=== PATIENT | male | born 1955 | race Caucasian/White ===

== ENCOUNTER 2020-06-19 14:55 | Emergency (ER) | payer OTHER, SELFPAY ==
--- NOTE | ~2020-06-19 | XR_ITS ---
EXAMINATION: XR abdomen/kub 1V INDICATION: Possible accidental ingestion of dentures TECHNIQUE: Supine views of the abdomen were obtained on 2 radiographs. COMPARISON: None FINDINGS: No radiopaque foreign body is identified. The bowel gas pattern is normal. There is calcifi ed atherosclerosis. There is mild osteoarthritis of the hips. No dilated loops of bowel are identifie d. IMPRESSION: 1. No definite radiopaque foreign body identified. Reviewed, dictated and finalized at location A. [employer] ATTORNEY
--- NOTE | 2020-06-19 15:04 | ED.GENADULT ---
HPI - General Adult General Chief complaint: Dental/Oral Stated complaint: pain Time Seen by Provider: 06/19/20 15:21 Source: patient and RN notes reviewed Mode of arrival: ambulatory Limitations: no limitations History of Present Illness HPI narrative: 65-year-old male presents with concern for possibly ingesting a foreign body. He reports he believes he swallowed his bottom row dentures while he was sleeping. He denies any indigestion, nausea, vomiting, abdominal pain, constipation MD complaint: Foreign body ingestion Related Data Home Medications Medication Instructions Recorded Confirmed alfuzosin 10 mg PO DAILY 06/19/20 06/19/20 amlodipine 10 mg DAILY 06/19/20 06/19/20 gabapentin 300 mg TID 06/19/20 06/19/20 lisinopril 20 mg DAILY 06/19/20 06/19/20 oxybutynin chloride 10 mg PO DAILY 06/19/20 06/19/20 tamsulosin 0.4 mg PO DAILY 06/19/20 06/19/20 Allergies Allergy/AdvReac Type Severity Reaction Status Date / Time No Known Allergies Allergy Mild Verified 04/20/08 13:00 Review of Systems Review of Systems: Narrative: CONSTITUTIONAL: Denies malaise, chills, sweats, or fever. CARDIOVASCULAR: Denies chest pain, palpitations, or edema. RESPIRATORY: Denies cough or dyspnea. GASTROINTESTINAL: Denies abdominal pain, nausea, vomiting, diarrhea, bloody, or mucous stools. All systems reviewed & are unremarkable except as noted in HPI and below PMFSH Comments At time of signature, agree with nursing past medical, surgical, social and family history. There is no relevant family history pertinent to the presenting complaint Exam Narrative: Exam Narrative: GENERAL: Well-appearing, well-nourished, and in no acute distress. HEAD: Normocephalic. EYES: PERRLA, conjunctivae clear. NECK: Supple. No lymphadenopathy CHEST: Clear to auscultation. No respiratory distress. HEART: Regular rate and rhythm. ABDOMEN: Soft, nontender upon palpation, nondistended, normal active bowel sounds, no palpable or pulsatile masses, no guarding. SKIN: Warm, dry NEURO: Alert and oriented x3. PSYCH: Normal mood and affect Course Course Emergency Course: Patient is aware of diagnosis, understands and agrees to treatment plan. Anticipatory guidance given. Patient agrees to follow-up as directed and is aware of reasons to seek care at the emergency department. Portions of this record may have been created with voice recognition software Vital Signs Vital signs: Vital Signs Temperature 98 F 06/19/20 15:05 Pulse Rate 92 06/19/20 15:05 Respiratory Rate 20 06/19/20 15:05 Blood Pressure 147/83 H 06/19/20 15:05 Pulse Oximetry 100 06/19/20 15:05 Temperature 98 F 06/19/20 15:05 Pulse Rate 92 06/19/20 15:05 Respiratory Rate 20 06/19/20 15:05 Blood Pressure 147/83 H 06/19/20 15:05 Pulse Oximetry 100 06/19/20 15:05 Reviewed. Medical Decision Making MDM Narrative Medical decision making narrative: Exam findings and imaging show no acute concerns or changes; patient is non-toxic appearing and is in no distress. Patient is appropriate for outpatient treatment and follow-up. Vital Signs Vital Signs: Vital Signs Temperature 98 F 06/19/20 15:05 Pulse Rate 92 06/19/20 15:05 Respiratory Rate 20 06/19/20 15:05 Blood Pressure 147/83 H 06/19/20 15:05 Pulse Oximetry 100 06/19/20 15:05 Temperature 98 F 06/19/20 15:05 Pulse Rate 92 06/19/20 15:05 Respiratory Rate 20 06/19/20 15:05 Blood Pressure 147/83 H 06/19/20 15:05 Pulse Oximetry 100 06/19/20 15:05 Imaging Data My impression: Images reviewed, interpreted by radiologist, agree, see report. Radiologist's impression: EXAMINATION: XR abdomen/kub 1V INDICATION: Possible accidental ingestion of dentures TECHNIQUE: Supine views of the abdomen were obtained on 2 radiographs. COMPARISON: None FINDINGS: No radiopaque foreign body is identified. The bowel gas pattern is normal. There is calcified atherosclerosis. There is mild oste
[2020-06-19 15:05] VITALS: BP 147/83; PULSE 92; RESP 20; TEMP 36.6; O2SAT 100
== END 2020-06-19 15:28 | disposition home or self-care (01) ==
PROVIDERS: Emergency Provider Nurse Practitioner; PCP Family Medicine
DX: Z71.1 Person with feared health complaint in whom no diagnosis is made (principal); I25.10 Atherosclerotic heart disease of native coronary artery without angina pectoris; I10 Essential (primary) hypertension; Z85.46 Personal history of malignant neoplasm of prostate
CPT/HCPCS: 74018; 99213; G0463

== ENCOUNTER 2020-06-21 12:56 | Emergency (ER) | payer OTHER, SELFPAY ==
--- NOTE | ~2020-06-21 | XR_ITS ---
EXAMINATION: XR wrist LT min 3V DATE: 06/21/2020 13:53 INDICATION: Left wrist pain and swelling TECHNIQUE: Four views of the left wrist were obtained. COMPARISON: 07/23/2019 FINDINGS: There is an old healed fracture of the distal ulna. Again seen is unchanged advanced osteoa rthritis of the radial scaphoid joint and moderate osteoarthritis of the distal radial ulnar joint. T here is mild osteoarthritis at the first carpometacarpal joint. Dorsal soft tissue swelling is seen o verlying the carpals on the lateral view. IMPRESSION: 1. Dorsal soft tissue swelling of the hand without definite acute osseous abnormality. 2. Polyarticular osteoarthritis. Reviewed, dictated and finalized at location A. E CHOREOGRAPHER IMPRESSION: 1. Dorsal soft tissue swelling of the hand without definite acute osseous abnor mality. 2. Polyarticular osteoarthritis.
[2020-06-21 12:54] VITALS: BP 178/118; PULSE 100; RESP 18; TEMP 36.4; O2SAT 100
[2020-06-21] MEDS: fentaNYL CITRATE INJ (*CRX) 100 MCG/2 ML VIAL 50 MCG IV PUSH (13:13)
[2020-06-21 13:15] LABS: Basophils Absolute Auto 0.1 K/mm3 (0.0-0.1); Basophils Percent Auto 0.7 % (0.2-1.2); Eosinophils Absolute Auto 0.1 K/mm3 (0-0.3); Eosinophils Percent Auto 1.2 % (0-4.4); Hematocrit 34.3 % (42.0-52.0); Hemoglobin 12.6 g/dL (14.0-18.0); Immature Granulocyte Absolute 0.06 K/mm3 (0.00-0.031); Immature Granulocyte Percent A 0.7 % (0-0.5); Lymphocytes Absolute Auto 1.04 K/mm3 (0.9-3.2); Lymphocytes Percent Auto 12.6 % (18.3-44.2); Mean Corpuscular HGB Conc 36.7 g/dl (32-36); Mean Corpuscular Hemoglobin 33.5 pg (26-34); Mean Corpuscular Volume 91.2 fl (80-100); Mean Platelet Volume 8.9 fl (7.4-10.4); Monocytes Absolute Auto 0.9 K/mm3 (0.1-0.6); Monocytes Percent Auto 11.3 % (2.6-8.5); Neutrophils Percent Auto 73.5 % (45.5-73.1); Platelet Count Result 160 k/mm3 (150-375); Red Blood Count 3.76 M/mm3 (4.6-6.20); Red Cell Distribution Width 12.7 % (11.5-14.5); White Blood Count 8.2 K/mm3 (4.5-10.0)
[2020-06-21 13:30] LABS: Alanine Aminotransferase 21 U/L (4-50); Albumin Level 4.3 g/dL (3.5-5.1); Alkaline Phosphatase 81 U/L (38-126); Anion Gap 10 mmol/L (8-16); Aspartate Amino Transferase 36 U/L (17-59); Bilirubin,Total 1.1 mg/dL (0.2-1.3); Blood Urea Nitrogen 15 mg/dL (9-20); CRP 1.1 mg/dL (<1.0); Calcium 9.1 mg/dL (8.4-10.2); Carbon Dioxide 24 mmol/L (22-30); Chloride 101 mmol/L (98-107); Estimated CRCL calculation 63 ml/min; Estimated Glomerular Filt Rate > 60; Glucose 105 mg/dL (75-110); Potassium 4.3 mmol/L (3.4-5.0); Sodium 135 mmol/L (137-145); Uric Acid 7.9 mg/dL (3.5-8.5)
--- NOTE | 2020-06-21 14:37 | ED.GENADULT ---
HPI - General Adult General Chief complaint: Extremity Injury, Upper Stated complaint: wrist pain/swelling Time Seen by Provider: 06/21/20 12:56 Source: patient Mode of arrival: EMS Limitations: no limitations History of Present Illness HPI narrative: 65-year-old with a history of lymphoma, hepatitis C, hypertension, CKD here with complaints of left wrist pain for past 2 days. Patient states that there is increasing pain and swelling since this morning. He denies any trauma. No history of fever or chills. No previous history of gout. Denies IV drug abuse. Onset (ago): day(s) (2) Location: upper extremity Radiation: non-radiation Severity: moderate Pain Consistency: constant Relieving factors: none Exacerbating factors: movement Associated symptoms: denies other symptoms Related Data Home Medications Medication Instructions Recorded Confirmed alfuzosin 10 mg PO DAILY 06/19/20 06/19/20 amlodipine 10 mg DAILY 06/19/20 06/19/20 gabapentin 300 mg TID 06/19/20 06/19/20 lisinopril 20 mg DAILY 06/19/20 06/19/20 oxybutynin chloride 10 mg PO DAILY 06/19/20 06/19/20 tamsulosin 0.4 mg PO DAILY 06/19/20 06/19/20 Allergies Allergy/AdvReac Type Severity Reaction Status Date / Time No Known Allergies Allergy Mild Verified 06/21/20 13:03 Review of Systems Review of Systems: All systems reviewed & are unremarkable except as noted in HPI and below Constitutional: Constitutional: Reports no additional constitutional complaints ENT: Reports as per HPI Cardiovascular: Cardiovascular: Reports no additional cardiovascular complaints Respiratory: Respiratory: Reports no additional respiratory complaints Gastrointestinal: Gastrointestinal: Reports no additional gastrointestinal complaints Neurologic: Reports as per HPI Endocrine: Endocrine: Reports no additional endocrine complaints Exam Narrative: Exam Narrative: GENERAL: Well-appearing, well-nourished, and in no acute distress. HEAD: Normocephalic, atraumatic. EYES: PERRLA and EOMI. ENT: Nares clear, no rhinorrhea or epistaxis. Mucous membranes moist. NECK: Supple. CHEST: Clear to auscultation. No respiratory distress. HEART: Regular rate and rhythm. No murmur heard. Normal peripheral pulses. ABDOMEN: Soft, nontender, nondistended, normal active bowel sounds. Extremities left wrist swollen erythematous ten is swollen, tender painful range of motion SKIN: Warm, dry, no rash. NEURO: No focal deficits. Alert and oriented x3. PSYCH: Normal mood and affect. Course Course Emergency Course: Inform patient about his lab work, x-ray findings. Advised him to take prednisone as prescribed and pain medication as well. Recommended him to follow-up with his primary doctor. Vital Signs Vital signs: Vital Signs Temperature 36.4 C 06/21/20 12:54 Pulse Rate 100 06/21/20 12:54 Respiratory Rate 18 06/21/20 12:54 Blood Pressure 178/118 H 06/21/20 12:54 Pulse Oximetry 100 06/21/20 12:54 Temperature 36.4 C 06/21/20 12:54 Pulse Rate 100 06/21/20 12:54 Respiratory Rate 18 06/21/20 12:54 Blood Pressure 178/118 H 06/21/20 12:54 Pulse Oximetry 100 06/21/20 12:54 Medical Decision Making Vital Signs Vital Signs: Vital Signs Temperature 36.4 C 06/21/20 12:54 Pulse Rate 100 06/21/20 12:54 Respiratory Rate 18 06/21/20 12:54 Blood Pressure 178/118 H 06/21/20 12:54 Pulse Oximetry 100 06/21/20 12:54 Temperature 36.4 C 06/21/20 12:54 Pulse Rate 100 06/21/20 12:54 Respiratory Rate 18 06/21/20 12:54 Blood Pressure 178/118 H 06/21/20 12:54 Pulse Oximetry 100 06/21/20 12:54 Lab Data Result diagrams: 06/21/20 13:08 06/21/20 13:08 Labs: Lab Results 06/21/20 06/21/20 Range/Units 13:08 13:08 WBC 8.2 (4.5-10.0) K/mm3 RBC 3.76 L (4.6-6.20) M/mm3 Hgb 12.6 L (14.0-18.0) g/dL Hct 34.3 L (42.0-52.0) % MCV 91.2 (80-100) fl MCH 33.5 (26-34) pg MCHC 36.7 H (32-36)
[2020-06-21 15:09] VITALS: BP 130/74; PULSE 74; RESP 17; TEMP 36.8; O2SAT 98
== END 2020-06-21 15:10 | disposition home or self-care (01) ==
PROVIDERS: Emergency Provider Family Medicine; PCP Family Medicine
DX: M25.532 Pain in left wrist (principal); Z86.19 Personal history of other infectious and parasitic diseases; Z85.72 Personal history of non-Hodgkin lymphomas; N18.9 Chronic kidney disease, unspecified; M19.032 Primary osteoarthritis, left wrist
CPT/HCPCS: 36415; 73110; 80053; 84550; 85025; 86140; 96374; 96375; 99284; A4565; J1100; J3010

== ENCOUNTER 2023-03-27 17:19 | Inpatient (IN) | payer MEDICARE, MEDICAID, SELFPAY ==
--- NOTE | ~2023-03-27 | CT_ITS ---
EXAMINATION: CT diagnostic chest wo con DATE: 03/27/2023 19:57 INDICATION: R Rib pain TECHNIQUE: Computed tomography (CT) of the chest was performed with 100 mL Omnipaque-350 intravenous contrast. Automated exposure control and iterative reconstruction technique were employed. The dose-l ength product was 169.62 mGy-cm. COMPARISON: None. FINDINGS: CHEST: Thoracic aorta: No significant dilation or calcification. Lung parenchyma and airways: Clear airways. Minimal bilateral dependent scar. Small focus of peripher al and groundglass opacities in the right lower lobe. Thoracic inlet, axillae and chest wall: No thyroid or soft tissue mass. No axillary lymphadenopathy. Symmetric bilateral gynecomastia. Mediastinum: No mass or lymphadenopathy. Heart and pericardium: Normal heart size. No pericardial effusion. Coronary artery calcifications: Heavy. Pleura: No effusion or mass. Upper abdomen: No significant finding. Thoracic bones: Nondisplaced right posterior 10th rib fracture. Uncomplicated appearing hardware fusi on of multiple left ribs. Multiple old left rib fractures. Old left midclavicular fracture. IMPRESSION: Nondisplaced right posterior 10th rib fracture. Small focus of peripheral right lower lobe opacity may represent adjacent atelectasis and/or small co ntusion. Reviewed, dictated and finalized at location K. IMPRESSION: Nondisplaced right posterior 10th rib fracture. Small focus of peripheral right lower lobe opacity may represent adjacent atele ctasis and/or small contusion.
--- NOTE | ~2023-03-27 | XR_ITS ---
EXAMINATION: XR chest 2V Exam Date/Time: 03/27/2023 17:40 CDT HISTORY: sob- fall x 2 days ago- pain to right side Comparison: 08/29/2017. RESULT: Lines, tubes, and devices: Multiple internally fixed left ribs. Lungs and pleura: Clear. Cardiomediastinal silhouette: Stable. Other: No acute osseous or upper abdominal finding. IMPRESSION: No acute cardiopulmonary process. Reviewed, dictated and finalized at location K.
[2023-03-27 17:25] VITALS: BP 144/97; PULSE 136; RESP 24; TEMP 36.7; O2SAT 100
--- NOTE | 2023-03-27 17:28 | ECG_ITS ---
Measurements Intervals [place] Rate: 123 P: 42 [place]: 174 QRS: 39 QRSD: 98 T: 62 QT: 302 QTc: 434 Interpretive Statements SINUS TACHYCARDIA LEFT VENTRICULAR HYPERTROPHY CANNOT RULE OUT SEPTAL INFARCTION NONSPECIFIC T-WAVE ABNORMALITY ABNORMAL ECG NO PREVIOUS ECG AVAILABLE FOR COMPARISON Electronically Signed On 03-28-2023 12:38:08 CDT by Kam Morales M.D.
[2023-03-27 17:47] LABS: Basophils Absolute Auto 0.1 K/mm3 (0.0-0.1); Basophils Percent Auto 0.7 % (0.2-1.2); Eosinophils Percent Auto 0.1 % (0-4.4); Hematocrit 39.3 % (42.0-52.0); Hemoglobin 13.8 g/dL (14.0-18.0); Immature Granulocyte Absolute 0.08 K/mm3 (0.00-0.031); Immature Granulocyte Percent A 0.8 % (0-0.5); Lymphocytes Absolute Auto 0.91 K/mm3 (0.9-3.2); Lymphocytes Percent Auto 9.1 % (18.3-44.2); Mean Corpuscular HGB Conc 35.1 g/dl (32-36); Mean Corpuscular Hemoglobin 31.5 pg (26-34); Mean Corpuscular Volume 89.7 fl (80-100); Mean Platelet Volume 9.4 fl (7.4-10.4); Monocytes Percent Auto 10.4 % (2.6-8.5); Neutrophils Absolute Auto 7.9 K/mm3 (1.3-6.7); Neutrophils Percent Auto 78.9 % (45.5-73.1); Platelet Count Result 138 k/mm3 (150-375); Red Blood Count 4.38 M/mm3 (4.6-6.20); Red Cell Distribution Width 14.2 % (11.5-14.5)
[2023-03-27 18:05] LABS: Alanine Aminotransferase 45 U/L (6-50); Albumin Level 4.5 g/dL (3.5-5.1); Alkaline Phosphatase 80 U/L (38-126); Anion Gap 15 mmol/L (8-16); Aspartate Amino Transferase 71 U/L (17-59); Bilirubin,Total 2.1 mg/dL (0.2-1.3); Blood Urea Nitrogen 22 mg/dL (9-20); Calcium 8.9 mg/dL (8.4-10.2); Carbon Dioxide 22 mmol/L (22-30); Chloride 91 mmol/L (98-107); Estimated CRCL calculation 52 ml/min; Estimated Glomerular Filt Rate > 60; Glucose 237 mg/dL (65-110); Sodium 128 mmol/L (137-145)
[2023-03-27 19:42] VITALS: BP 155/94; PULSE 113; RESP 21; O2SAT 98
[2023-03-27] MEDS: methocarbamoL 750 MG TABLET 1500 MG PO (20:14)
[2023-03-27] MEDS: HYDROcodone/acetaminophen (*CRX) 5-325 MG TABLET 2 TAB PO (20:14)
--- NOTE | 2023-03-27 20:26 | ED.GENADULT ---
HPI - General Adult General Chief complaint: Fall Stated complaint: Rib Pain Time Seen by Provider: 03/27/23 19:18 History of Present Illness HPI narrative: this is a 68-year-old male presenting ED with chief complaint of right rib pain. patient says that he fell 2 days ago and landed on his right side against the sink. Since then he has had increased pain. He states he cannot take pain medication due to history of heavy alcohol use and possible kidney injury. He states he has been hard for him to move around he has had decreased oral intake. Patient denies fever chills or productive cough. He does note pain with respiration. Related Data Home Medications Medication Instructions Recorded Confirmed alfuzosin 10 mg tablet,extended 10 mg PO DAILY 06/19/20 06/19/20 release 24 hr amlodipine 10 mg tablet 10 mg DAILY 06/19/20 06/19/20 gabapentin 300 mg capsule 300 mg TID 06/19/20 06/19/20 lisinopril 20 mg tablet 20 mg DAILY 06/19/20 06/19/20 oxybutynin chloride 10 mg 10 mg PO DAILY 06/19/20 06/19/20 tablet,extended release 24 hr tamsulosin 0.4 mg capsule 0.4 mg PO DAILY 06/19/20 06/19/20 Allergies Allergy/AdvReac Type Severity Reaction Status Date / Time No Known Allergies Allergy Mild Verified 06/21/20 13:03 [facility] Past Medical History Medical History Hypertension Social History Social History Gender identity (if verbalized by the patient): Male Exam Narrative: APPEARANCE: Patient appears older than his stated age Head: nasal deformity from previous surgery EYES: EOMI, NOSE: Atraumatic NECK: Trachea midline RESPIRATORY: No increased rate of breathing, clear to auscultation CARDIOVASCULAR: RRR, no peripheral edema ABDOMINAL: Non-distended MUSCULOSKELETAl: tenderness to palpation over the right ribcage NEURO: Alert. Moving 4/4 extremities SKIN:: Warm, dry. Normal color PSYCHIATRIC: Normal affect Course Vital Signs Vital signs: Vital Signs Temperature 98.1 F 03/27/23 17:25 Pulse Rate 136 H 03/27/23 17:25 Respiratory Rate 24 H 03/27/23 17:25 Blood Pressure 144/97 H 03/27/23 17:25 Pulse Oximetry 100 03/27/23 17:25 Oxygen Delivery Room Air 03/27/23 17:25 Temperature 98.1 F 03/27/23 17:25 Pulse Rate 113 H 03/27/23 19:42 Respiratory Rate 21 H 03/27/23 19:42 Blood Pressure 155/94 H 03/27/23 19:42 Pulse Oximetry 98 03/27/23 19:42 Oxygen Delivery Room Air 03/27/23 17:25 Medical Decision Making MDM Narrative Medical decision making narrative: -Presentation: 68-year-old male presenting 2 days after he fell and was sink with right ribcage pain. patient is tachycardic upon arrival. Given 2 L of fluid and pain medic control. CT chest been ordered to evaluate for rib fractures or possible pneumonia. 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 Metabolic panel significant for hyponatremia and hypochloremia. Patient has been fluid resuscitated. Kidney function normal. LFTs within acceptable limits. CT chest showed nondisplaced posterior rib fracture on the right side. Small contusion or atelectasis next to the site. Patient has no fever or white count. Early pneumonia is not excluded. -Discussion of Management/Consultants: none -Dx tests considered but not ordered: none -Procedures: none -Interventions: [place] 5 mg/325mg x 2, Robaxin, 2 L normal saline -Shared decision making / Disposition: Upon re-evaluation patient is improved. We tried to get the patient up to ambulate and he is weak with an unsteady gait. He
[2023-03-27] MEDS: SODIUM CHLORIDE 0.9% IV 2,000 ML 999 ML IV CONT (21:13)
--- NOTE | 2023-03-27 21:55 | PM.IMHP ---
H&P: HPI History of Present Illness Date/Time: 03/27/23 21:55 Chief Complaint: Fall Narrative: This is a 68-year-old male with past medical history significant for hypertension, benign prostatic hyperplasia. patient comes to the emergency room after he suffered a fall ground level with trauma to the ribcage patient found to have rib fracture or has been in a lot of pain at home unable to care for himself and decided to come to the emergency room. Patient denies any fevers, rigors, chills, loss of consciousness, nausea, vomiting, lightheadedness, dizziness. patient has been his usual state of health up until this point. EXAMINATION:? XR chest 2V Exam Date/Time:? 03/27/2023 17:40 CDT HISTORY: sob- fall x 2 days ago- pain to right side ? Comparison:? 08/29/2017. RESULT: Lines, tubes, and devices:? Multiple internally fixed left ribs. Lungs and pleura:? Clear. Cardiomediastinal silhouette:? Stable. Other:? No acute osseous or upper abdominal finding. ? IMPRESSION: No acute cardiopulmonary process. EXAMINATION: CT diagnostic chest wo con DATE: 03/27/2023 19:57 INDICATION: R Rib pain TECHNIQUE: Computed tomography (CT) of the chest was performed with 100 mL Omnipaque-350 intravenous contrast. Automated exposure control and iterative reconstruction technique were employed. The dose-length product was 169.62 mGy-cm. COMPARISON: None. FINDINGS: CHEST: Thoracic aorta: No significant dilation or calcification. Lung parenchyma and airways: Clear airways. Minimal bilateral dependent scar. Small focus of peripheral and groundglass opacities in the right lower lobe. Thoracic inlet, axillae and chest wall: No thyroid or soft tissue mass. No axillary lymphadenopathy. Symmetric bilateral gynecomastia. Mediastinum: No mass or lymphadenopathy. Heart and pericardium: Normal heart size. No pericardial effusion. Coronary artery calcifications: Heavy. Pleura: No effusion or mass. Upper abdomen: No significant finding. Thoracic bones: Nondisplaced right posterior 10th rib fracture. Uncomplicated appearing hardware fusion of multiple left ribs. Multiple old left rib fractures. Old left midclavicular fracture. IMPRESSION: Nondisplaced right posterior 10th rib fracture. Small focus of peripheral right lower lobe opacity may represent adjacent atelectasis and/or small contusion. EKG Rate 123 MI 174 QRSd 98 QT 302 QTc 434 --[place]-- P 42 QRS 39 T 62 SINUS TACHYCARDIA ABNORMAL RHYTHM ECG NO PREVIOUS ECG AVAILABLE FOR COMPARISON Review of Systems Review of Systems: fall, chest wall trauma, rib fx, pain with deep breaths, unable to care for self. Constitutional: Constitutional: Denies chills, Denies fatigue, Denies fever(s), Denies malaise, Denies night sweats, Reports weakness and Reports other ( poor oral intake) Eyes: Eyes: Denies change in vision ENT: Denies dysphagia, Denies vertigo, Denies dizziness, Denies nasal congestion, Denies nasal discharge and Denies odynophagia Cardiovascular: Cardiovascular: Denies chest pain, Denies radiating jaw, neck or arm pain and Denies palpitations Respiratory: Respiratory: Denies chest congestion, Denies cough, Denies excessive phlegm production and Reports pain on inspiration Gastrointestinal: Gastrointestinal: Denies abdominal pain, Denies dyspepsia, Denies heartburn, Denies diarrhea, Denies nausea and Denies vomiting Genitourinary: Genitourinary: Denies dysuria Musculoskeletal: Musculoskeletal: Reports other ( rib pain) Integumentary/Breasts: Skin/Breast: Denies rash Neurologic: Denies vertigo, Denies dizziness, Denies focal weakness and Denies Sensory deficit (Neuro) Psychiatric: Psychiatric: Reports no additional psychiatric complaints and Reports as per HPI Endocrine: Endocrine: Denies cold intolerance, Denies fatigue, Denies flushing, Denies heat intolerance, Denies polyphagia, Denies polydipsia and Denies palpitations Hematologic/Lymphatic: Hematologic/Lymphatic: Report
--- NOTE | 2023-03-27 22:06 | PC.NURSE ---
Pt ambulated with assistance. Pt tolerated well with use of walker. Pt had c/o increased shortness of breath with movement.
--- NOTE | 2023-03-27 22:07 | PC.NURSE ---
Pt reported to this RN he did not feel safe to go home due to weakness. Pt reports he has not been able to eat or drink for three days due to pain and inability to ambulate around home alone.
[2023-03-27 22:56] VITALS: BP 145/80; PULSE 94; RESP 17; O2SAT 95
--- NOTE | 2023-03-27 22:58 | PC.NURSE ---
Pt provided dinner.
[2023-03-27 23:20] VITALS: PULSE 97; RESP 21; O2SAT 99
--- NOTE | 2023-03-27 23:57 | ADMGEN ---
This patient, Jorge A Schmitz, was admitted to Medical Room 240-01. Patient/family oriented to hospital policies and general routines including ID bracelet, bed and alarms, visiting hours, pain management, procedures, bathroom and other care routines, personal items, smoking policy, room service/diet, and visiting hours. Information on how to activate the Rapid Response Team has been discussed. Patient/Family are encouraged to report perceived risks to care and to ask questions if they do not understand what they are told or what they should do.
[2023-03-28] VITALS (9 sets, daily range): BP systolic 121–156; BP diastolic 72–84; PULSE 78–97; RESP 16; TEMP 36.4–36.6; O2SAT 95–98; BMI 20.9
[2023-03-28] MEDS: LACTATED RINGERS 1,000 ML 125 ML IV CONT ×2 (00:34→08:34)
[2023-03-28] MEDS: HYDROmorphone HCL INJ (*CRX) 1 MG/ML SYR 0.5 MG IV PUSH ×5 (00:34→23:01)
[2023-03-28] MEDS: traMADol HCL (*CRX) 50 MG TABLET PO (03:47)
[2023-03-28] MEDS: FERROUS SULFATE 325 MG TABLET DR BY MOUTH (08:27)
[2023-03-28] MEDS: hydroCHLOROthiazide 12.5 MG CAPSULE PO (08:27)
[2023-03-28] MEDS: lisinopriL 20 MG TABLET BY MOUTH (08:27)
[2023-03-28] MEDS: oxyBUTYnin CHLORIDE XL 5 MG TAB.ER.24 10 MG PO (08:27)
[2023-03-28] MEDS: PANTOPRAZOLE 40 MG TABLET PO (08:27)
[2023-03-28] MEDS: GABAPENTIN 300 MG CAPSULE BY MOUTH ×3 (08:27→17:29)
--- NOTE | 2023-03-28 08:27 | PM.IMPN ---
Progress Note: A&P Assessment and Plan (1) Fracture of rib: Code(s): S22.39XA - Fracture of one rib, unspecified side, initial encounter for closed fracture Status: Acute Assessment and Plan: Right-sided rib fractures, incentive spirometer use and pain medication. Encourage deep breathing and cough. Monitor for pneumonia development. (2) Hyponatremia: Code(s): E87.1 - Hypo-osmolality and hyponatremia Status: Acute Assessment and Plan: History of alcohol abuse, states he no longer drinks. Patient is status post fluid rehydration in the emergency department. Sodium 127 on a.m. labs. Patient complains of generalized weakness but no other neurologic symptoms no significant headache. Prior history hyponatremia unlikely to been an acute drop. Discontinue HCTZ. Will monitor and consider Nephrology consult if any significant change. (3) Debility: Code(s): R53.81 - Other malaise Status: Acute Assessment and Plan: PT OT and case management for possible acute rehabilitation. (4) Acute dehydration: Code(s): E86.0 - Dehydration Status: Acute Assessment and Plan: Status post fluid rehydration in the emergency department and on IV fluids currently. Patient is tolerating a diet. Will consider stopping IV fluids. (5) Hyperglycemia: Code(s): R73.9 - Hyperglycemia, unspecified Status: Acute Assessment and Plan: No reported diabetic history but glucose level was 237 on initial labs. Hemoglobin A1c 5.1. Will monitor glucose on daily labs only. (6) Hypomagnesemia: Code(s): E83.42 - Hypomagnesemia Status: Acute Assessment and Plan: Magnesium 1.4. Ordered IV replacement and daily checks. (7) Hypertension: Code(s): I10 - Essential (primary) hypertension Status: Acute Assessment and Plan: Stable hypertension at this time. No acute intervention needed. Blood pressure reviewed on 03/28 Plan Pain control PT/OT consult case management consult, consider acute rehabilitation placement as patient lives alone and is experiencing debility hyponatremia history and active, consider Nephrology consult if any significant acute changes occur monitor CIWA may discontinue if no elevated scores today as patient reports he no longer drinks incentive spirometer, encourage cough and deep breathing monitor and replace electrolytes as needed Time Spent With Patient Time with patient: Greater than 35 minutes Subjective Date/time seen: 03/28/23 08:27 Interval history: This is a 68-year-old male patient admitted to the hospital to right rib fractures and dizziness ambulating at home. Patient has a history of prior alcohol abuse but states he quit drinking about a year ago. Upon your assessment patient found to be hyponatremic. He received IV fluids for dehydration and was admitted on LR at 125 mL/hr. Patient reports that he still has pain in the right lower chest area especially when taking a deep breath but he is using his incentive spirometer. Patient still feels weak and concerned about falling. He denies nausea or vomiting. He denies hallucinations. Patient reports a past history of low sodium low potassium and low magnesium. Review of Systems Review of Systems: All systems reviewed & are unremarkable except as noted in HPI and below Exam Narrative: GENERAL: Chronically ill appearing, alert and oriented, in no apparent distress. He is pleasant and conversant in full sentences. HEENT: Pupils are equally round and briskly reactive to light. Extraocular muscles are intact. Oral mucous membranes are moist without lesions. Numerous acne lesions on the face some dry and scaly, nose is is growing hair and dark appearing from prior skin graft due to skin cancer NECK: The patient has no noted JVD. No adenopathy is appreciated. CHEST/LUNGS: Lungs are clear bilaterally without rhonchi, rales, or wheezes. Right lower
[2023-03-28] MEDS: MIRABEGRON 50 MG ER TABLET PO (08:28)
[2023-03-28] MEDS: SUCRALFATE 1 GM TABLET PO ×3 (08:28→17:29)
[2023-03-28] MEDS: amLODIPine BESYLATE 5 MG TABLET 10 MG PO (08:28)
[2023-03-28] MEDS: ATORVASTATIN 20 MG TABLET PO (08:28)
[2023-03-28] MEDS: METOPROLOL SUCCINATE EXT REL 50 MG TABCR PO (08:28)
[2023-03-28] MEDS: LIPASE/AMYLASE/PROTEASE 12,000 UNITS CAP 6 CAP PO ×3 (08:28→17:29)
[2023-03-28] MEDS: TAMSULOSIN HCL 0.4 MG CAPSULE PO (08:28)
[2023-03-28] MEDS: THIAMINE HCL 200 MG/2 ML VIAL 100 MG IV PUSH (08:33)
[2023-03-28] MEDS: ENOXAPARIN 40 MG/0.4 ML SYRINGE SUB-Q (08:41)
[2023-03-28 08:42] LABS: Hematocrit 32.2 % (42.0-52.0); Hemoglobin 10.9 g/dL (14.0-18.0); Immature Platelet Fraction Pct 4.9 % (0.9-11.2); Mean Corpuscular HGB Conc 33.9 g/dl (32-36); Mean Corpuscular Hemoglobin 31.4 pg (26-34); Mean Corpuscular Volume 92.8 fl (80-100); Mean Platelet Volume 10.4 fl (7.4-10.4); Platelet Count Result 90 k/mm3 (150-375); Red Blood Count 3.47 M/mm3 (4.6-6.20); White Blood Count 4.6 K/mm3 (4.5-10.0)
[2023-03-28 08:56] LABS: Anion Gap 4 mmol/L (8-16); Blood Urea Nitrogen 16 mg/dL (9-20); Calcium 8.2 mg/dL (8.4-10.2); Carbon Dioxide 26 mmol/L (22-30); Chloride 97 mmol/L (98-107); Estimated CRCL calculation 66 ml/min; Estimated Glomerular Filt Rate > 60; Glucose 114 mg/dL (65-110); Magnesium 1.4 mg/dL (1.6-2.3); Potassium 3.9 mmol/L (3.4-5.0); Sodium 127 mmol/L (137-145)
[2023-03-28 09:18] LABS: Hemoglobin A1C 5.1 % (<5.7)
[2023-03-28 10:20] LABS: Appearance Urine Clear (Clear); Bilirubin Urine Negative (Negative); Blood Urine Negative (Negative); Color Urine Yellow (Yellow); Glucose Urine UA Negative (Negative); Ketones Urine Negative (Negative); Leukocyte Esterase Ur Negative LEU/UL (Negative); Nitrate Urine Negative (Negative); Protein Urine Negative (Negative); Specific Grav Ur 1.013 (1.001-1.035)
[2023-03-28 10:21] LABS: Add Urine Microscopic? NO
[2023-03-28 10:25] LABS: Potassium Urine Random 21.7 meq/L
[2023-03-28] MEDS: MAGNESIUM SULFATE 3GM/D5W100ML 3 GM/100 ML BAG IVPB (10:35)
--- NOTE | 2023-03-28 14:10 | PCPTNOTE ---
1400 pt refused PT eval at this time--just finished with OT, tired and pain; asked me to come back later.
[2023-03-28] MEDS: BACITRACIN OINTMENT 15 GM TUBE 1 APPLIC TOPICAL ×2 (15:35→20:33)
--- NOTE | 2023-03-28 18:14 | PC.NURSE ---
On 03/28/23, the Licence pending nurse, Valentina Stafford, provided care and completed [facility] documentation on this patient. I have reviewed the Licence pending nurse's documentation and agree with the findings.
[2023-03-29] VITALS (7 sets, daily range): BP systolic 108–142; BP diastolic 63–81; PULSE 70–74; RESP 16–19; TEMP 36.3–36.4; O2SAT 91–97
[2023-03-29 02:46] LABS: IFOB Positive Control Positive; Immunochemical Fecal Occult Bl Negative (N)
[2023-03-29] MEDS: HYDROmorphone HCL INJ (*CRX) 1 MG/ML SYR 0.5 MG IV PUSH ×3 (03:08→14:12)
[2023-03-29 05:36] LABS: Hemoglobin 10.5 g/dL (14.0-18.0); Immature Platelet Fraction Pct 7.1 % (0.9-11.2); Mean Corpuscular HGB Conc 33.9 g/dl (32-36); Mean Corpuscular Volume 94.5 fl (80-100); Mean Platelet Volume 10.9 fl (7.4-10.4); Platelet Count Result 90 k/mm3 (150-375); Red Blood Count 3.28 M/mm3 (4.6-6.20); Red Cell Distribution Width 13.6 % (11.5-14.5); White Blood Count 5.4 K/mm3 (4.5-10.0)
[2023-03-29 05:37] LABS: Alanine Aminotransferase 23 U/L (6-50); Albumin Level 3.4 g/dL (3.5-5.1); Alkaline Phosphatase 95 U/L (38-126); Anion Gap 4 mmol/L (8-16); Aspartate Amino Transferase 67 U/L (17-59); Bilirubin,Total 1.1 mg/dL (0.2-1.3); Blood Urea Nitrogen 12 mg/dL (9-20); Calcium 8.1 mg/dL (8.4-10.2); Carbon Dioxide 25 mmol/L (22-30); Chloride 94 mmol/L (98-107); Estimated CRCL calculation 66 ml/min; Estimated Glomerular Filt Rate > 60; Glucose 114 mg/dL (65-110); Magnesium 2.1 mg/dL (1.6-2.3); Potassium 3.7 mmol/L (3.4-5.0); Sodium 123 mmol/L (137-145)
[2023-03-29] MEDS: TAMSULOSIN HCL 0.4 MG CAPSULE PO (08:11)
[2023-03-29] MEDS: MIRABEGRON 50 MG ER TABLET PO (08:11)
[2023-03-29] MEDS: LIPASE/AMYLASE/PROTEASE 12,000 UNITS CAP 6 CAP PO ×3 (08:11→17:18)
[2023-03-29] MEDS: SUCRALFATE 1 GM TABLET PO ×3 (08:11→15:58)
[2023-03-29] MEDS: GABAPENTIN 300 MG CAPSULE BY MOUTH ×3 (08:11→17:18)
[2023-03-29] MEDS: PANTOPRAZOLE 40 MG TABLET PO (08:12)
[2023-03-29] MEDS: lisinopriL 20 MG TABLET BY MOUTH (08:12)
[2023-03-29] MEDS: FERROUS SULFATE 325 MG TABLET DR BY MOUTH (08:12)
[2023-03-29] MEDS: amLODIPine BESYLATE 5 MG TABLET 10 MG PO (08:12)
[2023-03-29] MEDS: ATORVASTATIN 20 MG TABLET PO (08:12)
[2023-03-29] MEDS: oxyBUTYnin CHLORIDE XL 5 MG TAB.ER.24 10 MG PO (08:12)
[2023-03-29] MEDS: THIAMINE HCL 200 MG/2 ML VIAL 100 MG IV PUSH (08:13)
[2023-03-29] MEDS: METOPROLOL SUCCINATE EXT REL 50 MG TABCR PO (08:15)
--- NOTE | 2023-03-29 09:07 | PM.IMPN ---
Progress Note: A&P Assessment and Plan (1) Fracture of rib: Code(s): S22.39XA - Fracture of one rib, unspecified side, initial encounter for closed fracture Status: Acute Assessment and Plan: Right-sided rib fractures, incentive spirometer use and pain medication. Encourage deep breathing and cough. Monitor for pneumonia development. IV pain medication discontinued in transition to oral [place]. (2) Hyponatremia: Code(s): E87.1 - Hypo-osmolality and hyponatremia Status: Acute Assessment and Plan: History of alcohol abuse, states he no longer drinks. Patient is status post fluid rehydration in the emergency department. Sodium 127 on a.m. labs. Patient complains of generalized weakness but no other neurologic symptoms no significant headache. Prior history hyponatremia unlikely to have been an acute drop. Discontinue HCTZ. 03/29: Sodium dropped to 123. Added salt tabs BID and will recheck this evening and again with morning labs. Consult nephrology tomorrow if not stabilized or if significant shift. Possibly related to pain and pain medication. (3) Debility: Code(s): R53.81 - Other malaise Status: Acute Assessment and Plan: PT OT and case management for possible acute rehabilitation. (4) Acute dehydration: Code(s): E86.0 - Dehydration Status: Acute Assessment and Plan: Status post fluid rehydration in the emergency department and on IV fluids currently. Patient is tolerating a diet. Will consider stopping IV fluids. 03/29: IV fluids discontinued, maintaining adequate PO intake (5) Hyperglycemia: Code(s): R73.9 - Hyperglycemia, unspecified Status: Acute Assessment and Plan: No reported diabetic history but glucose level was 237 on initial labs. Hemoglobin A1c 5.1. Will monitor glucose on daily labs only. (6) Hypomagnesemia: Code(s): E83.42 - Hypomagnesemia Status: Acute Assessment and Plan: Magnesium 1.4. Ordered IV replacement and daily checks. 03/29: Normal results after IV replacement (7) Hypertension: Code(s): I10 - Essential (primary) hypertension Status: Acute Assessment and Plan: Stable hypertension at this time. No acute intervention needed. Blood pressure reviewed on 03/29 Plan Pain control changed to PO PT/OT consult case management consult, consider acute rehabilitation placement as patient lives alone and is experiencing debility hyponatremia history and active, consider Nephrology consult if any significant acute changes occur incentive spirometer, encourage cough and deep breathing monitor and replace electrolytes as needed Time Spent With Patient Time with patient: 25 - 35 minutes Subjective Date/time seen: 03/29/23 09:07 Interval history: 03/28: This is a 68-year-old male patient admitted to the hospital to right rib fractures and dizziness ambulating at home. Patient has a history of prior alcohol abuse but states he quit drinking about a year ago. Upon your assessment patient found to be hyponatremic. He received IV fluids for dehydration and was admitted on LR at 125 mL/hr. Patient reports that he still has pain in the right lower chest area especially when taking a deep breath but he is using his incentive spirometer. Patient still feels weak and concerned about falling. He denies nausea or vomiting. He denies hallucinations. Patient reports a past history of low sodium low potassium and low magnesium. 03/29: Patient seen this morning after ambulating with therapy. He is having significant right-sided rib pain along with dyspnea after exertion. Labs reviewed and sodium level has dropped to 123. Patient does not seem to have any neurologic changes with this. Suspect that he has been on the low side for a while at this is worse due to pain and IV pain medication. Will initiate salt tabs and consider Nephrology consult tomorrow if not better. Patient w
[2023-03-29] MEDS: HYDROcodone/acetaminophen (*CRX) 10-325 MG TABLET 1 TAB PO ×3 (10:16→20:46)
[2023-03-29] MEDS: SODIUM CHLORIDE 1 GM TABLET PO ×2 (10:16→17:19)
[2023-03-29] MEDS: BACITRACIN OINTMENT 15 GM TUBE 1 APPLIC TOPICAL ×2 (10:18→20:47)
[2023-03-29 18:59] LABS: Anion Gap 8 mmol/L (8-16); Blood Urea Nitrogen 13 mg/dL (9-20); Calcium 8.6 mg/dL (8.4-10.2); Carbon Dioxide 25 mmol/L (22-30); Chloride 96 mmol/L (98-107); Estimated CRCL calculation 60 ml/min; Estimated Glomerular Filt Rate > 60; Glucose 177 mg/dL (65-110); Potassium 3.9 mmol/L (3.4-5.0); Sodium 129 mmol/L (137-145)
[2023-03-29] MEDS: ONDANSETRON INJ 4 MG/2 ML VIAL IV PUSH (19:00)
[2023-03-30] VITALS (7 sets, daily range): BP systolic 99–127; BP diastolic 57–63; PULSE 66–92; RESP 14–17; TEMP 36.2–37.7; O2SAT 95–98; BMI 20.9
[2023-03-30] MEDS: ONDANSETRON INJ 4 MG/2 ML VIAL IV PUSH ×2 (02:06→12:24)
[2023-03-30] MEDS: HYDROcodone/acetaminophen (*CRX) 10-325 MG TABLET 1 TAB PO ×4 (02:06→20:25)
[2023-03-30 05:23] LABS: Hematocrit 30.8 % (42.0-52.0); Hemoglobin 10.2 g/dL (14.0-18.0); Immature Platelet Fraction Pct 5.5 % (0.9-11.2); Mean Corpuscular HGB Conc 33.1 g/dl (32-36); Mean Corpuscular Hemoglobin 31.7 pg (26-34); Mean Corpuscular Volume 95.7 fl (80-100); Mean Platelet Volume 10.3 fl (7.4-10.4); Platelet Count Result 109 k/mm3 (150-375); Red Blood Count 3.22 M/mm3 (4.6-6.20); Red Cell Distribution Width 13.6 % (11.5-14.5); White Blood Count 5.3 K/mm3 (4.5-10.0)
[2023-03-30 05:39] LABS: Alanine Aminotransferase 26 U/L (6-50); Albumin Level 3.4 g/dL (3.5-5.1); Alkaline Phosphatase 115 U/L (38-126); Anion Gap 3 mmol/L (8-16); Aspartate Amino Transferase 53 U/L (17-59); Bilirubin,Total 0.9 mg/dL (0.2-1.3); Blood Urea Nitrogen 10 mg/dL (9-20); Calcium 8.5 mg/dL (8.4-10.2); Carbon Dioxide 27 mmol/L (22-30); Chloride 96 mmol/L (98-107); Estimated CRCL calculation 55 ml/min; Estimated Glomerular Filt Rate > 60; Glucose 129 mg/dL (65-110); Magnesium 1.6 mg/dL (1.6-2.3); Sodium 126 mmol/L (137-145)
[2023-03-30 05:44] LABS: Potassium 3.7 mmol/L (3.4-5.0)
[2023-03-30] MEDS: PANTOPRAZOLE 40 MG TABLET PO (08:36)
[2023-03-30] MEDS: LIPASE/AMYLASE/PROTEASE 12,000 UNITS CAP 6 CAP PO ×3 (08:36→16:46)
[2023-03-30] MEDS: THIAMINE HCL 100 MG TABLET PO (08:37)
[2023-03-30] MEDS: GABAPENTIN 300 MG CAPSULE BY MOUTH ×3 (08:37→16:46)
[2023-03-30] MEDS: SUCRALFATE 1 GM TABLET PO ×3 (08:37→16:46)
[2023-03-30] MEDS: TAMSULOSIN HCL 0.4 MG CAPSULE PO (08:37)
[2023-03-30] MEDS: ATORVASTATIN 20 MG TABLET PO (08:38)
[2023-03-30] MEDS: FERROUS SULFATE 325 MG TABLET DR BY MOUTH (08:38)
[2023-03-30] MEDS: lisinopriL 20 MG TABLET BY MOUTH (08:38)
[2023-03-30] MEDS: METOPROLOL SUCCINATE EXT REL 50 MG TABCR PO (08:38)
[2023-03-30] MEDS: MIRABEGRON 50 MG ER TABLET PO (08:39)
[2023-03-30] MEDS: oxyBUTYnin CHLORIDE XL 5 MG TAB.ER.24 10 MG PO (08:39)
[2023-03-30] MEDS: BACITRACIN OINTMENT 15 GM TUBE 1 APPLIC TOPICAL ×2 (08:42→20:33)
--- NOTE | 2023-03-30 10:30 | PCOTNOTE ---
Attempted to see Patient 2 times this A.M. Patient eating the 1st time. Patient declined performing activity until he had an IV placed.
[2023-03-30] MEDS: MAGNESIUM SULFATE 3GM/D5W100ML 3 GM/100 ML BAG IVPB (12:24)
--- NOTE | 2023-03-30 12:24 | PM.IMPN ---
Progress Note: A&P Assessment and Plan (1) Fracture of rib: Code(s): S22.39XA - Fracture of one rib, unspecified side, initial encounter for closed fracture Status: Acute Assessment and Plan: Right-sided rib fractures, incentive spirometer use and pain medication. Encourage deep breathing and cough. Monitor for pneumonia development. IV pain medication discontinued in transition to oral [place]. (2) Hyponatremia: Code(s): E87.1 - Hypo-osmolality and hyponatremia Status: Acute Assessment and Plan: History of alcohol abuse, states he no longer drinks. Patient is status post fluid rehydration in the emergency department. Patient complains of generalized weakness but no other neurologic symptoms no significant headache. Hold HCTZ. 03/29: Sodium dropped to 123. Added salt tabs BID and will recheck this evening and again with morning labs. 03/30: sodium 126. Continue to monitor. (3) Debility: Code(s): R53.81 - Other malaise Status: Acute Assessment and Plan: PT OT and case management for possible acute rehabilitation. (4) Acute dehydration: Code(s): E86.0 - Dehydration Status: Acute Assessment and Plan: Status post fluid rehydration in the emergency department. Patient is tolerating a diet. Will consider stopping IV fluids. 03/29: IV fluids discontinued, maintaining adequate PO intake (5) Hyperglycemia: Code(s): R73.9 - Hyperglycemia, unspecified Status: Acute Assessment and Plan: No reported diabetic history but glucose level was 237 on initial labs. Hemoglobin A1c 5.1. Will monitor glucose on daily labs only. (6) Hypomagnesemia: Code(s): E83.42 - Hypomagnesemia Status: Acute Assessment and Plan: Magnesium 1.4. Ordered IV replacement and daily checks. 03/29: Normal results after IV replacement (7) Hypertension: Code(s): I10 - Essential (primary) hypertension Status: Acute Assessment and Plan: Stable hypertension at this time. No acute intervention needed. Blood pressure reviewed on 03/29 Plan Pain control changed to PO PT/OT consult case management consult, consider acute rehabilitation placement Continue to monitor hyponatremia. incentive spirometer, encourage cough and deep breathing monitor and replace electrolytes as needed Subjective Date/time seen: 03/30/23 12:24 Interval history: Patient states that he is still having some pain with deep breaths and he is attempting to use his spirometry frequently. Discussed with him that movement and deep breathing could be uncomfortable for him for a while due to his fractured ribs. He denies any chest pain. Patient is still experiencing some hyponatremia and that does seem to be improving. Would like to keep an on it for 1 more day and possible discharge tomorrow. Plan to possibly discharge to [facility] Vs home. Discussed with care coordination. Review of Systems Review of Systems: All systems reviewed & are unremarkable except as noted in HPI and below Exam Narrative: GENERAL: Comfortable, no acute distress HENMT: moist mucous membranes EYES: EOM intact b/l NECK: no lymphadenopathy RESPIRATORY: clear to auscultation CARDIO: RRR GI: soft, nontender, bowel sounds present SKIN: no rashes EXTREMITIES: no edema, redness or tenderness Objective Data Vital Signs Vital Signs: Vital Signs - 24 hr 03/29/23 14:00 03/29/23 19:18 03/29/23 20:00 Temperature 97.6 F 97.4 F L Pulse Rate 74 70 74 Respiratory Rate 16 17 18 Blood Pressure 117/69 108/63 Pulse Oximetry 97 96 95 Oxygen Delivery Room Air 03/30/23 04:32 03/30/23 08:30 03/30/23 08:38 Temperature 97.5 F L Pulse Rate 66 92 92 Respiratory Rate 17 Blood Pressure 107/57 L 117/60 Pulse Oximetry 95 95 Oxygen Delivery 03/30/23 08:30 Temperature Pulse Rate Respiratory Rate Blood Pressure Pulse Oximetry Oxygen Delivery Room A
[2023-03-30 13:24] LABS: Sodium 127 mmol/L (137-145)
--- NOTE | 2023-03-30 15:11 | PCOTNOTE ---
Attempted again this P.M. Patient stated he is now not feeling well and now edgar a fever.
[2023-03-31] MEDS: HYDROcodone/acetaminophen (*CRX) 10-325 MG TABLET 1 TAB PO ×3 (03:00→15:09)
[2023-03-31 05:21] LABS: Hemoglobin 10.1 g/dL (14.0-18.0); Mean Corpuscular HGB Conc 33.7 g/dl (32-36); Mean Corpuscular Hemoglobin 32.1 pg (26-34); Mean Corpuscular Volume 95.2 fl (80-100); Mean Platelet Volume 10.4 fl (7.4-10.4); Platelet Count Result 120 k/mm3 (150-375); Red Blood Count 3.15 M/mm3 (4.6-6.20); Red Cell Distribution Width 13.7 % (11.5-14.5); White Blood Count 6.1 K/mm3 (4.5-10.0)
[2023-03-31 05:30] LABS: Alanine Aminotransferase 38 U/L (6-50); Albumin Level 3.5 g/dL (3.5-5.1); Alkaline Phosphatase 166 U/L (38-126); Anion Gap 7 mmol/L (8-16); Aspartate Amino Transferase 79 U/L (17-59); Bilirubin,Total 0.9 mg/dL (0.2-1.3); Blood Urea Nitrogen 15 mg/dL (9-20); Calcium 8.5 mg/dL (8.4-10.2); Carbon Dioxide 28 mmol/L (22-30); Chloride 93 mmol/L (98-107); Estimated CRCL calculation 47 ml/min; Estimated Glomerular Filt Rate 55; Glucose 125 mg/dL (65-110); Magnesium 2.1 mg/dL (1.6-2.3); Potassium 3.8 mmol/L (3.4-5.0); Sodium 128 mmol/L (137-145)
[2023-03-31 06:00] VITALS: BP 116/60; PULSE 65; RESP 16; TEMP 36.4; O2SAT 94
[2023-03-31] MEDS: LIPASE/AMYLASE/PROTEASE 12,000 UNITS CAP 6 CAP PO ×2 (09:42→12:07)
[2023-03-31 09:43] VITALS: PULSE 67
[2023-03-31] MEDS: BACITRACIN OINTMENT 15 GM TUBE 1 APPLIC TOPICAL (09:43)
[2023-03-31] MEDS: METOPROLOL SUCCINATE EXT REL 50 MG TABCR PO (09:43)
[2023-03-31] MEDS: lisinopriL 20 MG TABLET BY MOUTH (09:44)
[2023-03-31] MEDS: THIAMINE HCL 100 MG TABLET PO (09:44)
[2023-03-31] MEDS: PANTOPRAZOLE 40 MG TABLET PO (09:44)
[2023-03-31] MEDS: oxyBUTYnin CHLORIDE XL 5 MG TAB.ER.24 10 MG PO (09:44)
[2023-03-31] MEDS: GABAPENTIN 300 MG CAPSULE BY MOUTH ×2 (09:44→15:09)
[2023-03-31 09:46] VITALS: BP 112/56; PULSE 66; O2SAT 96
[2023-03-31] MEDS: ENOXAPARIN 40 MG/0.4 ML SYRINGE SUB-Q (10:35)
--- NOTE | 2023-03-31 11:25 | P.CDI_ITS ---
CDI Query Clarification Request BMI 20.9 Nutritional Diagnostic Statement Moderate protein calorie malnutrition related to loss of appetite, chronic illness as evidenced by poor intake <75% needs > 1 month; NFPE findings of moderate muscle and fat loss Please refer to the comprehensive nutrition assessment for further information. Please clarify severity of protein calorie malnutrition if known: * Mild * Moderate * Severe * Other/Unspecified
--- NOTE | 2023-03-31 11:39 | PM.DS ---
DS: Admitting Diagnosis Discharge Date 03/31/23 Admitting Diagnosis frequent falls, rib fracture. DS: Discharge Diagnosis Discharge Diagnosis (1) Fracture of rib: Code(s): S22.39XA - Fracture of one rib, unspecified side, initial encounter for closed fracture Status: Acute (2) Hyponatremia: Code(s): E87.1 - Hypo-osmolality and hyponatremia Status: Acute (3) Debility: Code(s): R53.81 - Other malaise Status: Acute (4) Acute dehydration: Code(s): E86.0 - Dehydration Status: Acute (5) Hyperglycemia: Code(s): R73.9 - Hyperglycemia, unspecified Status: Acute (6) Hypomagnesemia: Code(s): E83.42 - Hypomagnesemia Status: Acute (7) Hypertension: Code(s): I10 - Essential (primary) hypertension Status: Acute (8) Malnutrition: Qualifiers: Malnutrition type: protein-calorie malnutrition Protein-calorie malnutrition severity: moderate Qualified Code(s): E44.0 - Moderate protein-calorie malnutrition Code(s): E46 - Unspecified protein-calorie malnutrition Status: Acute DS: Summary Hospital Course Hospital Course: This a 68-year-old with past medical history of hypertension, BPH and history of alcohol abuse the presents to the ED on 03/27/2023 due to ground level fall and trauma to his ribcage. He was found to have rib fractures and is unable to care for himself at home. Patient was advised to use incentive spirometer and pain medication p.r.n care coordination consulted for placement. PT and OT consulted. Patient did have some hyponatremia post fluid resuscitation. His hydrochlorothiazide was discontinued and he was given some salt tabs. His sodium came back up and is still low but stable. Patient likely chronically hyponatremic but due to fluid resuscitation and did not appear that he was at the time. Patient was accepted into [facility] for rehab. His labs and vital signs are stable and he is medically clear for discharge at this time. Time Spent with Patient Time attestation: Total time spent providing and/or coordinating discharge services: Exam Narrative: GENERAL: Comfortable, no acute distress HENMT: moist mucous membranes EYES: EOM intact b/l NECK: no lymphadenopathy RESPIRATORY: clear to auscultation CARDIO: RRR GI: soft, nontender, bowel sounds present SKIN: no rashes EXTREMITIES: no edema, redness or tenderness DS: Data Data Completed and Pending Labs on day of discharge: Labs from last 24 hours 03/31/23 03/30/23 04:45 13:02 WBC 6.1 RBC 3.15 L Hgb 10.1 L Hct 30.0 L MCV 95.2 MCH 32.1 MCHC 33.7 RDW 13.7 Plt Count 120 L MPV 10.4 Sodium 128 L 127 L Potassium 3.8 Chloride 93 L Carbon Dioxide 28 Anion Gap 7 L BUN 15 D Creatinine 1.30 Estim Creat Clear Calc 47 Estimated GFR 55 L Glucose 125 H Calcium 8.5 Magnesium 2.1 Total Bilirubin 0.9 AST 79 H ALT 38 Alkaline Phosphatase 166 H Total Protein 6.0 L Albumin 3.5 Discharge Plan Discharge Attending physician on discharge: Branden Mackey Consulting providers: Justin Ellington Discharging Clinician: Mi Correa Patient Disposition: Home, Self-Care Activity: as tolerated Diet: heart healthy Discharge Instructions: Rib fracture: Take deep breaths and cough 10 times each hour Use incentive spirometer Apply ice Stay active but do not overdo yourself. Tylenol as needed. Discharge disposition: Take medications as prescribed Monitor blood pressures Avoid social areas, you wear a mask when in social settings Encouraged to continue with yearly vaccinations Return to the emergency department if he developed sudden shortness of breath, chest pain, nausea, vomiting, upset stomach or intractable diarrhea Return to the emergency department if you develop fever greater than 100.4 Follow-up with the primary care physician within 1-2 weeks Thank you
[2023-03-31] MEDS: SUCRALFATE 1 GM TABLET PO (12:07)
== END 2023-03-31 16:25 | DRG 206 ==
LOC: ANHED 21:52 → ANH2MED 23:06
PROVIDERS: Nurse Practitioner; Student in an Organized Health Care Education/Training Program; Admitting Provider Internal Medicine; Emergency Provider Emergency Medicine; Visit Provider Internal Medicine Critical Care Medicine
DX: S22.31XA Fracture of one rib, right side, initial encounter for closed fracture (principal); E87.1 Hypo-osmolality and hyponatremia; E44.0 Moderate protein-calorie malnutrition; R53.81 Other malaise; E86.0 Dehydration; R73.9 Hyperglycemia, unspecified; E83.42 Hypomagnesemia; I10 Essential (primary) hypertension; N40.0 Benign prostatic hyperplasia without lower urinary tract symptoms; F10.10 Alcohol abuse, uncomplicated; W19.XXXA Unspecified fall, initial encounter; E87.6 Hypokalemia; Z68.20 Body mass index [BMI] 20.0-20.9, adult
CPT/HCPCS: 36415; 71046; 71250; 80048; 80053; 81003; 82274; 83036; 83735; 84133; 84295; 85025; 85027; 85055; 93005; 96361; 96374; 96375; 96376; 97161; 97165; 97530; 97535; 99285; A9270; G0378; J1170; J1650; J2405; J3411; J3475; J7030; J7120

== ENCOUNTER 2023-11-17 13:45 | Inpatient (IN) | payer MEDICARE, MEDICAID, SELFPAY ==
[2023-11-17] VITALS (7 sets, daily range): BP systolic 141–158; BP diastolic 70–84; PULSE 89–99; RESP 17–26; TEMP 36.8–37.4; O2SAT 95–100; BMI 24.6
--- NOTE | ~2023-11-17 | CT_ITS ---
EXAMINATION: CT abdomen pelvis wo con DATE: 11/17/2023 15:36 INDICATION: Left flank pain starting yesterday. Vomiting started 2 days ago. TECHNIQUE: Computed tomography (CT) of the abdomen and pelvis was performed without intravenous contr ast. Automated exposure control and iterative reconstruction technique were employed. Exam dose: 371 .84 mGy-cm total exam DLP. COMPARISON: None. FINDINGS: Status post ORIF posterior lateral left eighth rib fracture. Healed posterior right 10th rib fracture. Mild discoid atelectasis or more likely scarring in the posterior basilar right lower lobe. The lung bases are clear of infiltrate or consolidation. Normal heart size. Coronary artery calcification. No pericardial or pleural effusion. Small sliding hiatal hernia. The liver, gallbladder, bile ducts, spleen, pancreas and pancreatic duct as well as adrenal glands an d kidneys appear unremarkable on this limited noncontrast examination. No urinary tract calculus or h ydroureteronephrosis is detected. Brachytherapy seeds are suggested at the prostate gland. There is extensive calcification of the abdominal aorta and prominent calcification of the celiac and superior mesenteric and renal arteries in addition to iliac and femoral arteries. No abdominal aorti c aneurysm. No intraperitoneal or retroperitoneal or pelvic mass lesion or adenopathy or ascites. Diverticulosis of the left colon cysts and to a lesser extent right colon; no CT evidence of divertic ulitis. No evidence of appendicitis. No bowel obstruction, bowel wall thickening, pneumatosis or intr aperitoneal free air is detected. Small fat-containing right inguinal hernia. Very small fat-containing umbilical hernia. Severe degenerative disease and minimal retrolisthesis at L5-S1. Degenerative changes at the apophyse al joints with slight grade 1 anterolisthesis at L4-5. No suspicious osteolytic or osteoblastic lesions are noted. IMPRESSION: No urinary tract calculus or hydroureteronephrosis Diverticulosis of the colon; no evidence of diverticulitis Small sliding hiatal hernia Extensive atherosclerosis Reviewed, dictated and finalized at [facility]. Reviewed, dictated and finalized at [facility].
--- NOTE | ~2023-11-17 | XR_ITS ---
XR wrist RT 2V DATE: 11/19/2023 14:31 INDICATION: Fall. Pain. History of surgery 2 years ago. TECHNIQUE: AP and lateral views COMPARISON: 07/23/2019 right wrist unfortunately is not available from PACS FINDINGS: Osteopenia. There is resection of the distal ulna and complete resection of the navicular bone. There is increased density, collapse and fragmentation of the triquetrum bone suggesting neuropathic change or less likely osteomyelitis. 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 The triquetrum bone appears to be largely resected. Old fracture deformity of the first metacarpal bone. Shortened fourth metacarpal bone. No recent fracture or dislocation is detected. Prominent radial artery calcification. IMPRESSION: Postoperative changes with resection of the scaphoid and triquetrum bones and distal ulna Collapse, increased density, fragmentation of the lunate bone, suggesting neuropathic change, less li opal osteomyelitis Osteopenia Old fracture deformity of the first metacarpal bone Reviewed, dictated and finalized at location B. IMPRESSION: Postoperative changes with resection of the scaphoid and triquetrum bones and distal ulna Collapse, increased density, fragmentation of the lunate bone, suggesting neuro pathic change, less likely osteomyelitis Osteopenia Old fracture deformity of the first metacarpal bone
--- NOTE | ~2023-11-17 | US_ITS ---
Renal-Bladder ultrasound Clinical History: Acute kidney injury Technique: Real-time sonographic imaging of the kidneys and urinary bladder was performed. Findings: The right kidney measures 11.2 cm in length and the left kidney measures 12.1 cm. There is no hydronephrosis or renal calculus identified. Renal cortical echogenicity is within normal limits. No renal mass lesion is identified. The urinary bladder is moderately distended at the time of this exam. No intraluminal echoes are iden tified. No abnormal wall thickening is seen. Impression: Unremarkable ultrasound of the kidneys and urinary bladder. Reviewed, dictated and finalized at location M. Impression: Unremarkable ultrasound of the kidneys and urinary bladder.
--- NOTE | ~2023-11-17 | XR_ITS ---
EXAMINATION: XR chest 1V portable DATE: 11/17/2023 15:29 INDICATION: Nausea and vomiting. Chills. TECHNIQUE: A single frontal view of the chest was obtained. COMPARISON: None. FINDINGS: There is no pneumonia, pleural effusion, or pneumothorax. The heart size is normal. There a re old healed left rib fractures. There is internal fixation of multiple left ribs. There is an old h ealed fracture of left clavicle. IMPRESSION: 1. No acute cardiopulmonary disease. Reviewed, dictated and finalized at location A.
--- NOTE | 2023-11-17 14:26 | ED.ABDPAIN ---
HPI - Abdominal Pain General Chief Complaint: Abdominal Pain Stated Complaint: l flank pain Time Seen by Provider: 11/17/23 13:51 Source: patient and EMS Mode of arrival: EMS Limitations: no limitations History of Present Illness HPI narrative: 68 years old white male came to the ED by ambulance from home complaining of left abdominal pain associated with nausea and frequent vomiting at least 20 times a day for the last 3 days denies any fever or chills, diarrhea or constipation. Patient reported having similar symptoms years ago secondary to pancreatitis last alcohol intake years ago. History of appendectomy. Related Data Home Medications Medication Instructions Recorded Confirmed gabapentin 300 mg capsule 300 mg TID 06/19/20 03/31/23 lisinopril 20 mg tablet 20 mg PO DAILY 06/19/20 03/31/23 oxybutynin chloride 10 mg 10 mg PO DAILY 06/19/20 03/31/23 tablet,extended release 24 hr tamsulosin 0.4 mg capsule 0.4 mg PO HS 06/19/20 03/31/23 atorvastatin 20 mg tablet 20 mg PO HS 03/28/23 03/31/23 ferrous sulfate 325 mg (65 mg 325 mg PO HS 03/28/23 03/31/23 iron) tablet (FeroSul) [id number] 3 cap PO TID 03/28/23 03/31/23 24,000-76,000-120,000 unit capsule,delayed rel (Creon) metoprolol succinate 50 mg 50 mg PO DAILY 03/28/23 03/31/23 tablet,extended release 24 hr mirabegron 50 mg tablet,extended 50 mg PO HS 03/28/23 03/31/23 release 24 hr (Myrbetriq) pantoprazole 40 mg tablet,delayed 40 mg PO DAILY 03/28/23 03/31/23 release ramelteon 8 mg tablet 8 mg PO HS 03/28/23 03/31/23 sucralfate 1 gram tablet 1 g PO TID 03/28/23 03/31/23 folic acid 1 mg tablet 1 mg PO HS 03/30/23 03/31/23 Allergies Allergy/AdvReac Type Severity Reaction Status Date / Time No Known Allergies Allergy Mild Verified 11/17/23 13:52 Review of Systems Review of Systems: All systems reviewed & are unremarkable except as noted in HPI and below PMFSH Past Medical History Medical History Hypertension Hypokalemia Hypomagnesemia Hyponatremia Family History Family History Father Lung cancer Social History Social History Smoking status: Never smoker Alcohol intake: former Alcohol use details: states stopped drinking 1 year ago Substance use: never Lack of Transportation: No Lack of Food: Never True Current Housing: I Have Housing Concerned About Future Housing: No Difficulty Paying Gas/Electric Bills: No Difficulty Paying for Meds: No Currently Unemployed: No Education: Trade/Vocational Certificate Difficulty w/ Childcare or Family Care: No Gender identity (if verbalized by the patient): Male Sexual Orientation (if Verbalized by the Patient): Straight or Heterosexual Spiritual care concerns: No Exam Narrative: General appearance: Well-developed, well-nourished, he looks in pain, hyperventilating, holding left upper abdomen Skin: Normal color, Head: Normocephalic, nontraumatic Eyes: Clear conjunctiva ENT: Oropharynx normal, ears normal, nose normal Neck: Supple, nontender Chest and respiratory: Airway patent, no respiratory distress, no accessory muscle use Heart: Regular rate/rhythm Abdomen: Soft, moderate tenderness left upper quadrant, no bruises, no rash no guarding or rebound Vascular: Normal peripheral pulses, normal capillary refill. Musculoskeletal: Normal range of motion, nontender back Neurologic: Alert and oriented ?3, [employer] TECHNICIAN is normal as tested, no gross motor deficit Course Consultations Consultation #1: DR VINSON Date: 11/17/23
[2023-11-17 14:34] LABS: Basophils Absolute Auto 0.1 K/mm3 (0.0-0.1); Basophils Percent Auto 0.7 % (0.2-1.2); Eosinophils Percent Auto 0.3 % (0-4.4); Hematocrit 51.1 % (42.0-52.0); Hemoglobin 16.7 g/dL (14.0-18.0); Immature Granulocyte Absolute 0.16 K/mm3 (0.00-0.031); Immature Granulocyte Percent A 1.3 % (0-0.5); Lymphocytes Absolute Auto 0.74 K/mm3 (0.9-3.2); Mean Corpuscular HGB Conc 32.7 g/dl (32-36); Mean Corpuscular Hemoglobin 30.3 pg (26-34); Mean Corpuscular Volume 92.7 fl (80-100); Mean Platelet Volume 9.5 fl (7.4-10.4); Monocytes Absolute Auto 0.9 K/mm3 (0.1-0.6); Monocytes Percent Auto 7.4 % (2.6-8.5); Neutrophils Absolute Auto 10.4 K/mm3 (1.3-6.7); Neutrophils Percent Auto 84.3 % (45.5-73.1); Platelet Count Result 306 k/mm3 (150-375); Red Blood Count 5.51 M/mm3 (4.6-6.20); Red Cell Distribution Width 16.2 % (11.5-14.5); White Blood Count 12.4 K/mm3 (4.5-10.0)
[2023-11-17] MEDS: SODIUM CHLORIDE 0.9% IV 1,000 ML 999 ML IV CONT ×3 (14:36→17:26)
[2023-11-17 14:48] LABS: Alanine Aminotransferase 25 U/L (6-50); Albumin Level 5.1 g/dL (3.5-5.1); Alkaline Phosphatase 48 U/L (38-126); Anion Gap 25 mmol/L (4-12); Aspartate Amino Transferase 43 U/L (17-59); Bilirubin,Total 1.3 mg/dL (0.2-1.3); Blood Urea Nitrogen 50 mg/dL (9-20); Calcium 9.6 mg/dL (8.4-10.2); Carbon Dioxide 13 mmol/L (22-30); Chloride 94 mmol/L (98-107); Glucose 109 mg/dL (65-110); Potassium 5.7 mmol/L (3.4-5.0); Sodium 132 mmol/L (137-145)
[2023-11-17 15:00] LABS: Estimated CRCL calculation 18 ml/min; Estimated Glomerular Filt Rate 16; Lipase 45 U/L (23-300)
[2023-11-17] MEDS: HYDROmorphone HCL INJ (*CRX) 1 MG/ML SYR 0.5 MG IV PUSH ×2 (15:15→19:55)
[2023-11-17] MEDS: ONDANSETRON INJ 4 MG/2 ML VIAL IV PUSH (15:15)
[2023-11-17 16:57] LABS: Appearance Urine Clear (Clear); Bilirubin Urine Negative (Negative); Blood Urine Negative (Negative); Color Urine Dark Yellow (Yellow); Glucose Urine UA Negative (Negative); Ketones Urine 1+ mg/dL (Negative); Leukocyte Esterase Ur Negative LEU/UL (Negative); Nitrate Urine Negative (Negative); Protein Urine Negative (Negative); Specific Grav Ur 1.017 (1.001-1.035); Urobilinogen Urine 0.2 mg/dL (<2.0); pH Urine 5.5 (5.0-9.0)
[2023-11-17 17:02] LABS: Ethanol < 10 mg/dL (<10)
[2023-11-17 17:23] LABS: Add Urine Microscopic? NO
--- NOTE | 2023-11-17 18:23 | PM.IMHP ---
H&P: HPI History of Present Illness Date/Time: 11/17/23 19:45 Chief Complaint: Vomiting and left flank pain. Narrative: This is a very pleasant 68-year-old male with hypertension, dyslipidemia, hypothyroidism, gastroesophageal reflux disease, prostate cancer status post radiation, pancreatitis with pancreatic insufficiency, and other comorbidities who presented to the emergency department via EMS from home for evaluation of vomiting and left flank pain. The patient provides the following history. He has not been feeling well for several days and estimates he has vomited at least 20 times a day the last 3 days. He is now having left-sided flank pain which he thinks may be related to vomiting so much. The symptoms are somewhat similar to when he had pancreatitis many years ago. He denies fever, chills, sweats, chest pain, shortness of breath, hematemesis, melena, and hematochezia. In the ED: He was afebrile on arrival with stable blood pressures. Labs were significant for a WBC count of 12.4, hemoglobin 16.7, hematocrit 51.1%, platelets 306, sodium 132, potassium 5.7, chloride 94, carbon dioxide 13, anion gap 25, BUN 50, creatinine 3.90, total protein 9.0. Urine demonstrated 1+ ketones. CT of the abdomen and pelvis was without acute findings. Chest x-ray was normal. He was given 3 L normal saline bolus and Lokelma and is being admitted in this setting for further treatment and evaluation. With further questioning he endorses occasional issues starting his stream, nocturia, urinary frequency, and occasional sensations of incomplete bladder evacuation. He has noticed that his urine is a bit darker the last couple of days. He has not necessarily noticed a decrease in urine output however. He has not been started on any new medications recently and denies NSAID use. Review of Systems Review of Systems: 12 systems were reviewed and are negative except for as per HPI. [facility] Past Medical History Medical History Arthritis Atherosclerosis Extensive atherosclerosis noted on abdominal CT taken 11/17/2023. Diverticulosis Gastroesophageal reflux disease Hyperlipidemia Hypertension Hypothyroidism Pancreatic insufficiency Pancreatitis Prostate cancer Skin cancer Surgical History Surgical History (Updated 11/17/23 @ 22:43 by Barb Casiano PA-C) History of appendectomy History of colonoscopy with polypectomy History of open reduction and internal fixation (ORIF) procedure Left 8 rib fracture. History of plastic surgery Multiple surgeries of the face and scalp including resection of both basal and squamous cell carcinomas with reconstruction. History of tonsillectomy Family History Family History Father Lung cancer Social History Social History Social History: Surrogate medical decision maker: Ollie Schmitz, son. Code status: Full code. Smoking status: Never smoker Alcohol intake: current Alcohol use details: Former heavy drinker though he has been sober for over a year. Substance use: never Substance use type: does not use Do You Feel Safe in your Home?: No Lack of Transportation: No Lack of Food: Never True Current Housing: I Have Housing Concerned About Future Housing: No Difficulty Paying Gas/Electric Bills: No Difficulty Paying for Meds: No Currently Unemployed: No Education: High School Diploma/GED Difficulty w/ Childcare or Family Care: No Spiritual care concerns: No Meds Home Medications and Allergies Home Medications Medication Instructions Recorded Confirmed Type gabapentin 300 mg capsule 300 mg PO TID 06/19/20 11/17/23 History lisinopril 20 mg tablet 20 mg PO DAILY 06/19/20 11/17/23 History oxybutynin chloride 10 mg 10 mg PO DAILY 06/19/20 11/17/23 History tablet,extended release 24 hr tamsulosin 0
--- NOTE | 2023-11-17 18:35 | ECG_ITS ---
Measurements Intervals [place] Rate: 88 P: 69 PA: 225 QRS: 3 QRSD: 102 T: 74 QT: 348 QTc: 422 Interpretive Statements SINUS RHYTHM WITH FIRST DEGREE AV BLOCK SEPTAL INFARCT, AGE INDETERMINATE ABNORMAL ECG COMPARED TO ECG 03/27/2023 17:34:30 SINUS RHYTHM NOW PRESENT FIRST DEGREE AV BLOCK NOW PRESENT Electronically Signed On 11-18-2023 14:28:15 CDT by Alessandro Hugo M.D.
--- NOTE | 2023-11-17 18:48 | PC.NURSE ---
pt refusing lokelma, feels like he is going to vomit if he drinks water.
[2023-11-17 19:48] LABS: Fractional Inspired Oxygen 21 %; HCO3 VBG 16.7 mEq/l (24.0-30.0); PO2 VBG 71.1 mmHg (35.0-45.0)
[2023-11-17 19:50] LABS: pH VBG 7.423 (7.300-7.400)
[2023-11-17 19:51] LABS: Device ROOM AIR; PCO2 VBG 26.2 mmHg (42.0-48.0)
[2023-11-17] MEDS: SODIUM CHLORIDE 0.9% IV 1,000 ML 150 ML IV CONT (19:51)
[2023-11-17] MEDS: SODIUM ZIRCONIUM CYCLOSILICATE 10 GM POWD.PACK PO (19:52)
--- NOTE | 2023-11-17 19:56 | ADMGEN ---
This patient, Jorge A Schmitz, was admitted to Medical Room 248-01. Patient/family oriented to hospital policies and general routines including ID bracelet, bed and alarms, visiting hours, pain management, procedures, bathroom and other care routines, personal items, smoking policy, room service/diet, and visiting hours. Information on how to activate the Rapid Response Team has been discussed. Patient/Family are encouraged to report perceived risks to care and to ask questions if they do not understand what they are told or what they should do.
[2023-11-17] MEDS: HEPARIN SODIUM 5,000 UNITS/ML VIAL 5000 UNITS SUB-Q (19:58)
[2023-11-17 20:14] LABS: Anion Gap 15 mmol/L (4-12); Blood Urea Nitrogen 51 mg/dL (9-20); CRP 0.9 mg/dL (<1.0); Calcium 8.1 mg/dL (8.4-10.2); Carbon Dioxide 17 mmol/L (22-30); Chloride 103 mmol/L (98-107); Creatine Kinase 105 U/L (55-170); Estimated CRCL calculation 22 ml/min; Estimated Glomerular Filt Rate 20; Glucose 101 mg/dL (65-110); Magnesium 1.7 mg/dL (1.6-2.3); Phosphorus 4.6 mg/dL (2.5-4.5); Potassium 5.2 mmol/L (3.4-5.0); Sodium 135 mmol/L (137-145)
[2023-11-17 20:18] LABS: Complement C3 83 mg/dL (88-165)
[2023-11-17 20:42] LABS: Erythrocyte Sedimentation Rate 21 mm/hr (0-20)
[2023-11-17 21:16] LABS: Total Protein Urine Random 8 mg/dL; Ur Ttl Prot Creatinine Ratio 0.07 mg/mg (0-0.20)
[2023-11-17 21:29] LABS: Eosinophil Urine None Seen % (None Seen); Urine Eos QC 2nd Tech Confirmed
[2023-11-17 21:32] LABS: Potassium Urine Random 42.9 meq/L; Sodium Urine Random 58 meq/L
[2023-11-17] MEDS: amLODIPine BESYLATE 5 MG TABLET 10 MG PO (22:28)
[2023-11-17] MEDS: FOLIC ACID 1 MG TABLET PO (22:28)
[2023-11-17] MEDS: FERROUS SULFATE 325 MG TABLET DR BY MOUTH (22:28)
[2023-11-17] MEDS: TAMSULOSIN HCL 0.4 MG CAPSULE PO (22:28)
[2023-11-17] MEDS: ATORVASTATIN 20 MG TABLET PO (22:28)
[2023-11-18] VITALS (15 sets, daily range): BP systolic 123–150; BP diastolic 67–91; PULSE 63–97; RESP 12–20; TEMP 36.7–37.4; O2SAT 90–98
[2023-11-18] MEDS: HYDROmorphone HCL INJ (*CRX) 1 MG/ML SYR 0.5 MG IV PUSH ×3 (02:14→20:15)
[2023-11-18 05:38] LABS: Alanine Aminotransferase 19 U/L (6-50); Albumin Level 3.6 g/dL (3.5-5.1); Alkaline Phosphatase 36 U/L (38-126); Anion Gap 11 mmol/L (4-12); Aspartate Amino Transferase 40 U/L (17-59); Bilirubin,Total 1.4 mg/dL (0.2-1.3); Blood Urea Nitrogen 44 mg/dL (9-20); Carbon Dioxide 20 mmol/L (22-30); Chloride 103 mmol/L (98-107); Estimated CRCL calculation 27 ml/min; Estimated Glomerular Filt Rate 26; Glucose 92 mg/dL (65-110); Potassium 4.1 mmol/L (3.4-5.0); Sodium 134 mmol/L (137-145)
[2023-11-18] MEDS: SODIUM CHLORIDE 0.9% IV 1,000 ML 80 ML IV CONT ×2 (06:37→20:14)
[2023-11-18 07:08] LABS: Basophils Absolute Auto 0.1 K/mm3 (0.0-0.1); Basophils Percent Auto 0.7 % (0.2-1.2); Eosinophils Absolute Auto 0.2 K/mm3 (0-0.3); Eosinophils Percent Auto 2.8 % (0-4.4); Hematocrit 40.1 % (42.0-52.0); Hemoglobin 13.2 g/dL (14.0-18.0); Immature Granulocyte Absolute 0.09 K/mm3 (0.00-0.031); Immature Granulocyte Percent A 1.2 % (0-0.5); Lymphocytes Absolute Auto 1.06 K/mm3 (0.9-3.2); Lymphocytes Percent Auto 14.6 % (18.3-44.2); Mean Corpuscular HGB Conc 32.9 g/dl (32-36); Mean Corpuscular Hemoglobin 30.7 pg (26-34); Mean Corpuscular Volume 93.3 fl (80-100); Mean Platelet Volume 9.6 fl (7.4-10.4); Monocytes Absolute Auto 1.2 K/mm3 (0.1-0.6); Monocytes Percent Auto 16.9 % (2.6-8.5); Neutrophils Absolute Auto 4.6 K/mm3 (1.3-6.7); Neutrophils Percent Auto 63.8 % (45.5-73.1); Platelet Count Result 198 k/mm3 (150-375); Red Cell Distribution Width 15.6 % (11.5-14.5); White Blood Count 7.2 K/mm3 (4.5-10.0)
--- NOTE | 2023-11-18 07:51 | PM.IMPN ---
Progress Note: A&P Assessment and Plan (1) Dehydration: Code(s): E86.0 - Dehydration Status: Acute (2) Electrolyte abnormality: Code(s): E87.8 - Other disorders of electrolyte and fluid balance, not elsewhere classified Status: Acute (3) Metabolic acidosis: Code(s): E87.20 - Acidosis, unspecified Status: Acute (4) Acute kidney injury: Code(s): N17.9 - Acute kidney failure, unspecified Status: Acute (5) Hypothyroidism: Code(s): E03.9 - Hypothyroidism, unspecified Status: Acute (6) Vomiting: Code(s): R11.10 - Vomiting, unspecified Status: Acute (7) Acute hyperkalemia: Code(s): E87.5 - Hyperkalemia Status: Acute (8) Intractable nausea and vomiting: Code(s): R11.2 - Nausea with vomiting, unspecified Status: Acute Plan Intractable vomiting CT with no acute findings showing diverticulosis GI consulted COVID/Influenza pending PPI IV fluids clear liquid diet Normal WBC Lipase WNL Acute Kidney injury secondary to dehydration and vomiting CR 3.9 POA improving with fluids IV fluids avoid nephrotoxins Nephrology consulted osmo's pending HX BPH monitor I&O's Hold his lisinopril and statin Renal US pending BPH Monitor output resume flomax HTN stable resumed home medication amlodapine held lisinopril with HAI BP per unit protocol Code status: Full code per patient DVT prophylaxis: Heparin Stress ulcer prophylaxis: Protonix 40 daily PT/OT notes: Ambulatory Disposition: Patient continues admission to the medical unit for further treatment and evaluation of idiopathic vomiting and HAI with consult to GI and nephrology. Time Spent With Patient Time with patient: 15 - 25 minutes Subjective Date/time seen: 11/18/23 07:51 Interval history: Admission: This is a very pleasant 68-year-old male with hypertension, dyslipidemia, hypothyroidism, gastroesophageal reflux disease, prostate cancer status post radiation, pancreatitis with pancreatic insufficiency, and other comorbidities who presented to the emergency department via EMS from home for evaluation of vomiting and left flank pain. The patient provides the following history. He has not been feeling well for several days and estimates he has vomited at least 20 times a day the last 3 days. He is now having left-sided flank pain which he thinks may be related to vomiting so much. The symptoms are somewhat similar to when he had pancreatitis many years ago. He denies fever, chills, sweats, chest pain, shortness of breath, hematemesis, melena, and hematochezia. In the ED: He was afebrile on arrival with stable blood pressures. Labs were significant for a WBC count of 12.4, hemoglobin 16.7, hematocrit 51.1%, platelets 306, sodium 132, potassium 5.7, chloride 94, carbon dioxide 13, anion gap 25, BUN 50, creatinine 3.90, total protein 9.0. Urine demonstrated 1+ ketones. CT of the abdomen and pelvis was without acute findings. Chest x-ray was normal. He was given 3 L normal saline bolus and Lokelma and is being admitted in this setting for further treatment and evaluation. With further questioning he endorses occasional issues starting his stream, nocturia, urinary frequency, and occasional sensations of incomplete bladder evacuation. He has noticed that his urine is a bit darker the last couple of days. He has not necessarily noticed a decrease in urine output however. He has not been started on any new medications recently and denies NSAID use. 4/3: Patient reported improvement to vomiting, no vomiting overnight but still nauseous, GI consulted my do EGD tomorrow. Renal function improving with fluids likely secondary to dehydration renal US pending. Review of Systems Review of Systems: All systems reviewed & are unremarkable except as noted in HPI and below Exam Narrative: Physical Exam: GENERAL: Alert and
[2023-11-18] MEDS: SUCRALFATE 1 GM TABLET PO ×3 (08:59→17:35)
[2023-11-18] MEDS: LIPASE/AMYLASE/PROTEASE 12,000 UNITS CAP 6 CAP PO ×3 (09:00→17:34)
[2023-11-18] MEDS: METOPROLOL SUCCINATE EXT REL 50 MG TABCR PO (09:00)
[2023-11-18] MEDS: THIAMINE HCL 100 MG TABLET PO (09:00)
[2023-11-18] MEDS: GABAPENTIN 300 MG CAPSULE PO ×3 (09:00→17:35)
[2023-11-18] MEDS: PANTOPRAZOLE SODIUM IV 40 MG VIAL IV PUSH (09:01)
[2023-11-18] MEDS: HEPARIN SODIUM 5,000 UNITS/ML VIAL 5000 UNITS SUB-Q ×2 (09:01→20:12)
--- NOTE | 2023-11-18 10:44 | WPDGICN ---
Assessment and Plan Assessment and plan (1) Intractable nausea and vomiting: Code(s): R11.2 - Nausea with vomiting, unspecified Status: Acute Assessment and Plan: doing better today. can consider EGD pending clinical course. will continue Pantoprazole 40 mg IV push carafate 1 gm TID (2) Gastroesophageal reflux disease: Code(s): K21.9 - Gastro-esophageal reflux disease without esophagitis Status: Acute Assessment and Plan: pt has known hx of gastritis, can consider EGD tomorrow (3) Abdominal pain: Code(s): R10.9 - Unspecified abdominal pain Status: Acute Assessment and Plan: (4) Acute kidney injury: Code(s): N17.9 - Acute kidney failure, unspecified Status: Acute (5) Metabolic acidosis: Code(s): E87.20 - Acidosis, unspecified Status: Acute (6) Electrolyte abnormality: Code(s): E87.8 - Other disorders of electrolyte and fluid balance, not elsewhere classified Status: Acute (7) Dehydration: Code(s): E86.0 - Dehydration Status: Acute (8) Hypertension: Code(s): I10 - Essential (primary) hypertension Status: Acute (9) Hyperlipidemia: Code(s): E78.5 - Hyperlipidemia, unspecified Status: Acute (10) Hypothyroidism: Code(s): E03.9 - Hypothyroidism, unspecified Status: Acute GI Consult Note Consult date/time: 11/18/23 10:44 Reason for consult: Vomiting HPI: Jorge A Schmitz is a 68 year old male with hx of CKD stage 3, hypertension, dyslipidemia, hypothyroidism, prostate cancer status post radiation, pancreatitis with pancreatic insufficiency, history of colon polyps, and GERD who was admitted to [facility] for intractable vomiting. pt reports on he had noticed some intermittent left quadrant abdominal pain that only lasted for few minutes, pain radiates to his back. States he was also having cramping in his hands so he believes it just to be muscle cramping. Aside from that he was eating well and feeling fine until Thursday. On Thursday,overall did not feel well and had little appetite. Symptoms progressively got worse on by Thursday evening when he started vomiting. He describes the vomit as dark bile and this prompted him to follow up in ER. Labs on Admission, K+ 5.7, Na 132, 132, Anion Gap 25, Creatinine 3.9, bun 50. WBC 12.4, lipase WNLs at 45. CT of A/P wo contrast: No urinary tract calculus or hydroureteronephrosis, Diverticulosis of the colon; no evidence of diverticulitis, Small sliding hiatal hernia, Extensive atherosclerosis. -patient does report known history of gastritis maintain with pantoprazole 40 mg daily. Six months ago he was started on Carafate 1 pill before meals but does admit to not taking this. He diagnosed with pancreatic insufficiency and takes creon for this. he denies any significant diarrhea, black or bloody stools. He had colonoscopy 2 years ago after his diagnosis of prostate cancer, multiple polyps were found on exam and has been getting colonoscopies every 6 months for this. His last EGD/colonoscopy was a year ago in [place]. States he was established with a GI physician at [facility] in [place] but there office is closing and is in the process of transferring to [facility] department. Review of Systems Review of Systems: All systems reviewed & are unremarkable except as noted in HPI and below Constitutional: Constitutional: Reports as per HPI Eyes: Eyes: Reports as per HPI ENT: Denies dysphagia Cardiovascular: Cardiovascular: Reports no additional cardiovascular complaints Respiratory: Respiratory: Reports no additional respiratory complaints Gastrointestinal: Gastrointestinal: Reports as per HPI Genitourinary: Genitourinary: Reports no additional male genitourinary complaints Musculoskeletal: Musculoskeletal: Reports as per HPI Integumentary/Breasts: Skin/Breas
--- NOTE | 2023-11-18 14:23 | PM.CNNEP ---
Assessment and Plan Assessment and plan (1) Acute kidney injury: Code(s): N17.9 - Acute kidney failure, unspecified Status: Acute Assessment and Plan: improvement already noted since admission normal creatinine at baseline [but patient reports he was hold he had CKD(?)] evaluation to date noted: renal ultrasound pending admission CT of abd/pelvis without any acute pathology urine electrolytes are prerenal urine eosinophils negative CPK normal suspect insult multifactorial: prerenal (poor oral intake + nausea/vomiting) ongoing ABHILASH-I use prior to admission BPH/urinary retention (although not evidence of this on admission imaging) agree with continuing IVFs follow trend of repeat labs and UOP (2) Intractable nausea and vomiting: Code(s): R11.2 - Nausea with vomiting, unspecified Status: Acute Assessment and Plan: clinically better today on PPI and PRN IV antiemetics as well as carafate GIrecommendations noted (3) Metabolic acidosis: Code(s): E87.20 - Acidosis, unspecified Status: Acute Assessment and Plan: correcting/resolving likely due to #1 (4) Hypertension: Code(s): I10 - Essential (primary) hypertension Status: Chronic Assessment and Plan: ABHILASH-I on hold due to #1 reasonable control at this time follow trend of hemodybnanics I will continue follow the patient with you while he remains hospitalized and make further recommendations as deemed necessary. Thank you for allowing me to participate in the care of this patient. History of Present Illness Reason for Consult Consult date: 11/18/23 Reason for consult: acute renal failure Chief Complaint Chief complaint: Vomiting,Abdominal Pain,HAI,Hyperkalemia History of Present Illness Narrative: The patient is a 68-year-old male with a past medical history as outlined below who presented to [facility] Emergency Room via EMS for further evaluation of vomiting and left flank pain. The patient reports that he has not been feeling well for the last several days if not longer and reports that he has vomited at least 20 times day for the last 3 or 4 days. Associated with the vomiting is left-sided flank pain but he seems to think that the recurrent bouts of vomiting are more the cause of this symptom than anything else. The symptoms are somewhat similar to when he previously had pancreatitis and was concerned that this may be the case again. He denies any fevers, chills, diaphoresis, chest pain, shortness of breath, him at emesis, melena, or hematochezia. Given the persistence of the symptoms the last few days, he presented to the emergency room for further assessment. Workup and evaluation emergency room demonstrated the patient be hemodynamically stable and afebrile. Routine blood test demonstrated a mildly the elevated white blood cell count of 12.4 in association with an elevated hemoglobin of 16.7 and normal platelet count. His chemistry showed a mildly elevated potassium level and evidence of acute kidney injury/acute renal failure with a BUN of 50 and a creatinine of 3.9 mg/dL. CT scan of the abdomen pelvis demonstrated no acute intra-abdominal findings. His chest x-ray was normal as well and given the history as mentioned above, he received aggressive IV fluid hydration and a 1 time dose of Lokelma for his mildly elevated potassium level. He was subsequent continue on IV fluids and admitted to the hospital for further evaluation and therapy. Renal consultation was requested due to his acute kidney injury/acute renal failure. From review his records, it would seem that his renal function is normally well within normal limits at least by previous testing done here in the [facility] system. He does report to me though that he saw a chili powder mixer a few years ago who told him that he had chronic kidney disease but was not that severe but to recomme
[2023-11-18 18:25] LABS: Influenza A QL RT-PCR Negative (Negative); Influenza B QL RT-PCR Negative (Negative); RSV RNA, RT-PCR Negative (Negative); SARS-CoV-2 RNA PCR Negative (Negative)
[2023-11-18] MEDS: amLODIPine BESYLATE 5 MG TABLET 10 MG PO (20:08)
[2023-11-18] MEDS: FERROUS SULFATE 325 MG TABLET DR BY MOUTH (20:08)
[2023-11-18] MEDS: TAMSULOSIN HCL 0.4 MG CAPSULE PO (20:08)
[2023-11-18] MEDS: FOLIC ACID 1 MG TABLET PO (20:08)
[2023-11-19] VITALS (13 sets, daily range): BP systolic 111–147; BP diastolic 66–76; PULSE 65–101; RESP 18–20; TEMP 36.5–37.7; O2SAT 92–98
[2023-11-19] MEDS: HYDROmorphone HCL INJ (*CRX) 1 MG/ML SYR 0.5 MG IV PUSH ×3 (01:53→17:10)
[2023-11-19 05:23] LABS: Basophils Absolute Auto 0.1 K/mm3 (0.0-0.1); Basophils Percent Auto 0.8 % (0.2-1.2); Eosinophils Absolute Auto 0.2 K/mm3 (0-0.3); Eosinophils Percent Auto 3.9 % (0-4.4); Hematocrit 41.2 % (42.0-52.0); Immature Granulocyte Absolute 0.06 K/mm3 (0.00-0.031); Lymphocytes Absolute Auto 0.74 K/mm3 (0.9-3.2); Lymphocytes Percent Auto 12.1 % (18.3-44.2); Mean Corpuscular HGB Conc 31.6 g/dl (32-36); Mean Corpuscular Hemoglobin 30.4 pg (26-34); Mean Corpuscular Volume 96.5 fl (80-100); Mean Platelet Volume 9.7 fl (7.4-10.4); Monocytes Percent Auto 15.9 % (2.6-8.5); Neutrophils Percent Auto 66.3 % (45.5-73.1); Platelet Count Result 174 k/mm3 (150-375); Red Blood Count 4.27 M/mm3 (4.6-6.20); Red Cell Distribution Width 15.2 % (11.5-14.5); White Blood Count 6.1 K/mm3 (4.5-10.0)
[2023-11-19 05:40] LABS: Alanine Aminotransferase 22 U/L (6-50); Albumin Level 3.9 g/dL (3.5-5.1); Alkaline Phosphatase 38 U/L (38-126); Anion Gap 7 mmol/L (4-12); Aspartate Amino Transferase 38 U/L (17-59); Bilirubin,Total 1.4 mg/dL (0.2-1.3); Blood Urea Nitrogen 27 mg/dL (9-20); Calcium 8.9 mg/dL (8.4-10.2); Carbon Dioxide 24 mmol/L (22-30); Chloride 103 mmol/L (98-107); Estimated CRCL calculation 42 ml/min; Estimated Glomerular Filt Rate 43; Glucose 177 mg/dL (65-110); Potassium 4.2 mmol/L (3.4-5.0); Sodium 134 mmol/L (137-145)
[2023-11-19] MEDS: SODIUM CHLORIDE 0.9% IV 1,000 ML 80 ML IV CONT ×2 (09:00→20:24)
[2023-11-19] MEDS: SUCRALFATE 1 GM TABLET PO ×3 (09:44→17:10)
[2023-11-19] MEDS: METOPROLOL SUCCINATE EXT REL 50 MG TABCR PO (09:44)
[2023-11-19] MEDS: THIAMINE HCL 100 MG TABLET PO (09:44)
[2023-11-19] MEDS: GABAPENTIN 300 MG CAPSULE PO ×3 (09:44→17:10)
[2023-11-19] MEDS: LIPASE/AMYLASE/PROTEASE 12,000 UNITS CAP 6 CAP PO ×3 (09:44→17:10)
[2023-11-19] MEDS: HEPARIN SODIUM 5,000 UNITS/ML VIAL 5000 UNITS SUB-Q ×2 (09:45→20:24)
[2023-11-19] MEDS: PANTOPRAZOLE SODIUM IV 40 MG VIAL IV PUSH (09:54)
[2023-11-19] MEDS: ACETAMINOPHEN 325 MG TABLET 650 MG PO (12:31)
--- NOTE | 2023-11-19 13:07 | PM.IMPN ---
Progress Note: A&P Assessment and Plan (1) Dehydration: Code(s): E86.0 - Dehydration Status: Acute (2) Electrolyte abnormality: Code(s): E87.8 - Other disorders of electrolyte and fluid balance, not elsewhere classified Status: Acute (3) Metabolic acidosis: Code(s): E87.20 - Acidosis, unspecified Status: Acute (4) Acute kidney injury: Code(s): N17.9 - Acute kidney failure, unspecified Status: Acute (5) Hypothyroidism: Code(s): E03.9 - Hypothyroidism, unspecified Status: Acute (6) Vomiting: Code(s): R11.10 - Vomiting, unspecified Status: Acute (7) Acute hyperkalemia: Code(s): E87.5 - Hyperkalemia Status: Acute (8) Intractable nausea and vomiting: Code(s): R11.2 - Nausea with vomiting, unspecified Status: Acute Plan Intractable vomiting CT with no acute findings showing diverticulosis GI consulted COVID/Influenza negative IV fluids clear liquid diet advanced to general 4/4 Normal WBC Lipase WNL Acute Kidney injury secondary to dehydration and vomiting CR 3.9 POA improving with fluids 1.6 4/4 IV fluids avoid nephrotoxins Nephrology consulted osmo's pending HX BPH monitor I&O's Hold his lisinopril and statin Renal US showed normal kidney function BPH Monitor output resume flomax HTN stable resumed home medication amlodapine held lisinopril with HAI BP per unit protocol RT wrist pain post fall 2V RT wrist pending Ice pack Code status: Full code per patient DVT prophylaxis: Heparin Stress ulcer prophylaxis: Protonix 40 daily PT/OT notes: Ambulatory Disposition: Patient continues admission to the medical unit for further treatment and evaluation of idiopathic vomiting and HAI with consult to GI and nephrology. Time Spent With Patient Time with patient: 15 - 25 minutes Subjective Date/time seen: 11/19/23 13:07 Interval history: Admission: This is a very pleasant 68-year-old male with hypertension, dyslipidemia, hypothyroidism, gastroesophageal reflux disease, prostate cancer status post radiation, pancreatitis with pancreatic insufficiency, and other comorbidities who presented to the emergency department via EMS from home for evaluation of vomiting and left flank pain. The patient provides the following history. He has not been feeling well for several days and estimates he has vomited at least 20 times a day the last 3 days. He is now having left-sided flank pain which he thinks may be related to vomiting so much. The symptoms are somewhat similar to when he had pancreatitis many years ago. He denies fever, chills, sweats, chest pain, shortness of breath, hematemesis, melena, and hematochezia. In the ED: He was afebrile on arrival with stable blood pressures. Labs were significant for a WBC count of 12.4, hemoglobin 16.7, hematocrit 51.1%, platelets 306, sodium 132, potassium 5.7, chloride 94, carbon dioxide 13, anion gap 25, BUN 50, creatinine 3.90, total protein 9.0. Urine demonstrated 1+ ketones. CT of the abdomen and pelvis was without acute findings. Chest x-ray was normal. He was given 3 L normal saline bolus and Lokelma and is being admitted in this setting for further treatment and evaluation. With further questioning he endorses occasional issues starting his stream, nocturia, urinary frequency, and occasional sensations of incomplete bladder evacuation. He has noticed that his urine is a bit darker the last couple of days. He has not necessarily noticed a decrease in urine output however. He has not been started on any new medications recently and denies NSAID use. 4/3: Patient reported improvement to vomiting, no vomiting overnight but still nauseous, GI consulted my do EGD tomorrow. Renal function improving with fluids likely secondary to dehydration renal US pending. 11/18: Patient reported RT wrist pain and swelling states he fell prior to
--- NOTE | 2023-11-19 13:19 | P.PNNP_ITS ---
Progress Note: A&P Assessment and Plan (1) Acute kidney injury: Code(s): N17.9 - Acute kidney failure, unspecified Status: Acute Assessment and Plan: * ongoing improvement noted * normal creatinine at baseline [but patient reports he was hold he had CKD(?)] * evaluation to date noted: * renal ultrasound pending * admission CT of abd/pelvis without any acute pathology * urine electrolytes are prerenal * urine eosinophils negative * CPK normal * suspect insult multifactorial: * prerenal (poor oral intake + nausea/vomiting) * ongoing ABHILASH-I use prior to admission * BPH/urinary retention (although not evidence of this on admission imaging) * remains on IVFs * follow trend of repeat labs and UOP (2) Intractable nausea and vomiting: Code(s): R11.2 - Nausea with vomiting, unspecified Status: Acute Assessment and Plan: * clinically better today * on PPI and PRN IV antiemetics as well as carafate * GIrecommendations noted (3) Metabolic acidosis: Code(s): E87.20 - Acidosis, unspecified Status: Acute Assessment and Plan: * correcting/resolving * likely due to #1 (4) Hypertension: Code(s): I10 - Essential (primary) hypertension Status: Chronic Assessment and Plan: * ABHILASH-I on hold due to #1 * reasonable control at this time * follow trend of hemodybnanics Will continue to follow. Subjective Date/time seen: 11/19/23 13:19 Interval history: Follow-up for acute kidney injury/acute renal failure. No further nausea or vomiting at this time and appears to be tolerating diet with slow advancement noted; only major complaint is that of weakness and right wrist pain (apparently fell on this area prior to admission); renal function continue to improve with current therapy/interventions. Exam Narrative: General: WD/WN male in NAD Heart: normal S1 and S2; no rub Lungs: clear to auscultation Abdomen: soft, nontender, nondistended, positive bowel sounds Extremities: no cyanosis or clubbing; no edema Skin: warm and dry Objective Data Vital Signs Vital Signs: Vital Signs Temp Pulse Resp BP Pulse Ox O2 Del Method 11/19/23 12:00 98.0 F 70 18 130/66 92 11/19/23 08:00 Room Air 11/19/23 08:00 76 11/19/23 10:58 101 H 111/67 11/19/23 10:54 91 128/76 11/19/23 10:50 82 131/69 11/19/23 09:44 84 11/19/23 08:00 98.2 F 72 18 132/68 92 11/19/23 04:00 99.8 F H 76 18 146/73 H 92 11/19/23 04:00 65 11/19/23 00:00 77 11/18/23 23:21 98.7 F 84 18 133/80 98 11/18/23 23:18 98.9 F 74 18 146/84 H 98 11/18/23 23:29 98.9 F 66 20 149/73 H 95 11/18/23 23:15 98.9 F 66 18 149/73 H 95 11/18/23 20:00 Room Air 11/18/23 20:00 69 11/18/23 20:00 99.0 F 64 16 139/67 93 11/18/23 16:00 65 11/18/23 16:00 98.3 F 63 12 123/91 H 93 Intake/Output Intake/Output: Intake & Output 11/16/23 11/17/23 11/18/23 11/19/23 23:59 23:59 23:59 23:59 Intake Total 3292.5 3685.3 810 Output Total 700 2250 700 Balance 2592.5 1435.3 110 Meds/Results
--- NOTE | 2023-11-19 13:19 | PM.PNNEP ---
Progress Note: A&P Assessment and Plan (1) Acute kidney injury: Code(s): N17.9 - Acute kidney failure, unspecified Status: Acute Assessment and Plan: ongoing improvement noted normal creatinine at baseline [but patient reports he was hold he had CKD(?)] evaluation to date noted: renal ultrasound pending admission CT of abd/pelvis without any acute pathology urine electrolytes are prerenal urine eosinophils negative CPK normal suspect insult multifactorial: prerenal (poor oral intake + nausea/vomiting) ongoing ABHILASH-I use prior to admission BPH/urinary retention (although not evidence of this on admission imaging) remains on IVFs follow trend of repeat labs and UOP (2) Intractable nausea and vomiting: Code(s): R11.2 - Nausea with vomiting, unspecified Status: Acute Assessment and Plan: clinically better today on PPI and PRN IV antiemetics as well as carafate GIrecommendations noted (3) Metabolic acidosis: Code(s): E87.20 - Acidosis, unspecified Status: Acute Assessment and Plan: correcting/resolving likely due to #1 (4) Hypertension: Code(s): I10 - Essential (primary) hypertension Status: Chronic Assessment and Plan: ABHILASH-I on hold due to #1 reasonable control at this time follow trend of hemodybnanics Will continue to follow. Subjective Date/time seen: 11/19/23 13:19 Interval history: Follow-up for acute kidney injury/acute renal failure. No further nausea or vomiting at this time and appears to be tolerating diet with slow advancement noted; only major complaint is that of weakness and right wrist pain (apparently fell on this area prior to admission); renal function continue to improve with current therapy/interventions. Exam Narrative: General: WD/WN male in NAD Heart: normal S1 and S2; no rub Lungs: clear to auscultation Abdomen: soft, nontender, nondistended, positive bowel sounds Extremities: no cyanosis or clubbing; no edema Skin: warm and dry Objective Data Vital Signs Vital Signs: Vital Signs Temp Pulse Resp BP Pulse Ox O2 Del Method 11/19/23 12:00 98.0 F 70 18 130/66 92 11/19/23 08:00 Room Air 11/19/23 08:00 76 11/19/23 10:58 101 H 111/67 11/19/23 10:54 91 128/76 11/19/23 10:50 82 131/69 11/19/23 09:44 84 11/19/23 08:00 98.2 F 72 18 132/68 92 11/19/23 04:00 99.8 F H 76 18 146/73 H 92 11/19/23 04:00 65 11/19/23 00:00 77 11/18/23 23:21 98.7 F 84 18 133/80 98 11/18/23 23:18 98.9 F 74 18 146/84 H 98 11/18/23 23:29 98.9 F 66 20 149/73 H 95 11/18/23 23:15 98.9 F 66 18 149/73 H 95 11/18/23 20:00 Room Air 11/18/23 20:00 69 11/18/23 20:00 99.0 F 64 16 139/67 93 11/18/23 16:00 65 11/18/23 16:00 98.3 F 63 12 123/91 H 93 Intake/Output Intake/Output: Intake & Output 11/16/23 11/17/23 11/18/23 11/19/23 23:59 23:59 23:59 23:59 Intake Total 3292.5 3685.3 810 Output Total 700 2250 700 Balance 2592.5 1435.3 110 Meds/Results Medications: Active Medications Generic Name Dose Route Start Last Admin Trade Name Jimq PRN Reason Stop Dose Admin Acetaminophen 650 mg 11/17/23 18:38 11/19/23 12:31 Acetaminophen 325 Mg Tablet PO 650 mg Q6H PRN Administration Mild Pain (1-3) or Fever Amlodipine Besylate 10 mg 11/17/23 22:05 11/18/23 20:08 Amlodipine Besylate 5 Mg Tablet PO 10 mg HS RIZWAN Administration Lipase/Protease/Amylase 6 cap 11/18/23 08:00 11/19/23 12:32 Lipase/Amylase/Protease 12,000 Units Cap PO 6 cap TIDWM RIZWAN Administration Ferrous Sulfate 325 mg 11/17/23 22:05 11/18/23 20:08 Ferrous Sulfate [address] BY MOUTH 325 mg HS RIZWAN Administration Folic Acid 1 mg 11/17/23 22:05 11/18/23 20:08 Folic Acid 1 Mg Tablet PO 1 mg HS RIZWAN Administration Gabap
--- NOTE | 2023-11-19 14:11 | PC.NURSE ---
On 11/19/23, the student, [Krystal Wray], provided care and completed [facility] documentation on this patient. I have reviewed the student's documentation and agree with the findings.
--- NOTE | 2023-11-19 17:51 | WPDGIPROGNO ---
Progress Note: A&P Assessment and Plan (1) Intractable nausea and vomiting: Code(s): R11.2 - Nausea with vomiting, unspecified Status: Acute Assessment and Plan: this is improved, some nausea but no more vomiting and he is eating renal function improved with fluids and medical support ? gastroenteritis but much better h/o GERD- will set up EGD as outpatient since he is feeling better (2) Dehydration: Code(s): E86.0 - Dehydration Status: Acute Assessment and Plan: resolved (3) Acute kidney injury: Code(s): N17.9 - Acute kidney failure, unspecified Status: Acute Assessment and Plan: improving (4) Abdominal pain: Code(s): R10.9 - Unspecified abdominal pain Status: Acute Assessment and Plan: better (5) Gastroesophageal reflux disease: Code(s): K21.9 - Gastro-esophageal reflux disease without esophagitis Status: Acute (6) Adenomatous colon polyp: Code(s): D12.6 - Benign neoplasm of colon, unspecified Status: Acute Assessment and Plan: he says that also due to have another colonoscopy, will set up with egd (outpatient) (7) Pancreatic insufficiency: Code(s): K86.89 - Other specified diseases of pancreas Status: Acute Subjective Date/time seen: 11/19/23 17:51 Interval history: overall much better, still nausea but now he is eating more Review of Systems Review of Systems: All systems reviewed & are unremarkable except as noted in HPI and below Exam Const: General: comfortable and no acute distress HENMT: Face/Nose/Sinus: Normal nares present Eyes: General: appearance normal, both eyes and all related structures Neck: Neck: no JVD Resp: Auscultation: clear to auscultation bilaterally Cardio: Rate: regular rate Rhythm: regular rhythm GI: Inspection: non-distended GI Palp: Yes Soft to palpation and No Tenderness to palpation present (GI) Auscultation: normal bowel sounds Skin: General skin exam: normal color Neuro: Speech: normal speech Motor exam (neuro): 5/5 motor strength present throughout Extrem: General: normal to inspection Psych: Mental Status: mental status grossly normal Objective Data Vital Signs Vital Signs: Vital Signs - 24 hr 11/18/23 20:00 11/18/23 20:00 11/18/23 20:00 Temperature 99.0 F Pulse Rate 64 69 Respiratory Rate 16 Blood Pressure 139/67 Pulse Oximetry 93 Oxygen Delivery Room Air 11/18/23 23:15 11/18/23 23:29 11/18/23 23:18 Temperature 98.9 F 98.9 F 98.9 F Pulse Rate 66 66 74 Respiratory Rate 18 20 18 Blood Pressure 149/73 H 149/73 H 146/84 H Pulse Oximetry 95 95 98 Oxygen Delivery 11/18/23 23:21 11/19/23 00:00 11/19/23 04:00 Temperature 98.7 F Pulse Rate 84 77 65 Respiratory Rate 18 Blood Pressure 133/80 Pulse Oximetry 98 Oxygen Delivery 11/19/23 04:00 11/19/23 08:00 11/19/23 09:44 Temperature 99.8 F H 98.2 F Pulse Rate 76 72 84 Respiratory Rate 18 18 Blood Pressure 146/73 H 132/68 Pulse Oximetry 92 92 Oxygen Delivery 11/19/23 10:50 11/19/23 10:54 11/19/23 10:58 Temperature Pulse Rate 82 91 101 H Respiratory Rate Blood Pressure 131/69 128/76 111/67 Pulse Oximetry Oxygen Delivery 11/19/23 08:00 11/19/23 08:00 11/19/23 12:00 Temperature 98.0 F Pulse Rate 76 70 Respiratory Rate 18 Blood Pressure 130/66 Pulse Oximetry 92 Oxygen Delivery Room Air 11/19/23 12:00 11/19/23 16:00 11/19/23 16:00 Temperature 97.7 F Pulse Rate 77 72 74 Respiratory Rate 18 Blood Pressure 132/72 Pulse Oximetry 93 Oxygen Delivery Intake/Output Intake/Output: Intake & Output 11/16/23 11/17/23 11/18/23 11/19/23 23:59 23:59 23:59 23:59 Intake Total 3292.5 3685.3 810 Output Total 700 2250 700 Balance 2592.5 1435.3 110 Meds/Results Medications: Active Medications Generic Name Dose Route Start Last Admin Trade Name Freq PRN Reason
[2023-11-19] MEDS: TAMSULOSIN HCL 0.4 MG CAPSULE PO (20:18)
[2023-11-19] MEDS: FOLIC ACID 1 MG TABLET PO (20:18)
[2023-11-19] MEDS: FERROUS SULFATE 325 MG TABLET DR BY MOUTH (20:18)
[2023-11-19] MEDS: amLODIPine BESYLATE 5 MG TABLET 10 MG PO (20:18)
[2023-11-20] VITALS (15 sets, daily range): BP systolic 143–174; BP diastolic 70–82; PULSE 76–95; RESP 16–18; TEMP 36.3–37.7; O2SAT 95–100
[2023-11-20 00:19] LABS: Hemoglobin A1C 4.8 % (<5.7)
[2023-11-20] MEDS: HYDROmorphone HCL INJ (*CRX) 1 MG/ML SYR 0.5 MG IV PUSH ×3 (02:00→20:51)
[2023-11-20 06:23] LABS: Hematocrit 38.5 % (42.0-52.0); Hemoglobin 12.4 g/dL (14.0-18.0); Mean Corpuscular HGB Conc 32.2 g/dl (32-36); Mean Corpuscular Hemoglobin 30.6 pg (26-34); Mean Corpuscular Volume 95.1 fl (80-100); Mean Platelet Volume 9.8 fl (7.4-10.4); Platelet Count Result 150 k/mm3 (150-375); Red Blood Count 4.05 M/mm3 (4.6-6.20); Red Cell Distribution Width 14.5 % (11.5-14.5); White Blood Count 5.5 K/mm3 (4.5-10.0)
[2023-11-20 06:45] LABS: Alanine Aminotransferase 25 U/L (6-50); Albumin Level 3.8 g/dL (3.5-5.1); Alkaline Phosphatase 40 U/L (38-126); Anion Gap 8 mmol/L (4-12); Aspartate Amino Transferase 41 U/L (17-59); Blood Urea Nitrogen 18 mg/dL (9-20); Calcium 8.8 mg/dL (8.4-10.2); Carbon Dioxide 22 mmol/L (22-30); Chloride 102 mmol/L (98-107); Estimated CRCL calculation 48 ml/min; Estimated Glomerular Filt Rate 51; Glucose 128 mg/dL (65-110); Potassium 4.2 mmol/L (3.4-5.0); Sodium 132 mmol/L (137-145)
[2023-11-20] MEDS: METOPROLOL SUCCINATE EXT REL 50 MG TABCR PO (08:57)
[2023-11-20] MEDS: GABAPENTIN 300 MG CAPSULE PO ×3 (08:57→17:27)
[2023-11-20] MEDS: LIPASE/AMYLASE/PROTEASE 12,000 UNITS CAP 6 CAP PO ×3 (08:58→16:50)
[2023-11-20] MEDS: THIAMINE HCL 100 MG TABLET PO (09:01)
[2023-11-20] MEDS: HEPARIN SODIUM 5,000 UNITS/ML VIAL 5000 UNITS SUB-Q ×2 (09:01→20:51)
[2023-11-20] MEDS: PANTOPRAZOLE SODIUM IV 40 MG VIAL IV PUSH (09:01)
--- NOTE | 2023-11-20 10:02 | P.PNNP_ITS ---
Progress Note: A&P Assessment and Plan (1) Acute kidney injury: Code(s): N17.9 - Acute kidney failure, unspecified Status: Acute Assessment and Plan: * ongoing improvement noted * normal creatinine at baseline [but patient reports he was hold he had CKD(?)] * evaluation to date noted: * renal ultrasound pending * admission CT of abd/pelvis without any acute pathology * urine electrolytes are prerenal * urine eosinophils negative * CPK normal * suspect insult multifactorial: * prerenal (poor oral intake + nausea/vomiting) * ongoing ABHILASH-I use prior to admission * BPH/urinary retention (although not evidence of this on admission imaging) * remains on IVFs * follow trend of repeat labs and UOP (2) Intractable nausea and vomiting: Code(s): R11.2 - Nausea with vomiting, unspecified Status: Acute Assessment and Plan: * clinically better today * on PPI and PRN IV antiemetics as well as carafate * GIrecommendations noted (3) Metabolic acidosis: Code(s): E87.20 - Acidosis, unspecified Status: Acute Assessment and Plan: * correcting/resolving * likely due to #1 (4) Hypertension: Code(s): I10 - Essential (primary) hypertension Status: Chronic Assessment and Plan: * ABHILASH-I on hold due to #1 * reasonable control at this time * follow trend of hemodybnanics Will continue to follow. Subjective Date/time seen: 11/20/23 10:02 Interval history: Follow-up for acute kidney injury/acute renal failure. He seems to be doing reasonably well at the time of my visit; no reported issues with nausea/vomiting; renal function continues to improve with current interventions/therapy albeit very slowly; eating and drinking okay; no apparent distress noted currently. Exam Narrative: General: WD/WN male in NAD Heart: normal S1 and S2; no rub Lungs: clear to auscultation Abdomen: soft, nontender, nondistended, positive bowel sounds Extremities: no cyanosis or clubbing; no edema Skin: warm and intact Objective Data Vital Signs Vital Signs: Vital Signs Temp Pulse Resp BP Pulse Ox O2 Del Method 11/20/23 09:22 Room Air 11/20/23 08:57 81 11/20/23 04:00 98.0 F 80 16 143/75 H 95 11/20/23 04:00 80 11/20/23 00:00 76 11/19/23 21:20 85 138/70 11/19/23 21:48 96 133/73 11/19/23 21:31 82 140/69 11/19/23 20:00 Room Air 11/19/23 20:00 82 11/19/23 20:00 98.1 F 82 20 147/74 H 98 11/19/23 16:00 74 11/19/23 16:00 97.7 F 72 18 132/72 93 11/19/23 12:00 77 11/19/23 12:00 98.0 F 70 18 130/66 92 Intake/Output Intake/Output: Intake & Output 11/17/23 11/18/23 11/19/23 11/20/23 23:59 23:59 23:59 23:59 Intake Total 3292.5 3685.3 3202 780 Output Total 700 2250 1825 1500 Balance 2592.5 1435.3 1377 -720 Meds/Results Medications: Active Medications Generic Name Dose Route Start Last Admin Trade Name Sonia PRN Reason Stop Dose Admin Acetaminophen 650 mg 11/17/23 18:38 11/19/23 12:31 Acetaminophen 325 Mg Tablet PO 650 mg
--- NOTE | 2023-11-20 10:02 | PM.PNNEP ---
Progress Note: A&P Assessment and Plan (1) Acute kidney injury: Code(s): N17.9 - Acute kidney failure, unspecified Status: Acute Assessment and Plan: ongoing improvement noted normal creatinine at baseline [but patient reports he was hold he had CKD(?)] evaluation to date noted: renal ultrasound pending admission CT of abd/pelvis without any acute pathology urine electrolytes are prerenal urine eosinophils negative CPK normal suspect insult multifactorial: prerenal (poor oral intake + nausea/vomiting) ongoing ABHILASH-I use prior to admission BPH/urinary retention (although not evidence of this on admission imaging) remains on IVFs follow trend of repeat labs and UOP (2) Intractable nausea and vomiting: Code(s): R11.2 - Nausea with vomiting, unspecified Status: Acute Assessment and Plan: clinically better today on PPI and PRN IV antiemetics as well as carafate GIrecommendations noted (3) Metabolic acidosis: Code(s): E87.20 - Acidosis, unspecified Status: Acute Assessment and Plan: correcting/resolving likely due to #1 (4) Hypertension: Code(s): I10 - Essential (primary) hypertension Status: Chronic Assessment and Plan: ABHILASH-I on hold due to #1 reasonable control at this time follow trend of hemodybnanics Will continue to follow. Subjective Date/time seen: 11/20/23 10:02 Interval history: Follow-up for acute kidney injury/acute renal failure. He seems to be doing reasonably well at the time of my visit; no reported issues with nausea/vomiting; renal function continues to improve with current interventions/therapy albeit very slowly; eating and drinking okay; no apparent distress noted currently. Exam Narrative: General: WD/WN male in NAD Heart: normal S1 and S2; no rub Lungs: clear to auscultation Abdomen: soft, nontender, nondistended, positive bowel sounds Extremities: no cyanosis or clubbing; no edema Skin: warm and intact Objective Data Vital Signs Vital Signs: Vital Signs Temp Pulse Resp BP Pulse Ox O2 Del Method 11/20/23 09:22 Room Air 11/20/23 08:57 81 11/20/23 04:00 98.0 F 80 16 143/75 H 95 11/20/23 04:00 80 11/20/23 00:00 76 11/19/23 21:20 85 138/70 11/19/23 21:48 96 133/73 11/19/23 21:31 82 140/69 11/19/23 20:00 Room Air 11/19/23 20:00 82 11/19/23 20:00 98.1 F 82 20 147/74 H 98 11/19/23 16:00 74 11/19/23 16:00 97.7 F 72 18 132/72 93 11/19/23 12:00 77 11/19/23 12:00 98.0 F 70 18 130/66 92 Intake/Output Intake/Output: Intake & Output 11/17/23 11/18/23 11/19/23 11/20/23 23:59 23:59 23:59 23:59 Intake Total 3292.5 3685.3 3202 780 Output Total 700 2250 1825 1500 Balance 2592.5 1435.3 1377 -720 Meds/Results Medications: Active Medications Generic Name Dose Route Start Last Admin Trade Name Freq PRN Reason Stop Dose Admin Acetaminophen 650 mg 11/17/23 18:38 11/19/23 12:31 Acetaminophen 325 Mg Tablet PO 650 mg Q6H PRN Administration Mild Pain (1-3) or Fever Amlodipine Besylate 10 mg 11/17/23 22:05 11/19/23 20:18 Amlodipine Besylate 5 Mg Tablet PO 10 mg HS RIZWAN Administration Lipase/Protease/Amylase 6 cap 11/18/23 08:00 11/20/23 08:58 Lipase/Amylase/Protease 12,000 Units Cap PO 6 cap TIDWM RIZWAN Administration Ferrous Sulfate 325 mg 11/17/23 22:05 11/19/23 20:18 Ferrous Sulfate [address] BY MOUTH 325 mg HS RIZWAN Administration Folic Acid 1 mg 11/17/23 22:05 11/19/23 20:18 Folic Acid 1 Mg Tablet PO 1 mg HS RIZWAN Administration Gabapentin 300 mg 11/18/23 09:00 11/20/23 08:57 Gabapentin 300 Mg Capsule PO 300 mg TID RIZWAN Administration Heparin Sodium (Porcine) 5,000 units 11/17/23 21:00 11/20/23 09:01 Heparin Sodium 5,000 Units/Ml Vial SUB-Q 5,000 units Q12HR S
[2023-11-20] MEDS: SUCRALFATE 1 GM TABLET PO ×2 (11:56→16:50)
[2023-11-20] MEDS: oxyCODONE HCL (*CRX) 5 MG TAB IR PO ×3 (13:11→21:50)
[2023-11-20] MEDS: SODIUM CHLORIDE 0.9% IV 1,000 ML 80 ML IV CONT (13:12)
--- NOTE | 2023-11-20 14:18 | PM.IMPN ---
Progress Note: A&P Assessment and Plan (1) Dehydration: Code(s): E86.0 - Dehydration Status: Acute (2) Electrolyte abnormality: Code(s): E87.8 - Other disorders of electrolyte and fluid balance, not elsewhere classified Status: Acute (3) Metabolic acidosis: Code(s): E87.20 - Acidosis, unspecified Status: Acute (4) Acute kidney injury: Code(s): N17.9 - Acute kidney failure, unspecified Status: Acute (5) Hypothyroidism: Code(s): E03.9 - Hypothyroidism, unspecified Status: Acute (6) Vomiting: Code(s): R11.10 - Vomiting, unspecified Status: Acute (7) Acute hyperkalemia: Code(s): E87.5 - Hyperkalemia Status: Acute (8) Intractable nausea and vomiting: Code(s): R11.2 - Nausea with vomiting, unspecified Status: Acute Plan Intractable vomiting CT with no acute findings showing diverticulosis GI consulted COVID/Influenza negative IV fluids clear liquid diet advanced to general 4/4 Normal WBC Lipase WNL Acute Kidney injury secondary to dehydration and vomiting-resolving CR 3.9 POA improving with fluids 1.6 4/4 IV fluids avoid nephrotoxins Nephrology consulted osmo's pending HX BPH monitor I&O's Hold his lisinopril and statin Renal US showed normal kidney function BPH Monitor output resume flomax HTN stable resumed home medication amlodapine held lisinopril with HAI BP per unit protocol RT wrist pain post fall 2V RT wrist no fractures Wrist splint Pain control Ice pack Code status: Full code per patient DVT prophylaxis: Heparin Stress ulcer prophylaxis: Protonix 40 daily PT/OT notes: Ambulatory Disposition: Patient continues admission to the medical unit for further treatment and evaluation of idiopathic vomiting and HAI with consult to GI and nephrology. Patient with severe weakness and difficulty ambulating possible rehab. Time Spent With Patient Time with patient: 15 - 25 minutes Subjective Date/time seen: 11/20/23 14:18 Interval history: Admission: This is a very pleasant 68-year-old male with hypertension, dyslipidemia, hypothyroidism, gastroesophageal reflux disease, prostate cancer status post radiation, pancreatitis with pancreatic insufficiency, and other comorbidities who presented to the emergency department via EMS from home for evaluation of vomiting and left flank pain. The patient provides the following history. He has not been feeling well for several days and estimates he has vomited at least 20 times a day the last 3 days. He is now having left-sided flank pain which he thinks may be related to vomiting so much. The symptoms are somewhat similar to when he had pancreatitis many years ago. He denies fever, chills, sweats, chest pain, shortness of breath, hematemesis, melena, and hematochezia. In the ED: He was afebrile on arrival with stable blood pressures. Labs were significant for a WBC count of 12.4, hemoglobin 16.7, hematocrit 51.1%, platelets 306, sodium 132, potassium 5.7, chloride 94, carbon dioxide 13, anion gap 25, BUN 50, creatinine 3.90, total protein 9.0. Urine demonstrated 1+ ketones. CT of the abdomen and pelvis was without acute findings. Chest x-ray was normal. He was given 3 L normal saline bolus and Lokelma and is being admitted in this setting for further treatment and evaluation. With further questioning he endorses occasional issues starting his stream, nocturia, urinary frequency, and occasional sensations of incomplete bladder evacuation. He has noticed that his urine is a bit darker the last couple of days. He has not necessarily noticed a decrease in urine output however. He has not been started on any new medications recently and denies NSAID use. /3: Patient reported improvement to vomiting, no vomiting overnight but still nauseous, GI consulted my do EGD tomorrow. Renal function improving with fluids likely secon
--- NOTE | 2023-11-20 16:43 | WPDGIPROGNO ---
Progress Note: A&P Assessment and Plan (1) Intractable nausea and vomiting: Code(s): R11.2 - Nausea with vomiting, unspecified Status: Acute Assessment and Plan: this is improved, some nausea but no more vomiting and he is eating renal function is improving ? gastroenteritis but much better h/o GERD- will set up EGD as outpatient since he is feeling better (2) Dehydration: Code(s): E86.0 - Dehydration Status: Acute Assessment and Plan: resolved (3) Acute kidney injury: Code(s): N17.9 - Acute kidney failure, unspecified Status: Acute Assessment and Plan: improving (4) Abdominal pain: Code(s): R10.9 - Unspecified abdominal pain Status: Acute Assessment and Plan: better (5) Gastroesophageal reflux disease: Code(s): K21.9 - Gastro-esophageal reflux disease without esophagitis Status: Acute (6) Adenomatous colon polyp: Code(s): D12.6 - Benign neoplasm of colon, unspecified Status: Acute Assessment and Plan: he says that also due to have another colonoscopy, will set up with egd (outpatient) (7) Pancreatic insufficiency: Code(s): K86.89 - Other specified diseases of pancreas Status: Acute Assessment and Plan: on creon at home Subjective Date/time seen: 11/20/23 16:43 Interval history: still some nausea but better he has generalized weakness. He says that months ago had similar problem after he underwent XRT for his prostate cancer Review of Systems Review of Systems: All systems reviewed & are unremarkable except as noted in HPI and below Exam Const: General: comfortable and no acute distress HENMT: Face/Nose/Sinus: Normal nares present Eyes: General: appearance normal, both eyes and all related structures Neck: Neck: no JVD Resp: Auscultation: clear to auscultation bilaterally Cardio: Rate: regular rate Rhythm: regular rhythm GI: Inspection: non-distended GI Palp: Yes Soft to palpation and No Tenderness to palpation present (GI) Auscultation: normal bowel sounds Skin: General skin exam: normal color Neuro: Speech: normal speech Motor exam (neuro): 5/5 motor strength present throughout Extrem: General: normal to inspection Psych: Mental Status: mental status grossly normal Objective Data Vital Signs Vital Signs: Vital Signs - 24 hr 11/19/23 20:00 11/19/23 20:00 11/19/23 20:00 Temperature 98.1 F Pulse Rate 82 82 Respiratory Rate 20 Blood Pressure 147/74 H Pulse Oximetry 98 Oxygen Delivery Room Air 11/19/23 21:31 11/19/23 21:48 11/19/23 21:20 Temperature Pulse Rate 82 96 85 Respiratory Rate Blood Pressure 140/69 133/73 138/70 Pulse Oximetry Oxygen Delivery 11/20/23 00:00 11/20/23 04:00 11/20/23 04:00 Temperature 98.0 F Pulse Rate 76 80 80 Respiratory Rate 16 Blood Pressure 143/75 H Pulse Oximetry 95 Oxygen Delivery 11/20/23 08:57 11/20/23 09:22 11/20/23 08:00 Temperature Pulse Rate 81 85 Respiratory Rate Blood Pressure Pulse Oximetry Oxygen Delivery Room Air 11/20/23 12:00 11/20/23 12:47 11/20/23 08:54 Temperature 98.5 F Pulse Rate 87 84 Respiratory Rate 18 Blood Pressure 149/74 H Pulse Oximetry 99 Oxygen Delivery Room Air 11/20/23 16:00 Temperature Pulse Rate 82 Respiratory Rate Blood Pressure Pulse Oximetry Oxygen Delivery Intake/Output Intake/Output: Intake & Output 11/17/23 11/18/23 11/19/23 11/20/23 23:59 23:59 23:59 23:59 Intake Total 3292.5 3685.3 3202 2200 Output Total 700 2250 1825 2150 Balance 2592.5 1435.3 1377 50 Meds/Results Medications: Active Medications Generic Name Dose Route Start Last Admin Trade Name Freq PRN Reason Stop Dose Admin Amlodipine Besylate 10 mg 11/17/23 22:05 11/19/23 20:18 Amlodipine Besylate 5 Mg Tablet PO 10 mg HS RIZWAN Administration Lipase/Protease/Amylase 6 cap 11/18/23
[2023-11-20] MEDS: FOLIC ACID 1 MG TABLET PO (20:52)
[2023-11-20] MEDS: FERROUS SULFATE 325 MG TABLET DR BY MOUTH (20:52)
[2023-11-20] MEDS: TAMSULOSIN HCL 0.4 MG CAPSULE PO (20:52)
[2023-11-20] MEDS: amLODIPine BESYLATE 5 MG TABLET 10 MG PO (20:52)
[2023-11-20 21:48] LABS: Osmolality, Urine 501 mOsm/kg (50-1200)
[2023-11-21] VITALS (14 sets, daily range): BP systolic 126–170; BP diastolic 65–84; PULSE 74–96; RESP 18; TEMP 36.6–38.2; O2SAT 94–98
[2023-11-21] MEDS: HYDROmorphone HCL INJ (*CRX) 1 MG/ML SYR 0.5 MG IV PUSH (02:48)
[2023-11-21] MEDS: SODIUM CHLORIDE 0.9% IV 1,000 ML 80 ML IV CONT (02:49)
[2023-11-21] MEDS: oxyCODONE HCL (*CRX) 5 MG TAB IR PO ×4 (03:53→21:22)
[2023-11-21 04:45] LABS: Hematocrit 36.9 % (42.0-52.0); Hemoglobin 12.2 g/dL (14.0-18.0); Mean Corpuscular HGB Conc 33.1 g/dl (32-36); Mean Corpuscular Volume 93.9 fl (80-100); Mean Platelet Volume 9.6 fl (7.4-10.4); Platelet Count Result 159 k/mm3 (150-375); Red Blood Count 3.93 M/mm3 (4.6-6.20); White Blood Count 6.7 K/mm3 (4.5-10.0)
[2023-11-21 05:04] LABS: Alanine Aminotransferase 24 U/L (6-50); Albumin Level 3.8 g/dL (3.5-5.1); Alkaline Phosphatase 41 U/L (38-126); Anion Gap 5 mmol/L (4-12); Aspartate Amino Transferase 27 U/L (17-59); Blood Urea Nitrogen 16 mg/dL (9-20); Calcium 8.6 mg/dL (8.4-10.2); Carbon Dioxide 24 mmol/L (22-30); Chloride 101 mmol/L (98-107); Estimated CRCL calculation 52 ml/min; Estimated Glomerular Filt Rate 55; Glucose 132 mg/dL (65-110); Potassium 4.2 mmol/L (3.4-5.0); Sodium 130 mmol/L (137-145)
[2023-11-21] MEDS: LIPASE/AMYLASE/PROTEASE 12,000 UNITS CAP 6 CAP PO ×3 (08:39→17:00)
[2023-11-21] MEDS: THIAMINE HCL 100 MG TABLET PO (08:40)
[2023-11-21] MEDS: SUCRALFATE 1 GM TABLET PO ×3 (08:40→17:01)
[2023-11-21] MEDS: GABAPENTIN 300 MG CAPSULE PO ×3 (08:40→16:56)
[2023-11-21] MEDS: METOPROLOL SUCCINATE EXT REL 50 MG TABCR PO (08:41)
[2023-11-21] MEDS: HEPARIN SODIUM 5,000 UNITS/ML VIAL 5000 UNITS SUB-Q ×2 (08:42→21:22)
--- NOTE | 2023-11-21 08:47 | P.PNNP_ITS ---
Progress Note: A&P Assessment and Plan (1) Acute kidney injury: Code(s): N17.9 - Acute kidney failure, unspecified Status: Acute Assessment and Plan: * ongoing improvement noted * normal creatinine in March 2023. * he saw a diamond expert 8 months ago who said to watch the protein and drink a lot of fluid. not sure what his creatinine was to send him to nephrology then. * evaluation to date noted: * renal ultrasound unremarkable * admission CT of abd/pelvis without any acute pathology * urine electrolytes are prerenal * urine eosinophils negative * CPK normal * suspect insult multifactorial: * prerenal (poor oral intake + nausea/vomiting) * ongoing ABHILASH-I use prior to admission * BPH/urinary retention (although not evidence of this on admission imaging) * remains on NS at 80. * eating a bit but not very enthusiastically. * creatinine down to 1.3. (2) Intractable nausea and vomiting: Code(s): R11.2 - Nausea with vomiting, unspecified Status: Acute Assessment and Plan: * clinically better today * on PPI and PRN IV antiemetics as well as carafate * GI on the case. (3) Metabolic acidosis: Code(s): E87.20 - Acidosis, unspecified Status: Acute Assessment and Plan: * resolved. (4) Hypertension: Code(s): I10 - Essential (primary) hypertension Status: Chronic Assessment and Plan: * ABHILASH-I on hold due to #1 * BP 120 to 170. * on metoprolol 50 daily * will restart low dose lisinopril with his bps in the 170s at times. Will continue to follow. Subjective Date/time seen: 11/21/23 08:47 Interval history: alert. eating some breakfast. less nauseated he says. Exam Narrative: General: WD/WN male in NAD Heart: normal S1 and S2; no rub or gallop Lungs: clear to auscultation Abdomen: soft, nontender, nondistended, positive bowel sounds Extremities: no cyanosis or clubbing; no edema Skin: warm and intact without rash Objective Data Vital Signs Vital Signs: Vital Signs - 24 hr 11/20/23 08:57 11/20/23 09:22 11/20/23 12:00 Temperature Pulse Rate 81 87 Respiratory Rate Blood Pressure Pulse Oximetry Oxygen Delivery Room Air 11/20/23 12:47 11/20/23 08:54 11/20/23 16:00 Temperature 98.5 F Pulse Rate 84 82 Respiratory Rate 18 Blood Pressure 149/74 H Pulse Oximetry 99 Oxygen Delivery Room Air 11/20/23 16:32 11/20/23 16:32 11/20/23 16:37 Temperature 97.4 F L 97.4 F L Pulse Rate 84 84 91 Respiratory Rate 18 18 Blood Pressure 155/74 H 155/74 H 156/80 H Pulse Oximetry 98 98 98 Oxygen Delivery 11/20/23 16:40 11/20/23 19:35 11/20/23 19:36 Temperature 99.8 F H 98.7 F Pulse Rate 95 89 87 Respiratory Rate 18 18 Blood Pressure 148/82 H 174/71 H 164/70 H Pulse Oximetry 99 97 97 Oxygen Delivery 11/20/23 19:40 11/20/23 20:00 11/20/23 20:00 Temperature 99.2 F 99.8 F H Pulse Rate 88 87 Respiratory Rate 18 18 Blood Pressure 172/75 H 174/71 H Pulse Oximetry 100 97 Oxygen Delivery [place]
--- NOTE | 2023-11-21 08:47 | PM.PNNEP ---
Progress Note: A&P Assessment and Plan (1) Acute kidney injury: Code(s): N17.9 - Acute kidney failure, unspecified Status: Acute Assessment and Plan: ongoing improvement noted normal creatinine in March 2023. he saw a religion department chair 8 months ago who said to watch the protein and drink a lot of fluid. not sure what his creatinine was to send him to nephrology then. evaluation to date noted: renal ultrasound unremarkable admission CT of abd/pelvis without any acute pathology urine electrolytes are prerenal urine eosinophils negative CPK normal suspect insult multifactorial: prerenal (poor oral intake + nausea/vomiting) ongoing ABHILASH-I use prior to admission BPH/urinary retention (although not evidence of this on admission imaging) remains on NS at 80. eating a bit but not very enthusiastically. creatinine down to 1.3. (2) Intractable nausea and vomiting: Code(s): R11.2 - Nausea with vomiting, unspecified Status: Acute Assessment and Plan: clinically better today on PPI and PRN IV antiemetics as well as carafate GI on the case. (3) Metabolic acidosis: Code(s): E87.20 - Acidosis, unspecified Status: Acute Assessment and Plan: resolved. (4) Hypertension: Code(s): I10 - Essential (primary) hypertension Status: Chronic Assessment and Plan: ABHILASH-I on hold due to #1 BP 120 to 170. on metoprolol 50 daily will restart low dose lisinopril with his bps in the 170s at times. Will continue to follow. Subjective Date/time seen: 11/21/23 08:47 Interval history: alert. eating some breakfast. less nauseated he says. Exam Narrative: General: WD/WN male in NAD Heart: normal S1 and S2; no rub or gallop Lungs: clear to auscultation Abdomen: soft, nontender, nondistended, positive bowel sounds Extremities: no cyanosis or clubbing; no edema Skin: warm and intact without rash Objective Data Vital Signs Vital Signs: Vital Signs - 24 hr 11/20/23 08:57 11/20/23 09:22 11/20/23 12:00 Temperature Pulse Rate 81 87 Respiratory Rate Blood Pressure Pulse Oximetry Oxygen Delivery Room Air 11/20/23 12:47 11/20/23 08:54 11/20/23 16:00 Temperature 98.5 F Pulse Rate 84 82 Respiratory Rate 18 Blood Pressure 149/74 H Pulse Oximetry 99 Oxygen Delivery Room Air 11/20/23 16:32 11/20/23 16:32 11/20/23 16:37 Temperature 97.4 F L 97.4 F L Pulse Rate 84 84 91 Respiratory Rate 18 18 Blood Pressure 155/74 H 155/74 H 156/80 H Pulse Oximetry 98 98 98 Oxygen Delivery 11/20/23 16:40 11/20/23 19:35 11/20/23 19:36 Temperature 99.8 F H 98.7 F Pulse Rate 95 89 87 Respiratory Rate 18 18 Blood Pressure 148/82 H 174/71 H 164/70 H Pulse Oximetry 99 97 97 Oxygen Delivery 11/20/23 19:40 11/20/23 20:00 11/20/23 20:00 Temperature 99.2 F 99.8 F H Pulse Rate 88 87 Respiratory Rate 18 18 Blood Pressure 172/75 H 174/71 H Pulse Oximetry 100 97 Oxygen Delivery Room Air 11/20/23 23:43 11/21/23 03:51 11/20/23 20:00 Temperature 98.7 F 97.9 F Pulse Rate 82 86 86 Respiratory Rate 18 18 Blood Pressure 168/75 H 139/65 Pulse Oximetry 97 96 Oxygen Delivery 11/21/23 00:00 11/21/23 04:00 11/21/23 08:41 Temperature Pulse Rate 79 96 88 Respiratory Rate Blood Pressure Pulse Oximetry Oxygen Delivery Intake/Output Intake/Output: Intake & Output 11/18/23 11/19/23 11/20/23 11/21/23 23:59 23:59 23:59 23:59 Intake Total 3685.3 3202 2660 1480 Output Total 2250 1825 2725 1705 Balance 1435.3 1377 -65 -225 Meds/Results Medications: Active Medications Generic Name Dose Route Start Last Admin Trade Name Freq PRN Reason Stop Dose Admin Amlodipine Besylate 10 mg 11/17/23 22:05 11/20/23 20:52 Amlodipine Besylate 5 Mg Tablet PO 10 mg HS RIZWAN Administration Lipase/Protease/Amylase 6 cap 11/18/23 08:00
--- NOTE | 2023-11-21 12:25 | WPDGIPROGNO ---
Progress Note: A&P Assessment and Plan (1) Intractable nausea and vomiting: Code(s): R11.2 - Nausea with vomiting, unspecified Status: Acute Assessment and Plan: improved, still poor appetite renal function is back to baseline h/o GERD- will set up EGD as outpatient since he is feeling better (2) Dehydration: Code(s): E86.0 - Dehydration Status: Acute Assessment and Plan: resolved (3) Acute kidney injury: Code(s): N17.9 - Acute kidney failure, unspecified Status: Acute Assessment and Plan: resolved (4) Abdominal pain: Code(s): R10.9 - Unspecified abdominal pain Status: Acute Assessment and Plan: better (5) Gastroesophageal reflux disease: Code(s): K21.9 - Gastro-esophageal reflux disease without esophagitis Status: Acute Assessment and Plan: on ppi (6) Adenomatous colon polyp: Code(s): D12.6 - Benign neoplasm of colon, unspecified Status: Acute Assessment and Plan: he says that also due to have another colonoscopy will set up with egd (outpatient) (7) Pancreatic insufficiency: Code(s): K86.89 - Other specified diseases of pancreas Status: Acute Assessment and Plan: on creon at home (8) Generalized weakness: Code(s): R53.1 - Weakness Status: Acute Assessment and Plan: ? PT at rehab Subjective Date/time seen: 11/21/23 12:25 Interval history: still poor appetite but eating generalized weakness, he is hoping to be discharged to short term rehab for ongoing PT Review of Systems Review of Systems: All systems reviewed & are unremarkable except as noted in HPI and below Exam Const: General: comfortable and no acute distress HENMT: Face/Nose/Sinus: Normal nares present Eyes: General: appearance normal, both eyes and all related structures Neck: Neck: no JVD Resp: Auscultation: clear to auscultation bilaterally Cardio: Rate: regular rate Rhythm: regular rhythm GI: Inspection: non-distended GI Palp: Yes Soft to palpation and No Tenderness to palpation present (GI) Auscultation: normal bowel sounds Skin: General skin exam: normal color Neuro: Speech: normal speech Other: generalized weakness Extrem: General: normal to inspection Psych: Mental Status: mental status grossly normal Objective Data Vital Signs Vital Signs: Vital Signs - 24 hr 11/20/23 12:47 11/20/23 16:00 11/20/23 16:32 Temperature 98.5 F 97.4 F L Pulse Rate 84 82 84 Respiratory Rate 18 18 Blood Pressure 149/74 H 155/74 H Pulse Oximetry 99 98 Oxygen Delivery 11/20/23 16:32 11/20/23 16:37 11/20/23 16:40 Temperature 97.4 F L Pulse Rate 84 91 95 Respiratory Rate 18 Blood Pressure 155/74 H 156/80 H 148/82 H Pulse Oximetry 98 98 99 Oxygen Delivery 11/20/23 19:35 11/20/23 19:36 11/20/23 19:40 Temperature 99.8 F H 98.7 F 99.2 F Pulse Rate 89 87 88 Respiratory Rate 18 18 18 Blood Pressure 174/71 H 164/70 H 172/75 H Pulse Oximetry 97 97 100 Oxygen Delivery 11/20/23 20:00 11/20/23 20:00 11/20/23 23:43 Temperature 99.8 F H 98.7 F Pulse Rate 87 82 Respiratory Rate 18 18 Blood Pressure 174/71 H 168/75 H Pulse Oximetry 97 97 Oxygen Delivery Room Air 11/21/23 03:51 11/20/23 20:00 11/21/23 00:00 Temperature 97.9 F Pulse Rate 86 86 79 Respiratory Rate 18 Blood Pressure 139/65 Pulse Oximetry 96 Oxygen Delivery 11/21/23 04:00 11/21/23 08:41 11/21/23 08:00 Temperature Pulse Rate 96 88 90 Respiratory Rate Blood Pressure Pulse Oximetry Oxygen Delivery 11/21/23 10:30 11/21/23 10:30 11/21/23 10:34 Temperature Pulse Rate 86 86 74 Respiratory Rate Blood Pressure 154/82 H 154/82 H 126/82 Pulse Oximetry Oxygen Delivery 11/21/23 08:36 Temperature Pulse Rate Respiratory Rate Blood Pressure Pulse Oximetry Oxygen Delivery Room Air Intake/Output Intake/Out
--- NOTE | 2023-11-21 13:31 | PM.IMPN ---
Progress Note: A&P Assessment and Plan (1) Dehydration: Code(s): E86.0 - Dehydration Status: Acute (2) Electrolyte abnormality: Code(s): E87.8 - Other disorders of electrolyte and fluid balance, not elsewhere classified Status: Acute (3) Metabolic acidosis: Code(s): E87.20 - Acidosis, unspecified Status: Acute (4) Acute kidney injury: Code(s): N17.9 - Acute kidney failure, unspecified Status: Acute (5) Hypothyroidism: Code(s): E03.9 - Hypothyroidism, unspecified Status: Acute (6) Vomiting: Code(s): R11.10 - Vomiting, unspecified Status: Acute (7) Acute hyperkalemia: Code(s): E87.5 - Hyperkalemia Status: Acute (8) Intractable nausea and vomiting: Code(s): R11.2 - Nausea with vomiting, unspecified Status: Acute Plan Intractable vomiting CT with no acute findings showing diverticulosis GI consulted COVID/Influenza negative IV fluids clear liquid diet advanced to general 4/4 Normal WBC Lipase WNL Acute Kidney injury secondary to dehydration and vomiting-resolving CR 3.9 POA improving with fluids 1.6 4/4 IV fluids avoid nephrotoxins Nephrology consulted osmo's pending HX BPH monitor I&O's Hold his lisinopril and statin Renal US showed normal kidney function BPH Monitor output resume flomax HTN stable resumed home medication amlodapine held lisinopril with HAI BP per unit protocol RT wrist pain post fall 2V RT wrist no fractures Wrist splint Pain control Ice pack Code status: Full code per patient DVT prophylaxis: Heparin Stress ulcer prophylaxis: Protonix 40 daily PT/OT notes: Ambulatory Disposition: Patient continues admission to the medical unit for further treatment and evaluation of idiopathic vomiting and HAI with consult to GI and nephrology. Patient with severe weakness and difficulty ambulating plan for rehab will re-consult CC to assist with discharge planning. Time Spent With Patient Time with patient: 15 - 25 minutes Subjective Date/time seen: 11/21/23 13:32 Interval history: Admission: This is a very pleasant 68-year-old male with hypertension, dyslipidemia, hypothyroidism, gastroesophageal reflux disease, prostate cancer status post radiation, pancreatitis with pancreatic insufficiency, and other comorbidities who presented to the emergency department via EMS from home for evaluation of vomiting and left flank pain. The patient provides the following history. He has not been feeling well for several days and estimates he has vomited at least 20 times a day the last 3 days. He is now having left-sided flank pain which he thinks may be related to vomiting so much. The symptoms are somewhat similar to when he had pancreatitis many years ago. He denies fever, chills, sweats, chest pain, shortness of breath, hematemesis, melena, and hematochezia. In the ED: He was afebrile on arrival with stable blood pressures. Labs were significant for a WBC count of 12.4, hemoglobin 16.7, hematocrit 51.1%, platelets 306, sodium 132, potassium 5.7, chloride 94, carbon dioxide 13, anion gap 25, BUN 50, creatinine 3.90, total protein 9.0. Urine demonstrated 1+ ketones. CT of the abdomen and pelvis was without acute findings. Chest x-ray was normal. He was given 3 L normal saline bolus and Lokelma and is being admitted in this setting for further treatment and evaluation. With further questioning he endorses occasional issues starting his stream, nocturia, urinary frequency, and occasional sensations of incomplete bladder evacuation. He has noticed that his urine is a bit darker the last couple of days. He has not necessarily noticed a decrease in urine output however. He has not been started on any new medications recently and denies NSAID use. 11/17: Patient reported improvement to vomiting, no vomiting overnight but still nauseous, GI consulted my do EGD tomor
[2023-11-21] MEDS: lisinopriL 10 MG TABLET PO (15:05)
[2023-11-21 15:31] LABS: Chloride Rand Ur 52 mmol/L (32-290); Chloride/Creatinine Rand Ur 46 (23-275); Creatinine Random Urine 114 mg/dL (20-320)
[2023-11-21] MEDS: FERROUS SULFATE 325 MG TABLET DR BY MOUTH (21:23)
[2023-11-21] MEDS: amLODIPine BESYLATE 5 MG TABLET 10 MG PO (21:23)
[2023-11-21] MEDS: FOLIC ACID 1 MG TABLET PO (21:23)
[2023-11-21] MEDS: TAMSULOSIN HCL 0.4 MG CAPSULE PO (21:23)
[2023-11-22] VITALS (14 sets, daily range): BP systolic 130–163; BP diastolic 60–79; PULSE 66–95; RESP 18–20; TEMP 36.7–37.2; O2SAT 77–98
[2023-11-22] MEDS: oxyCODONE HCL (*CRX) 5 MG TAB IR PO ×4 (01:39→20:29)
[2023-11-22 05:07] LABS: Hemoglobin 11.4 g/dL (14.0-18.0); Mean Corpuscular HGB Conc 32.6 g/dl (32-36); Mean Corpuscular Hemoglobin 30.6 pg (26-34); Mean Corpuscular Volume 94.1 fl (80-100); Mean Platelet Volume 10.1 fl (7.4-10.4); Platelet Count Result 196 k/mm3 (150-375); Red Blood Count 3.72 M/mm3 (4.6-6.20); Red Cell Distribution Width 13.9 % (11.5-14.5); White Blood Count 7.8 K/mm3 (4.5-10.0)
[2023-11-22 05:16] LABS: Alanine Aminotransferase 26 U/L (6-50); Albumin Level 3.6 g/dL (3.5-5.1); Alkaline Phosphatase 44 U/L (38-126); Anion Gap 4 mmol/L (4-12); Aspartate Amino Transferase 37 U/L (17-59); Bilirubin,Total 0.8 mg/dL (0.2-1.3); Blood Urea Nitrogen 19 mg/dL (9-20); Calcium 8.7 mg/dL (8.4-10.2); Carbon Dioxide 27 mmol/L (22-30); Chloride 98 mmol/L (98-107); Estimated CRCL calculation 42 ml/min; Estimated Glomerular Filt Rate 43; Glucose 126 mg/dL (65-110); Potassium 4.2 mmol/L (3.4-5.0); Sodium 129 mmol/L (137-145)
--- NOTE | 2023-11-22 07:30 | PM.IMPN ---
Progress Note: A&P Assessment and Plan (1) Dehydration: Code(s): E86.0 - Dehydration Status: Acute (2) Electrolyte abnormality: Code(s): E87.8 - Other disorders of electrolyte and fluid balance, not elsewhere classified Status: Acute (3) Metabolic acidosis: Code(s): E87.20 - Acidosis, unspecified Status: Acute (4) Acute kidney injury: Code(s): N17.9 - Acute kidney failure, unspecified Status: Acute (5) Hypothyroidism: Code(s): E03.9 - Hypothyroidism, unspecified Status: Acute (6) Vomiting: Code(s): R11.10 - Vomiting, unspecified Status: Acute (7) Acute hyperkalemia: Code(s): E87.5 - Hyperkalemia Status: Acute (8) Intractable nausea and vomiting: Code(s): R11.2 - Nausea with vomiting, unspecified Status: Acute Plan Intractable vomiting CT with no acute findings showing diverticulosis GI consulted COVID/Influenza negative IV fluids clear liquid diet advanced to general 11/18 Normal WBC Lipase WNL Acute Kidney injury secondary to dehydration and vomiting-resolving CR 3.9 POA improving with fluids 1.6 / IV fluids avoid nephrotoxins Nephrology consulted osmo's pending HX BPH monitor I&O's Hold his lisinopril and statin Renal US showed normal kidney function 11/21: CR 1.6 today Bolus 1L NS NA129 BPH Monitor output resume flomax HTN stable resumed home medication amlodapine held lisinopril with HAI BP per unit protocol RT wrist pain post fall 2V RT wrist no fractures Wrist splint Pain control Ice pack Code status: Full code per patient DVT prophylaxis: Heparin Stress ulcer prophylaxis: Protonix 40 daily PT/OT notes: Ambulatory Disposition: Patient continues admission to the medical unit for further treatment and evaluation of idiopathic vomiting and HAI with consult to GI and nephrology. Patient with severe weakness and difficulty ambulating plan for rehab will re-consult CC to assist with discharge planning. Time Spent With Patient Time with patient: 15 - 25 minutes Subjective Date/time seen: 11/22/23 07:30 Interval history: Admission: This is a very pleasant 68-year-old male with hypertension, dyslipidemia, hypothyroidism, gastroesophageal reflux disease, prostate cancer status post radiation, pancreatitis with pancreatic insufficiency, and other comorbidities who presented to the emergency department via EMS from home for evaluation of vomiting and left flank pain. The patient provides the following history. He has not been feeling well for several days and estimates he has vomited at least 20 times a day the last 3 days. He is now having left-sided flank pain which he thinks may be related to vomiting so much. The symptoms are somewhat similar to when he had pancreatitis many years ago. He denies fever, chills, sweats, chest pain, shortness of breath, hematemesis, melena, and hematochezia. In the ED: He was afebrile on arrival with stable blood pressures. Labs were significant for a WBC count of 12.4, hemoglobin 16.7, hematocrit 51.1%, platelets 306, sodium 132, potassium 5.7, chloride 94, carbon dioxide 13, anion gap 25, BUN 50, creatinine 3.90, total protein 9.0. Urine demonstrated 1+ ketones. CT of the abdomen and pelvis was without acute findings. Chest x-ray was normal. He was given 3 L normal saline bolus and Lokelma and is being admitted in this setting for further treatment and evaluation. With further questioning he endorses occasional issues starting his stream, nocturia, urinary frequency, and occasional sensations of incomplete bladder evacuation. He has noticed that his urine is a bit darker the last couple of days. He has not necessarily noticed a decrease in urine output however. He has not been started on any new medications recently and denies NSAID use. /: Patient reported improvement to vomiting, no vomiting overnight bu
[2023-11-22] MEDS: lisinopriL 10 MG TABLET PO (08:20)
[2023-11-22] MEDS: LIPASE/AMYLASE/PROTEASE 12,000 UNITS CAP 6 CAP PO ×2 (08:20→17:23)
[2023-11-22] MEDS: SUCRALFATE 1 GM TABLET PO ×2 (08:20→17:23)
[2023-11-22] MEDS: PANTOPRAZOLE SODIUM IV 40 MG VIAL IV PUSH (08:21)
[2023-11-22] MEDS: HEPARIN SODIUM 5,000 UNITS/ML VIAL 5000 UNITS SUB-Q ×2 (08:21→20:37)
[2023-11-22] MEDS: GABAPENTIN 300 MG CAPSULE PO ×3 (08:21→17:23)
[2023-11-22] MEDS: THIAMINE HCL 100 MG TABLET PO (08:21)
[2023-11-22] MEDS: METOPROLOL SUCCINATE EXT REL 50 MG TABCR PO (08:22)
[2023-11-22] MEDS: SODIUM CHLORIDE 0.9% IV 1,000 ML 999 ML IV CONT (08:23)
[2023-11-22 12:50] LABS: Sodium 130 mmol/L (137-145)
[2023-11-22] MEDS: SODIUM CHLORIDE 0.9% IV 1,000 ML 100 ML IV CONT (13:36)
[2023-11-22 13:47] LABS: Anion Gap 10 mmol/L (4-12); Blood Urea Nitrogen 21 mg/dL (9-20); Carbon Dioxide 18 mmol/L (22-30); Chloride 102 mmol/L (98-107); Estimated CRCL calculation 48 ml/min; Estimated Glomerular Filt Rate 51; Glucose 164 mg/dL (65-110); Potassium 4.4 mmol/L (3.4-5.0)
--- NOTE | 2023-11-22 16:21 | P.PNNP_ITS ---
Progress Note: A&P Assessment and Plan (1) Acute kidney injury: Code(s): N17.9 - Acute kidney failure, unspecified Status: Acute Assessment and Plan: * HAI. * normal creatinine in March 2023. * he saw a straw hat plunger operator 8 months ago who said to watch the protein and drink a lot of fluid. not sure what his creatinine was to send him to nephrology then. * evaluation to date noted: * renal ultrasound unremarkable * admission CT of abd/pelvis without any acute pathology * urine electrolytes are prerenal * urine eosinophils negative * CPK normal * suspect insult multifactorial: * prerenal (poor oral intake + nausea/vomiting) * ongoing ABHILASH-I use prior to admission * BPH/urinary retention (although not evidence of this on admission imaging) * IVFs stopped yesterday * creatinine netta to 1.6 today. * possilby due to being off ivfs or starting lisinopril or both. * eating a little more. * Will stop lisinopril and restart fluids. * Since the above, more labs were done and the creatinine is down to 1.4. (2) Intractable nausea and vomiting: Code(s): R11.2 - Nausea with vomiting, unspecified Status: Acute Assessment and Plan: * clinically better today * on PPI and PRN IV antiemetics as well as carafate * GI on the case. (3) Metabolic acidosis: Code(s): E87.20 - Acidosis, unspecified Status: Acute Assessment and Plan: * Co2 back down to 18 now. * AG netta form 4 to 10. * check lactate and BHOB (but sugar is okay) * the co2 was low and AG was very high on admission. that was when the creatinine was up, however. * repeat this tomorrow. (4) Hypertension: Code(s): I10 - Essential (primary) hypertension Status: Chronic Assessment and Plan: * ABHILASH-I on hold due to #1 * BP 120 to 170. * on metoprolol 50 daily * will restart low dose lisinopril with his bps in the 170s at times. Will continue to follow. Subjective Date/time seen: 11/22/23 16:21 Interval history: alert. nausea is better. Exam Narrative: General: WD/WN male in NAD Heart: normal S1 and S2; no rub or gallop Lungs: clear bilaterally Abdomen: BS+ nontender Extremities: no cyanosis or clubbing; no edema Skin: no rash Objective Data Vital Signs Vital Signs: Vital Signs - 24 hr 11/21/23 20:00 11/21/23 21:05 11/21/23 21:07 Temperature 100.7 F H 98.8 F 98.5 F Pulse Rate 81 86 88 Respiratory Rate 18 18 18 Blood Pressure 163/69 H 170/84 H 162/83 H Pulse Oximetry 97 97 96 Oxygen Delivery 11/21/23 22:00 11/21/23 20:00 11/22/23 02:00 Temperature 100.2 F H 98.4 F Pulse Rate 86 77 Respiratory Rate 18 18 Blood Pressure 133/67 140/60 Pulse Oximetry 94 77 L Oxygen Delivery Room Air 11/22/23 06:00 11/21/23 20:00 11/22/23 00:00 Temperature 99.0 F Pulse Rate 70 83 81 Respiratory Rate 18 Blood Pressure 145/61 H Pulse Oximetry 95 Oxygen Delivery 11/22/23 04:00 11/22/23 08:22 11/22/23 08:17 Temperature Pulse Rate 86 74 Respiratory Rate Blood Pressure Pulse Oximetry Oxygen Delivery Room Air
--- NOTE | 2023-11-22 16:21 | PM.PNNEP ---
Progress Note: A&P Assessment and Plan (1) Acute kidney injury: Code(s): N17.9 - Acute kidney failure, unspecified Status: Acute Assessment and Plan: HAI. normal creatinine in March 2023. he saw a deputy editor in chief 8 months ago who said to watch the protein and drink a lot of fluid. not sure what his creatinine was to send him to nephrology then. evaluation to date noted: renal ultrasound unremarkable admission CT of abd/pelvis without any acute pathology urine electrolytes are prerenal urine eosinophils negative CPK normal suspect insult multifactorial: prerenal (poor oral intake + nausea/vomiting) ongoing ABHILASH-I use prior to admission BPH/urinary retention (although not evidence of this on admission imaging) IVFs stopped yesterday creatinine netta to 1.6 today. possilby due to being off ivfs or starting lisinopril or both. eating a little more. Will stop lisinopril and restart fluids. Since the above, more labs were done and the creatinine is down to 1.4. (2) Intractable nausea and vomiting: Code(s): R11.2 - Nausea with vomiting, unspecified Status: Acute Assessment and Plan: clinically better today on PPI and PRN IV antiemetics as well as carafate GI on the case. (3) Metabolic acidosis: Code(s): E87.20 - Acidosis, unspecified Status: Acute Assessment and Plan: Co2 back down to 18 now. AG netta form 4 to 10. check lactate and BHOB (but sugar is okay) the co2 was low and AG was very high on admission. that was when the creatinine was up, however. repeat this tomorrow. (4) Hypertension: Code(s): I10 - Essential (primary) hypertension Status: Chronic Assessment and Plan: ABHILASH-I on hold due to #1 BP 120 to 170. on metoprolol 50 daily will restart low dose lisinopril with his bps in the 170s at times. Will continue to follow. Subjective Date/time seen: 11/22/23 16:21 Interval history: alert. nausea is better. Exam Narrative: General: WD/WN male in NAD Heart: normal S1 and S2; no rub or gallop Lungs: clear bilaterally Abdomen: BS+ nontender Extremities: no cyanosis or clubbing; no edema Skin: no rash Objective Data Vital Signs Vital Signs: Vital Signs - 24 hr 11/21/23 20:00 11/21/23 21:05 11/21/23 21:07 Temperature 100.7 F H 98.8 F 98.5 F Pulse Rate 81 86 88 Respiratory Rate 18 18 18 Blood Pressure 163/69 H 170/84 H 162/83 H Pulse Oximetry 97 97 96 Oxygen Delivery 11/21/23 22:00 11/21/23 20:00 11/22/23 02:00 Temperature 100.2 F H 98.4 F Pulse Rate 86 77 Respiratory Rate 18 18 Blood Pressure 133/67 140/60 Pulse Oximetry 94 77 L Oxygen Delivery Room Air 11/22/23 06:00 11/21/23 20:00 11/22/23 00:00 Temperature 99.0 F Pulse Rate 70 83 81 Respiratory Rate 18 Blood Pressure 145/61 H Pulse Oximetry 95 Oxygen Delivery 11/22/23 04:00 11/22/23 08:22 11/22/23 08:17 Temperature Pulse Rate 86 74 Respiratory Rate Blood Pressure Pulse Oximetry Oxygen Delivery Room Air 11/22/23 08:00 11/22/23 14:00 Temperature 99.0 F Pulse Rate 66 71 Respiratory Rate 20 Blood Pressure 130/62 Pulse Oximetry 97 Oxygen Delivery Intake/Output Intake/Output: Intake & Output 11/19/23 11/20/23 11/21/23 11/22/23 23:59 23:59 23:59 23:59 Intake Total 3202 2660 3050.7 1860 Output Total 1825 2725 2030 1545 Balance 1377 -65 1020.7 315 Meds/Results Medications: Active Medications Generic Name Dose Route Start Last Admin Trade Name Sonia PRN Reason Stop Dose Admin Amlodipine Besylate 10 mg 11/17/23 22:05 11/21/23 21:23 Amlodipine Besylate 5 Mg Tablet PO 10 mg HS RIZWAN Administration Lipase/Protease/Amylase 6 cap 11/18/23 08:00 11/22/23 13:08 Lipase/Amylase/Protease 12,000 Units Cap PO Not Given TIDWM [facility] Ferrous Sulfate 325 mg 11/17/23 22:05 11/21/23 21:23 Ferrous Sulfate 325
[2023-11-22 17:22] LABS: Lactic Acid Reflex 0.9 mmol/L (0.7-2.0)
[2023-11-22 17:27] LABS: Beta-Hydroxybutyrate/Acetoacetate 0.08 mmol/L (0.02-0.27)
[2023-11-22] MEDS: TAMSULOSIN HCL 0.4 MG CAPSULE PO (20:29)
[2023-11-22] MEDS: amLODIPine BESYLATE 5 MG TABLET 10 MG PO (20:29)
[2023-11-22] MEDS: FERROUS SULFATE 325 MG TABLET DR BY MOUTH (20:29)
[2023-11-22] MEDS: FOLIC ACID 1 MG TABLET PO (20:29)
--- NOTE | 2023-11-22 20:55 | PC.NURSE ---
Went in for evening med pass and patient was irritable and argumentative about everything. He stated that he had multiple complaints, but was unable to add any specifics regarding said complaints. After verifying that patient did receive everything he had called out for, patient become verbally aggressive and started using curse words while repeatedly talking about how unhappy he was with his care. This nurse gave evening medication and made sure patient had everything that he was requesting before allowing the patient to rest.
[2023-11-23] VITALS (12 sets, daily range): BP systolic 101–162; BP diastolic 50–96; PULSE 65–89; RESP 16–18; TEMP 36.2–37.3; O2SAT 94–100
[2023-11-23] MEDS: oxyCODONE HCL (*CRX) 5 MG TAB IR PO ×4 (00:54→17:53)
[2023-11-23 05:39] LABS: Hemoglobin 11.7 g/dL (14.0-18.0); Mean Corpuscular HGB Conc 33.4 g/dl (32-36); Mean Corpuscular Hemoglobin 30.5 pg (26-34); Mean Corpuscular Volume 91.1 fl (80-100); Mean Platelet Volume 10.4 fl (7.4-10.4); Platelet Count Result 230 k/mm3 (150-375); Red Blood Count 3.84 M/mm3 (4.6-6.20); Red Cell Distribution Width 13.8 % (11.5-14.5); White Blood Count 6.4 K/mm3 (4.5-10.0)
[2023-11-23 06:01] LABS: Alanine Aminotransferase 41 U/L (6-50); Albumin Level 3.8 g/dL (3.5-5.1); Alkaline Phosphatase 49 U/L (38-126); Anion Gap 5 mmol/L (4-12); Aspartate Amino Transferase 53 U/L (17-59); Bilirubin,Total 0.6 mg/dL (0.2-1.3); Blood Urea Nitrogen 21 mg/dL (9-20); Calcium 9.2 mg/dL (8.4-10.2); Carbon Dioxide 26 mmol/L (22-30); Chloride 102 mmol/L (98-107); Estimated CRCL calculation 48 ml/min; Estimated Glomerular Filt Rate 51; Glucose 122 mg/dL (65-110); Phosphorus 3.5 mg/dL (2.5-4.5); Potassium 4.4 mmol/L (3.4-5.0); Sodium 133 mmol/L (137-145)
--- NOTE | 2023-11-23 07:53 | PM.IMPN ---
Progress Note: A&P Assessment and Plan (1) Dehydration: Code(s): E86.0 - Dehydration Status: Acute (2) Electrolyte abnormality: Code(s): E87.8 - Other disorders of electrolyte and fluid balance, not elsewhere classified Status: Acute (3) Metabolic acidosis: Code(s): E87.20 - Acidosis, unspecified Status: Acute (4) Acute kidney injury: Code(s): N17.9 - Acute kidney failure, unspecified Status: Acute (5) Hypothyroidism: Code(s): E03.9 - Hypothyroidism, unspecified Status: Acute (6) Vomiting: Code(s): R11.10 - Vomiting, unspecified Status: Acute (7) Acute hyperkalemia: Code(s): E87.5 - Hyperkalemia Status: Acute (8) Intractable nausea and vomiting: Code(s): R11.2 - Nausea with vomiting, unspecified Status: Acute Plan Intractable vomiting CT with no acute findings showing diverticulosis GI consulted COVID/Influenza negative IV fluids clear liquid diet advanced to general 11/18 Normal WBC Lipase WNL Acute Kidney injury secondary to dehydration and vomiting-resolving CR 3.9 POA improving with fluids 1.6 11/18 IV fluids avoid nephrotoxins Nephrology consulted osmo's pending HX BPH monitor I&O's Hold his lisinopril and statin Renal US showed normal kidney function 11/21: CR 1.6 today Bolus 1L NS NA129 11/22: NA 133 today with IV fluids Cr. 1.4 BPH Monitor output resume flomax HTN stable resumed home medication amlodapine held lisinopril with HAI BP per unit protocol RT wrist pain post fall 2V RT wrist no fractures Wrist splint Pain control Ice pack Code status: Full code per patient DVT prophylaxis: Heparin Stress ulcer prophylaxis: Protonix 40 daily PT/OT notes: PT/OT recommended Acute inpatient Rehab Disposition: Patient continues admission to the medical unit for further treatment and evaluation of idiopathic vomiting and HAI with consult to GI and nephrology. Patient with severe weakness and difficulty ambulating plan for rehab will re-consult CC to assist with discharge planning. Time Spent With Patient Time with patient: 15 - 25 minutes Subjective Date/time seen: 11/23/23 07:53 Interval history: Admission: This is a very pleasant 68-year-old male with hypertension, dyslipidemia, hypothyroidism, gastroesophageal reflux disease, prostate cancer status post radiation, pancreatitis with pancreatic insufficiency, and other comorbidities who presented to the emergency department via EMS from home for evaluation of vomiting and left flank pain. The patient provides the following history. He has not been feeling well for several days and estimates he has vomited at least 20 times a day the last 3 days. He is now having left-sided flank pain which he thinks may be related to vomiting so much. The symptoms are somewhat similar to when he had pancreatitis many years ago. He denies fever, chills, sweats, chest pain, shortness of breath, hematemesis, melena, and hematochezia. In the ED: He was afebrile on arrival with stable blood pressures. Labs were significant for a WBC count of 12.4, hemoglobin 16.7, hematocrit 51.1%, platelets 306, sodium 132, potassium 5.7, chloride 94, carbon dioxide 13, anion gap 25, BUN 50, creatinine 3.90, total protein 9.0. Urine demonstrated 1+ ketones. CT of the abdomen and pelvis was without acute findings. Chest x-ray was normal. He was given 3 L normal saline bolus and Lokelma and is being admitted in this setting for further treatment and evaluation. With further questioning he endorses occasional issues starting his stream, nocturia, urinary frequency, and occasional sensations of incomplete bladder evacuation. He has noticed that his urine is a bit darker the last couple of days. He has not necessarily noticed a decrease in urine output however. He has not been started on any new medications recently and denies NSAID use.
--- NOTE | 2023-11-23 10:17 | P.PNNP_ITS ---
Progress Note: A&P Assessment and Plan (1) Acute kidney injury: Code(s): N17.9 - Acute kidney failure, unspecified Status: Acute Assessment and Plan: * normal creatinine in March 2023 (while at [facility]) * reported CKD Stage 3 history (also by labs in 2022) * creatinine fluctuated around 1.3- 1.7mg/dl -- saw [facility] Nephrology * felt to be secondary to hemodynamic effects from diuretics, ABHILASH-I use and NSAIDs; no evidence of proteinuria * CT scan of the abdomen and pelvis with contrast on 11/26/22 with bilateral renal scarring and cortical thinning * evaluation to date on this admission noted: * renal ultrasound unremarkable * admission CT of abd/pelvis without any acute pathology * urine electrolytes are prerenal * urine eosinophils negative * CPK normal * suspect insult multifactorial: * prerenal (poor oral intake + nausea/vomiting) * ongoing ABHILASH-I use prior to admission * BPH/urinary retention (although not evidence of this on admission imaging) * resumed on IVFs yesterday and ABHILASH-I placed back on hold * follow trend of labs and UOP -- noted CKD history as well (2) Intractable nausea and vomiting: Code(s): R11.2 - Nausea with vomiting, unspecified Status: Acute Assessment and Plan: * clinically better today * on PPI and PRN IV antiemetics as well as carafate * GI following (3) Metabolic acidosis: Code(s): E87.20 - Acidosis, unspecified Status: Acute Assessment and Plan: * resolving * continue supportive therapy (4) Hypertension: Code(s): I10 - Essential (primary) hypertension Status: Chronic Assessment and Plan: * ABHILASH-I on hold due to #1 * on metoprolol and amlodipine * follow trend of hemodynamics Will continue to follow. Subjective Date/time seen: 11/23/23 10:17 Interval history: Follow-up for acute kidney injury/acute renal failure. Chart reviewed since last seen -- restarted on IVFs yesterday due to drop in sodium as well as rise in creatinine; sodium as well as renal function better today with restart of IVFs; he reports that he is eating and drinking better as well; no apparent distress noted. Exam Narrative: General: WD/WN male in NAD Heart: normal S1 and S2; no rub Lungs: clear bilaterally Abdomen: soft, nontender, +BS Extremities: no cyanosis or clubbing; no edema Skin: no nodules Objective Data Vital Signs Vital Signs: Vital Signs Temp Pulse Resp BP Pulse Ox O2 Del Method 11/23/23 10:15 77 145/62 H 99 Room Air 11/23/23 06:00 98.3 F 77 18 135/70 97 11/23/23 02:00 98.0 F 65 18 123/50 L 94 11/22/23 22:00 98.0 F 70 18 147/63 H 97 11/22/23 20:00 Room Air 11/22/23 20:14 98.5 F 95 18 157/71 H 98 11/22/23 20:12 98.5 F 83 18 146/61 H 98 11/22/23 20:00 98.5 F 76 18 163/73 H 97 11/22/23 19:19 146/74 H 11/22/23 19:17 153/74 H 11/22/23 19:15 152/79 H 11/22/23 14:00 99.0 F 71 20 130/62 97 Intake/Output Intake/Output: Intake & Output 11/20/23 11/21/23 11/22/23 11/23/23 23:59 23:59 23:59 23:59 Intake Total 2660 3050.7 2100 1120 Output Total 2725 2030 2145 1300 Balance -65 1020.7 -45 -180
--- NOTE | 2023-11-23 10:17 | PM.PNNEP ---
Progress Note: A&P Assessment and Plan (1) Acute kidney injury: Code(s): N17.9 - Acute kidney failure, unspecified Status: Acute Assessment and Plan: normal creatinine in March 2023 (while at [facility]) reported CKD Stage 3 history (also by labs in 2022) creatinine fluctuated around 1.3- 1.7mg/dl -- saw [facility] Nephrology felt to be secondary to hemodynamic effects from diuretics, ABHILASH-I use and NSAIDs; no evidence of proteinuria CT scan of the abdomen and pelvis with contrast on 11/26/22 with bilateral renal scarring and cortical thinning evaluation to date on this admission noted: renal ultrasound unremarkable admission CT of abd/pelvis without any acute pathology urine electrolytes are prerenal urine eosinophils negative CPK normal suspect insult multifactorial: prerenal (poor oral intake + nausea/vomiting) ongoing ABHILASH-I use prior to admission BPH/urinary retention (although not evidence of this on admission imaging) resumed on IVFs yesterday and ABHILASH-I placed back on hold follow trend of labs and UOP -- noted CKD history as well (2) Intractable nausea and vomiting: Code(s): R11.2 - Nausea with vomiting, unspecified Status: Acute Assessment and Plan: clinically better today on PPI and PRN IV antiemetics as well as carafate GI following (3) Metabolic acidosis: Code(s): E87.20 - Acidosis, unspecified Status: Acute Assessment and Plan: resolving continue supportive therapy (4) Hypertension: Code(s): I10 - Essential (primary) hypertension Status: Chronic Assessment and Plan: ABHILASH-I on hold due to #1 on metoprolol and amlodipine follow trend of hemodynamics Will continue to follow. Subjective Date/time seen: 11/23/23 10:17 Interval history: Follow-up for acute kidney injury/acute renal failure. Chart reviewed since last seen -- restarted on IVFs yesterday due to drop in sodium as well as rise in creatinine; sodium as well as renal function better today with restart of IVFs; he reports that he is eating and drinking better as well; no apparent distress noted. Exam Narrative: General: WD/WN male in NAD Heart: normal S1 and S2; no rub Lungs: clear bilaterally Abdomen: soft, nontender, +BS Extremities: no cyanosis or clubbing; no edema Skin: no nodules Objective Data Vital Signs Vital Signs: Vital Signs Temp Pulse Resp BP Pulse Ox O2 Del Method 11/23/23 10:15 77 145/62 H 99 Room Air 11/23/23 06:00 98.3 F 77 18 135/70 97 11/23/23 02:00 98.0 F 65 18 123/50 L 94 11/22/23 22:00 98.0 F 70 18 147/63 H 97 11/22/23 20:00 Room Air 11/22/23 20:14 98.5 F 95 18 157/71 H 98 11/22/23 20:12 98.5 F 83 18 146/61 H 98 11/22/23 20:00 98.5 F 76 18 163/73 H 97 11/22/23 19:19 146/74 H 11/22/23 19:17 153/74 H 11/22/23 19:15 152/79 H 11/22/23 14:00 99.0 F 71 20 130/62 97 Intake/Output Intake/Output: Intake & Output 11/20/23 11/21/23 11/22/23 11/23/23 23:59 23:59 23:59 23:59 Intake Total 2660 3050.7 2100 1120 Output Total 2725 2030 2145 1300 Balance -65 1020.7 -45 -180 Meds/Results Medications: Active Medications Generic Name Dose Route Start Last Admin Trade Name Freq PRN Reason Stop Dose Admin Amlodipine Besylate 10 mg 11/17/23 22:05 11/22/23 20:29 Amlodipine Besylate 5 Mg Tablet PO 10 mg HS [facility] Administration Lipase/Protease/Amylase 6 cap 11/18/23 08:00 11/23/23 10:31 Lipase/Amylase/Protease 12,000 Units Cap PO Not Given TIDWM [facility] Emollient Ointment 1 applic 11/23/23 05:10 Petrolatum Oint 30 Gm Tube TOPICAL PRN PRN Dry Skin Ferrous Sulfate 325 mg 11/17/23 22:05 11/22/23 20:29 Ferrous Sulfate [address] BY MOUTH 325 mg HS [facility] Administration Folic Acid 1 mg 11/17/23 22:05 11/22/23 20:29 Folic Acid 1 Mg Tablet PO 1 mg HS SC
[2023-11-23] MEDS: METOPROLOL SUCCINATE EXT REL 50 MG TABCR PO (10:31)
[2023-11-23] MEDS: GABAPENTIN 300 MG CAPSULE PO ×3 (10:31→17:48)
[2023-11-23] MEDS: THIAMINE HCL 100 MG TABLET PO (10:31)
[2023-11-23] MEDS: PANTOPRAZOLE SODIUM IV 40 MG VIAL IV PUSH (10:32)
[2023-11-23] MEDS: HEPARIN SODIUM 5,000 UNITS/ML VIAL 5000 UNITS SUB-Q (10:34)
[2023-11-23] MEDS: SUCRALFATE 1 GM TABLET PO ×2 (12:11→17:47)
[2023-11-23] MEDS: LIPASE/AMYLASE/PROTEASE 12,000 UNITS CAP 6 CAP PO ×2 (12:11→17:48)
--- NOTE | 2023-11-23 13:21 | PCOTNOTE ---
The patient treatment was not able to be completed. Patient on the phone and request to be seen later. Will plan to continue treatment per plan of care.
[2023-11-23] MEDS: TAMSULOSIN HCL 0.4 MG CAPSULE PO (20:15)
[2023-11-23] MEDS: amLODIPine BESYLATE 5 MG TABLET 10 MG PO (20:15)
[2023-11-23] MEDS: FOLIC ACID 1 MG TABLET PO (20:15)
[2023-11-23] MEDS: FERROUS SULFATE 325 MG TABLET DR BY MOUTH (20:15)
[2023-11-23] MEDS: SODIUM CHLORIDE 0.9% IV 1,000 ML 50 ML IV CONT (20:18)
[2023-11-24] MEDS: oxyCODONE HCL (*CRX) 5 MG TAB IR PO ×5 (00:12→23:08)
[2023-11-24 04:10] VITALS: BP 126/66; PULSE 73; RESP 16; TEMP 37.6; O2SAT 96
[2023-11-24 05:42] LABS: Hematocrit 34.1 % (42.0-52.0); Hemoglobin 11.2 g/dL (14.0-18.0); Mean Corpuscular HGB Conc 32.8 g/dl (32-36); Mean Corpuscular Hemoglobin 30.9 pg (26-34); Mean Corpuscular Volume 93.9 fl (80-100); Platelet Count Result 270 k/mm3 (150-375); Red Blood Count 3.63 M/mm3 (4.6-6.20); Red Cell Distribution Width 13.5 % (11.5-14.5); White Blood Count 6.9 K/mm3 (4.5-10.0)
[2023-11-24 05:51] LABS: Alanine Aminotransferase 65 U/L (6-50); Alkaline Phosphatase 54 U/L (38-126); Anion Gap 8 mmol/L (4-12); Aspartate Amino Transferase 70 U/L (17-59); Bilirubin,Total 0.6 mg/dL (0.2-1.3); Blood Urea Nitrogen 21 mg/dL (9-20); Calcium 9.3 mg/dL (8.4-10.2); Carbon Dioxide 22 mmol/L (22-30); Chloride 102 mmol/L (98-107); Estimated CRCL calculation 48 ml/min; Estimated Glomerular Filt Rate 51; Glucose 117 mg/dL (65-110); Potassium 4.4 mmol/L (3.4-5.0); Sodium 132 mmol/L (137-145)
[2023-11-24 09:28] VITALS: PULSE 70
[2023-11-24] MEDS: METOPROLOL SUCCINATE EXT REL 50 MG TABCR PO (09:28)
[2023-11-24] MEDS: LIPASE/AMYLASE/PROTEASE 12,000 UNITS CAP 6 CAP PO ×3 (09:28→18:03)
[2023-11-24] MEDS: HEPARIN SODIUM 5,000 UNITS/ML VIAL 5000 UNITS SUB-Q ×2 (09:28→20:58)
[2023-11-24] MEDS: GABAPENTIN 300 MG CAPSULE PO ×3 (09:29→18:03)
[2023-11-24] MEDS: PANTOPRAZOLE SODIUM IV 40 MG VIAL IV PUSH (09:29)
[2023-11-24] MEDS: THIAMINE HCL 100 MG TABLET PO (09:29)
--- NOTE | 2023-11-24 09:36 | PM.IMPN ---
Progress Note: A&P Assessment and Plan (1) Dehydration: Code(s): E86.0 - Dehydration Status: Acute (2) Electrolyte abnormality: Code(s): E87.8 - Other disorders of electrolyte and fluid balance, not elsewhere classified Status: Acute (3) Metabolic acidosis: Code(s): E87.20 - Acidosis, unspecified Status: Acute (4) Acute kidney injury: Code(s): N17.9 - Acute kidney failure, unspecified Status: Acute (5) Hypothyroidism: Code(s): E03.9 - Hypothyroidism, unspecified Status: Acute (6) Vomiting: Code(s): R11.10 - Vomiting, unspecified Status: Acute (7) Acute hyperkalemia: Code(s): E87.5 - Hyperkalemia Status: Acute (8) Intractable nausea and vomiting: Code(s): R11.2 - Nausea with vomiting, unspecified Status: Acute Plan Intractable vomiting-RESOLVED CT with no acute findings showing diverticulosis GI consulted COVID/Influenza negative IV fluids clear liquid diet advanced to general 11/18 Normal WBC Lipase WNL Acute Kidney injury secondary to dehydration and vomiting-resolving CR 3.9 POA improving with fluids 1.6 4 IV fluids avoid nephrotoxins Nephrology consulted osmo's pending HX BPH monitor I&O's Hold his lisinopril and statin Renal US showed normal kidney function 11/21: CR 1.6 today Bolus 1L NS NA129 11/22: NA 133 today with IV fluids Cr. 1.4 BPH Monitor output resume flomax HTN stable resumed home medication amlodapine held lisinopril with HAI BP per unit protocol RT wrist pain post fall 2V RT wrist no fractures Wrist splint Pain control Ice pack Code status: Full code per patient DVT prophylaxis: Heparin Stress ulcer prophylaxis: Protonix 40 daily PT/OT notes: PT/OT recommended Acute inpatient Rehab Disposition: Patient continues admission to the medical unit for further treatment and evaluation of idiopathic vomiting and HAI with consult to GI and nephrology. Patient with severe weakness and difficulty ambulating plan for rehab/swing bed Time Spent With Patient Time with patient: 15 - 25 minutes Subjective Date/time seen: 11/24/23 09:36 Interval history: Admission: This is a very pleasant 68-year-old male with hypertension, dyslipidemia, hypothyroidism, gastroesophageal reflux disease, prostate cancer status post radiation, pancreatitis with pancreatic insufficiency, and other comorbidities who presented to the emergency department via EMS from home for evaluation of vomiting and left flank pain. The patient provides the following history. He has not been feeling well for several days and estimates he has vomited at least 20 times a day the last 3 days. He is now having left-sided flank pain which he thinks may be related to vomiting so much. The symptoms are somewhat similar to when he had pancreatitis many years ago. He denies fever, chills, sweats, chest pain, shortness of breath, hematemesis, melena, and hematochezia. In the ED: He was afebrile on arrival with stable blood pressures. Labs were significant for a WBC count of 12.4, hemoglobin 16.7, hematocrit 51.1%, platelets 306, sodium 132, potassium 5.7, chloride 94, carbon dioxide 13, anion gap 25, BUN 50, creatinine 3.90, total protein 9.0. Urine demonstrated 1+ ketones. CT of the abdomen and pelvis was without acute findings. Chest x-ray was normal. He was given 3 L normal saline bolus and Lokelma and is being admitted in this setting for further treatment and evaluation. With further questioning he endorses occasional issues starting his stream, nocturia, urinary frequency, and occasional sensations of incomplete bladder evacuation. He has noticed that his urine is a bit darker the last couple of days. He has not necessarily noticed a decrease in urine output however. He has not been started on any new medications recently and denies NSAID use. /: Patient reported improvement to
[2023-11-24 10:00] VITALS: BP 128/77; PULSE 73; RESP 16; TEMP 36.8; O2SAT 99
--- NOTE | 2023-11-24 11:11 | PM.PNNEP ---
Progress Note: A&P Assessment and Plan (1) Acute kidney injury: Code(s): N17.9 - Acute kidney failure, unspecified Status: Acute Assessment and Plan: normal creatinine in March 2023 (while at [facility]) evaluation to date on this admission noted: renal ultrasound unremarkable admission CT of abd/pelvis without any acute pathology urine electrolytes are prerenal urine eosinophils negative CPK normal suspect insult multifactorial: prerenal (poor oral intake + nausea/vomiting) ongoing ABHILASH-I use prior to admission BPH/urinary retention (although not evidence of this on admission imaging) resumed on IVFs and ABHILASH-I placed back on hold follow trend of labs and UOP -- noted CKD history as well (2) Stage 3a chronic kidney disease: Code(s): N18.31 - Chronic kidney disease, stage 3a Status: Chronic Assessment and Plan: reported CKD Stage 3 history according to patient (also by labs in 2022) creatinine was fluctuated around 1.3 - 1.7mg/dl -- saw [facility] Nephrology felt to be secondary to hemodynamic effects from diuretics, ABHILASH-I use and NSAIDs; no evidence of proteinuria CT scan of the abdomen and pelvis with contrast on 11/26/22 with bilateral renal scarring and cortical thinning (3) Intractable nausea and vomiting: Code(s): R11.2 - Nausea with vomiting, unspecified Status: Acute Assessment and Plan: clinically better on PPI and PRN IV antiemetics as well as carafate GI following (4) Hypertension: Code(s): I10 - Essential (primary) hypertension Status: Chronic Assessment and Plan: ABHILASH-I on hold due to #1 on metoprolol and amlodipine follow trend of hemodynamics Will continue to follow. Subjective Date/time seen: 11/24/23 11:11 Interval history: Follow-up for acute kidney injury/acute renal failure. Renal function remains relatively stable; tolerating better oral intake than before; no apparent distress voiced at the time of my visit; no issues/events overnight or earlier this morning; feels reasonably well. Exam Narrative: General: WD/WN male in NAD Heart: normal S1 and S2; no rub Lungs: clear bilaterally Abdomen: soft, nontender, +BS Extremities: no cyanosis or clubbing; no edema Skin: warm and dry Objective Data Vital Signs Vital Signs: Vital Signs Temp Pulse Resp BP Pulse Ox O2 Del Method 11/24/23 10:00 98.3 F 73 16 128/77 99 11/24/23 09:28 70 11/24/23 04:10 99.6 F 73 16 126/66 96 11/23/23 22:00 97.7 F 74 18 101/90 95 11/23/23 20:41 98.4 F 89 18 149/61 H 100 11/23/23 20:38 98.4 F 85 18 157/96 H 97 11/23/23 20:00 98.7 F 78 18 162/68 H 98 11/23/23 20:00 Room Air 11/23/23 16:40 98.6 F 80 16 143/71 H 97 11/23/23 16:35 98.9 F 76 16 123/62 95 11/23/23 16:30 99.1 F 75 16 138/62 97 11/23/23 15:07 97.1 F L 86 16 139/71 99 Intake/Output Intake/Output: Intake & Output 11/21/23 11/22/23 11/23/23 11/24/23 23:59 23:59 23:59 23:59 Intake Total 3050.7 2100 1880 340 Output Total 2030 2145 2349 600 Balance 1020.7 -45 -469 -260 Meds/Results Medications: Active Medications Generic Name Dose Route Start Last Admin Trade Name Freq PRN Reason Stop Dose Admin Amlodipine Besylate 10 mg 11/17/23 22:05 11/23/23 20:15 Amlodipine Besylate 5 Mg Tablet PO 10 mg HS RIZWAN Administration Lipase/Protease/Amylase 6 cap 11/18/23 08:00 11/24/23 09:28 Lipase/Amylase/Protease 12,000 Units Cap PO 6 cap TIDWM RIZWAN Administration Emollient Ointment 1 applic 11/23/23 05:10 Petrolatum Oint 30 Gm Tube TOPICAL PRN PRN Dry Skin Ferrous Sulfate 325 mg 11/17/23 22:05 11/23/23 20:15 Ferrous Sulfate [address] BY MOUTH 325 mg HS RIZWAN Administration Folic Acid 1 mg 11/17/23 22:05 11/23/23 20:15 Folic Acid 1 Mg Tablet PO 1 mg HS RIZWAN Administration Gabapentin 3
--- NOTE | 2023-11-24 11:11 | P.PNNP_ITS ---
Progress Note: A&P Assessment and Plan (1) Acute kidney injury: Code(s): N17.9 - Acute kidney failure, unspecified Status: Acute Assessment and Plan: * normal creatinine in March 2023 (while at [facility] [place]) * evaluation to date on this admission noted: * renal ultrasound unremarkable * admission CT of abd/pelvis without any acute pathology * urine electrolytes are prerenal * urine eosinophils negative * CPK normal * suspect insult multifactorial: * prerenal (poor oral intake + nausea/vomiting) * ongoing ABHILASH-I use prior to admission * BPH/urinary retention (although not evidence of this on admission imaging) * resumed on IVFs and ABHILASH-I placed back on hold * follow trend of labs and UOP -- noted CKD history as well (2) Stage 3a chronic kidney disease: Code(s): N18.31 - Chronic kidney disease, stage 3a Status: Chronic Assessment and Plan: * reported CKD Stage 3 history according to patient (also by labs in 2022) * creatinine was fluctuated around 1.3 - 1.7mg/dl -- saw [facility] Ne[facility] * felt to be secondary to hemodynamic effects from diuretics, ABHILASH-I use and NSAIDs; no evidence of proteinuria * CT scan of the abdomen and pelvis with contrast on 11/26/22 with bilateral renal scarring and cortical thinning (3) Intractable nausea and vomiting: Code(s): R11.2 - Nausea with vomiting, unspecified Status: Acute Assessment and Plan: * clinically better * on PPI and PRN IV antiemetics as well as carafate * GI following (4) Hypertension: Code(s): I10 - Essential (primary) hypertension Status: Chronic Assessment and Plan: * ABHILASH-I on hold due to #1 * on metoprolol and amlodipine * follow trend of hemodynamics Will continue to follow. Subjective Date/time seen: 11/24/23 11:11 Interval history: Follow-up for acute kidney injury/acute renal failure. Renal function remains relatively stable; tolerating better oral intake than before; no apparent distress voiced at the time of my visit; no issues/events overnight or earlier this morning; feels reasonably well. Exam Narrative: General: WD/WN male in NAD Heart: normal S1 and S2; no rub Lungs: clear bilaterally Abdomen: soft, nontender, +BS Extremities: no cyanosis or clubbing; no edema Skin: warm and dry Objective Data Vital Signs Vital Signs: Vital Signs Temp Pulse Resp BP Pulse Ox O2 Del Method 11/24/23 10:00 98.3 F 73 16 128/77 99 11/24/23 09:28 70 11/24/23 04:10 99.6 F 73 16 126/66 96 11/23/23 22:00 97.7 F 74 18 101/90 95 11/23/23 20:41 98.4 F 89 18 149/61 H 100 11/23/23 20:38 98.4 F 85 18 157/96 H 97 11/23/23 20:00 98.7 F 78 18 162/68 H 98 11/23/23 20:00 Room Air 11/23/23 16:40 98.6 F 80 16 143/71 H 97 11/23/23 16:35 98.9 F 76 16 123/62 95 11/23/23 16:30 99.1 F 75 16 138/62 97 11/23/23 15:07 97.1 F L 86 16 139/71 99 Intake/Output Intake/Output: Intake & Output 11/21/23 11/22/23 11/23/23 11/24/23 23:59 23:59 23:59 23:59 Intake Total 3050.7 2100 1880 340 Output Total 2030 8496 5839 600 Balance 1020.7 -45 -469 -260 Meds/Results Medications:
[2023-11-24] MEDS: SUCRALFATE 1 GM TABLET PO ×2 (12:19→16:15)
[2023-11-24 14:00] VITALS: BP 135/62; PULSE 86; RESP 16; TEMP 36.6; O2SAT 100
[2023-11-24 18:00] VITALS: BP 145/86; PULSE 86; RESP 16; TEMP 36.4; O2SAT 98
[2023-11-24] MEDS: FERROUS SULFATE 325 MG TABLET DR BY MOUTH (20:58)
[2023-11-24] MEDS: TAMSULOSIN HCL 0.4 MG CAPSULE PO (20:58)
[2023-11-24] MEDS: FOLIC ACID 1 MG TABLET PO (20:58)
[2023-11-24] MEDS: amLODIPine BESYLATE 5 MG TABLET 10 MG PO (20:58)
[2023-11-24 21:17] VITALS: BP 148/79; PULSE 66; RESP 22; TEMP 36.8; O2SAT 97
[2023-11-25 02:00] VITALS: BP 137/70; PULSE 71; RESP 20; TEMP 37.4; O2SAT 98
[2023-11-25 02:51] VITALS: BP 132/80; BP 137/70; PULSE 71; PULSE 77; RESP 20; TEMP 37.4; O2SAT 97; O2SAT 98
[2023-11-25 02:52] VITALS: BP 132/70; PULSE 85; O2SAT 95
[2023-11-25 06:00] VITALS: BP 148/79; PULSE 64; RESP 20; TEMP 36.4; O2SAT 97
[2023-11-25 06:14] LABS: Hemoglobin 11.4 g/dL (14.0-18.0); Mean Corpuscular HGB Conc 32.6 g/dl (32-36); Mean Corpuscular Hemoglobin 30.4 pg (26-34); Mean Corpuscular Volume 93.3 fl (80-100); Mean Platelet Volume 9.8 fl (7.4-10.4); Platelet Count Result 283 k/mm3 (150-375); Red Blood Count 3.75 M/mm3 (4.6-6.20); Red Cell Distribution Width 13.3 % (11.5-14.5); White Blood Count 6.1 K/mm3 (4.5-10.0)
[2023-11-25] MEDS: oxyCODONE HCL (*CRX) 5 MG TAB IR PO ×2 (06:16→13:34)
[2023-11-25] MEDS: SUCRALFATE 1 GM TABLET PO ×2 (06:16→11:47)
[2023-11-25 06:27] LABS: Alanine Aminotransferase 80 U/L (6-50); Albumin Level 3.9 g/dL (3.5-5.1); Alkaline Phosphatase 56 U/L (38-126); Anion Gap 10 mmol/L (4-12); Aspartate Amino Transferase 79 U/L (17-59); Bilirubin,Total 0.5 mg/dL (0.2-1.3); Blood Urea Nitrogen 23 mg/dL (9-20); Calcium 9.5 mg/dL (8.4-10.2); Carbon Dioxide 22 mmol/L (22-30); Chloride 104 mmol/L (98-107); Estimated CRCL calculation 45 ml/min; Estimated Glomerular Filt Rate 47; Glucose 120 mg/dL (65-110); Potassium 4.2 mmol/L (3.4-5.0); Sodium 136 mmol/L (137-145)
[2023-11-25] MEDS: GABAPENTIN 300 MG CAPSULE PO ×2 (08:36→13:13)
[2023-11-25] MEDS: THIAMINE HCL 100 MG TABLET PO (08:36)
[2023-11-25] MEDS: PANTOPRAZOLE SODIUM IV 40 MG VIAL IV PUSH (08:37)
[2023-11-25] MEDS: HEPARIN SODIUM 5,000 UNITS/ML VIAL 5000 UNITS SUB-Q (08:37)
[2023-11-25] MEDS: LIPASE/AMYLASE/PROTEASE 12,000 UNITS CAP 6 CAP PO ×2 (08:37→11:47)
[2023-11-25 08:38] VITALS: PULSE 79
[2023-11-25] MEDS: METOPROLOL SUCCINATE EXT REL 50 MG TABCR PO (08:38)
--- NOTE | 2023-11-25 08:57 | PCNWS ---
Weekly nutritional screen. Patient is tolerating current diet with adequate intake. No weight loss reported. No nutritional needs at this time.
[2023-11-25 11:15] VITALS: BP 134/64; PULSE 68; RESP 18; TEMP 37.3; O2SAT 98
[2023-11-25] MEDS: HYDROmorphone HCL INJ (*CRX) 1 MG/ML SYR 0.5 MG IV PUSH (11:50)
--- NOTE | 2023-11-25 13:14 | PM.DS ---
DS: Admitting Diagnosis Discharge Date 11/25/23 Admitting Diagnosis nausea vomiting DS: Discharge Diagnosis Discharge Diagnosis (1) Dehydration: Code(s): E86.0 - Dehydration Status: Acute (2) Electrolyte abnormality: Code(s): E87.8 - Other disorders of electrolyte and fluid balance, not elsewhere classified Status: Acute (3) Metabolic acidosis: Code(s): E87.20 - Acidosis, unspecified Status: Acute (4) Acute kidney injury: Code(s): N17.9 - Acute kidney failure, unspecified Status: Acute (5) Hypothyroidism: Code(s): E03.9 - Hypothyroidism, unspecified Status: Acute (6) Vomiting: Code(s): R11.10 - Vomiting, unspecified Status: Acute (7) Acute hyperkalemia: Code(s): E87.5 - Hyperkalemia Status: Acute (8) Intractable nausea and vomiting: Code(s): R11.2 - Nausea with vomiting, unspecified Status: Acute DS: Summary Hospital Course Hospital Course: This is a very pleasant 68-year-old male with hypertension, dyslipidemia, hypothyroidism, gastroesophageal reflux disease, prostate cancer status post radiation, pancreatitis with pancreatic insufficiency, and other comorbidities who presented to the emergency department via EMS from home for evaluation of vomiting and left flank pain. The patient provides the following history. He has not been feeling well for several days and estimates he has vomited at least 20 times a day the last 3 days. He is now having left-sided flank pain which he thinks may be related to vomiting so much. He was afebrile on arrival with stable blood pressures. Labs were significant for a WBC count of 12.4, hemoglobin 16.7, hematocrit 51.1%, platelets 306, sodium 132, potassium 5.7, chloride 94, carbon dioxide 13, anion gap 25, BUN 50, creatinine 3.90, total protein 9.0. Urine demonstrated 1+ ketones. CT of the abdomen and pelvis was without acute findings. Chest x-ray was normal. Patient was started on IV fluids and a clear liquid diet to help with his nausea vomiting. Patient's diet was slowly advanced the next couple days in his nausea vomiting resolved. He does have known CKD and had elevated BUN and creatinine upon arrival to the ED. IV fluids were initiated. Patient's BUN and creatinine improved to baseline. He did have some RT wrist pain and swelling states he fell prior to arrival to ED, XRAY negative for fracture.? PT OT recommended rehab for the patient. He stated several days [place] until placement could be found. He was accepted at [facility]. His labs and Vital signs are stable and medically cleared for discharge at this time. Time Spent with Patient Time attestation: Total time spent providing and/or coordinating discharge services: Exam Narrative: GENERAL: Comfortable, no acute distress HENMT: moist mucous membranes EYES: EOM intact b/l NECK: no lymphadenopathy RESPIRATORY: clear to auscultation, no increased respiratory effort CARDIO: Regular rate and rhythm GI: soft, nontender, bowel sounds present SKIN/EXTREMITIES: no rashes, no edema, no redness or tenderness NEURO: PROM intact, answers questions appropriately, A&O x4 DS: Data Data Completed and Pending Labs on day of discharge: Labs from last 24 hours 11/25/23 06:04 WBC 6.1 RBC 3.75 L Hgb 11.4 L Hct 35.0 L MCV 93.3 MCH 30.4 MCHC 32.6 RDW 13.3 Plt Count 283 MPV 9.8 Sodium 136 L Potassium 4.2 Chloride 104 Carbon Dioxide 22 Anion Gap 10 BUN 23 H Creatinine 1.50 H Estim Creat Clear Calc 45 Estimated GFR 47 L Glucose 120 H Calcium 9.5 Total Bilirubin 0.5 AST 79 H ALT 80 H Alkaline Phosphatase 56 Total Protein 7.0 Albumin 3.9 Discharge Plan Discharge Attending physician on discharge: Sunita Whitfield Consulting providers: Everardo Rubio; Drew Ridley Discharging Clinician: Mi Correa Patient Disposition: Hospi
== END 2023-11-25 16:44 | disposition swing bed (61) | DRG 683 ==
LOC: ANHED 16:40 → ANH2MED 18:44 → ANH3MEDSUR 11-25 13:17 → ANH2MED 11-26 16:01 → ANH3MEDSUR 11-26 16:01
PROVIDERS: Internal Medicine Nephrology; Nurse Practitioner Family; Physician Assistant; Student in an Organized Health Care Education/Training Program; Admitting Provider Hospitalist; Emergency Provider Emergency Medicine; Visit Provider Student in an Organized Health Care Education/Training Program
DX: N17.9 Acute kidney failure, unspecified (principal); E87.20 Acidosis, unspecified; E86.0 Dehydration; E87.5 Hyperkalemia; I12.9 Hypertensive chronic kidney disease with stage 1 through stage 4 chronic kidney disease, or unspecified chronic kidney disease; N18.31 Chronic kidney disease, stage 3a; N40.1 Benign prostatic hyperplasia with lower urinary tract symptoms; R35.1 Nocturia; R35.0 Frequency of micturition; R11.2 Nausea with vomiting, unspecified; E03.9 Hypothyroidism, unspecified; E78.5 Hyperlipidemia, unspecified; K57.30 Diverticulosis of large intestine without perforation or abscess without bleeding; K21.9 Gastro-esophageal reflux disease without esophagitis; K44.9 Diaphragmatic hernia without obstruction or gangrene; K29.70 Gastritis, unspecified, without bleeding; K86.81 Exocrine pancreatic insufficiency; R53.1 Weakness; M25.531 Pain in right wrist; Z20.822 Contact with and (suspected) exposure to COVID-19; Z91.81 History of falling; Z85.46 Personal history of malignant neoplasm of prostate; Z86.010 Personal history of colon polyps
CPT/HCPCS: 36415; 71045; 73100; 74176; 76775; 80048; 80053; 80307; 81003; 82010; 82436; 82550; 82570; 82803; 83036; 83605; 83690; 83735; 83930; 83935; 84100; 84133; 84156; 84300; 85025; 85027; 85652; 85999; 86140; 86160; 87637; 93005; 96361; 96372; 96374; 96375; 96376; 97110; 97116; 97161; 97166; 97530; 97535; 99285; A9270; C9113; G0378; J1170; J1644; J2405; J7030

== ENCOUNTER 2023-11-25 17:21 | Inpatient (IN) | payer MEDICARE, MEDICAID, SELFPAY ==
[2023-11-25 17:36] VITALS: BP 131/72; PULSE 76; RESP 18; TEMP 36.7; O2SAT 95
[2023-11-25 17:39] VITALS: BMI 24.0
[2023-11-25 17:52] VITALS: BP 131/72; PULSE 76; RESP 18; TEMP 36.7; O2SAT 95; BMI 24.0
--- NOTE | 2023-11-25 18:09 | ADMGEN ---
1725 his patient, Jorge A Schmitz, was admitted to 2nd Floor Room 205-1. here for ssb due to weakness. Patient/family oriented to hospital policies and general routines including ID bracelet, bed and alarms, visiting hours, pain management, procedures, bathroom and other care routines, personal items, smoking policy, room service/diet, and visiting hours. Information on how to activate the Rapid Response Team has been discussed. Patient/Family are encouraged to report perceived risks to care and to ask questions if they do not understand what they are told or what they should do.
[2023-11-25] MEDS: HYDROcodone/acetaminophen (*CRX) 5-325 MG TABLET 1 TAB PO (20:52)
[2023-11-25] MEDS: GABAPENTIN 300 MG CAPSULE PO (20:52)
[2023-11-25] MEDS: FERROUS SULFATE 325 MG TABLET DR PO (20:52)
[2023-11-25] MEDS: ATORVASTATIN 10 MG TABLET 20 MG PO (20:52)
[2023-11-25] MEDS: MIRABEGRON 25 MG ER TABLET 50 MG PO (20:52)
[2023-11-25] MEDS: amLODIPine BESYLATE 5 MG TABLET 10 MG PO (20:53)
[2023-11-25] MEDS: TAMSULOSIN HCL 0.4 MG CAPSULE PO (20:53)
[2023-11-25] MEDS: SUCRALFATE 1 GM TABLET PO (20:53)
[2023-11-25] MEDS: FOLIC ACID 1 MG TABLET PO (20:53)
[2023-11-26] VITALS: BP 145/80; PULSE 73; RESP 16; TEMP 36.7; O2SAT 96
--- NOTE | 2023-11-26 00:40 | PC.NURSE ---
Pt called to nurses station to complain that the person in the next room overs tv was to loud and that he could not sleep. Assured pt that this nurse would ask the other patient if he can turn his tv down. Before this nurse could get to the other patients room, the patient is 205 started screaming at the top of his lungs. This nurse went into 205 to see what was wrong and the patient started yelling to me that he couldn't sleep because the other rooms tv is to loud. This nurse again stated that I could ask if the other patient would turn tv down. Patient then started to tell me that he should not have came here and he may call a ride to pick him up tomorrow even though he cant walk. This nurse was able to get the tv turned down to a reasonable level.
--- NOTE | 2023-11-26 00:43 | PC.NURSE ---
Was called back to pts room and asked he when he was able to have another pain pill. Made pt aware that it was as needed every 6 hours. Pt stated every 6 hours ? I have a headache and cannot sleep. This nurse then offered pt the PRN acetaminophen to which patient replied he can't take that. Pt has no allergies noted. Pt stated that acetaminophen does nothing and he does not take it because he has a bad liver. Offered to call CLAY DRY PRESS OPERATOR to see about ibuprophen to which patient stated I don't take that either because I have bad kidneys. Patient being very rude to staff this shift. Keeps stated he should have never came here and he may leave tomorrow.
--- NOTE | 2023-11-26 01:13 | PC.NURSE ---
Charge nurse answered the call light to see what patient needed now. Pt stated he needed his water jug refilled. Charge nurse stated patient was rude to her also. Asking charge nurse for pain meds after this nurse had already talked to him about it. He stated all he needs is pain medication and all they want to give me if fucking tylenol. Charge nurse reiterated that until NICKING MACHINE OPERATOR sees him in the morning he will not order anything stronger for pain. Charge nurse fulfilled his needs at the time and left the room. Patients calls and this nurse answered. Patient told nurse to close his door and don't fucking wake him up again.
[2023-11-26] MEDS: HYDROcodone/acetaminophen (*CRX) 5-325 MG TABLET 1 TAB PO (02:54)
--- NOTE | 2023-11-26 07:25 | PM.IMHP ---
H&P: HPI History of Present Illness Date/Time: 11/26/23 07:25 Chief Complaint: Skilled swing bed for unable to walk/generalized weakness Narrative: This is a 68-year-old male patient past history hypertension hyperlipidemia pancreatitis pancreatic insufficiency prostate cancer hypothyroidism GERD arthritis alcohol abuse who was admitted to [facility] due to intractable nausea vomiting with resultant dehydration hyperkalemia and metabolic acidosis. Patient reports vomiting for 4 days before he called an ambulance to take him to the hospital. He notes that the weakness after the vomiting has prevented him from ambulating as normal. Thus, patient is requiring rehabilitation. Multiple facilities refused to accept patient. [place] and does not have a set home, usually lives out of hotels. Currently patient is complaining of severe right wrist pain which is chronic. He had a prior surgery ORIF right wrist in 2021 at [facility]. Patient reports that when he does not get adequate narcotic pain medication he gets extremely irritable, mentally foggy and physically shakes. Overnight last night patient became very irritable regarding allowed television next door and proceeded to herself the nurses several times. He also complained about inadequate pain control. It was reported that patient could ambulate with some assistance but on arrival here patient reports he cannot stand cannot ambulate has to use Kathy Steady for all movement. PT and OT have been ordered. Bedside discussion with myself, nursing home manager and rn case management to inform the patient that we will not tolerate verbal abuse from patient. We informed him we will move rooms so he is not next door to somebody with allowed television and we will restart oxycodone 5 mg q.4 hours p.r.n. as he had availability at [place] for such. At that time patient still became upset stating that he used to get larger doses oxycodone and he does not understand why we will not treat his pain adequately. Patient repeatedly stated that he wished we would just let him go be discharged instead of be hospitalized. I informed the patient several times that any time he wanted to leave whether it was immediately, later today or in the middle of the night 3 days from we would not force him to stay in hospital and would allow him to leave/be discharged at any time. Patient did not reply to this offer for discharge but later told his nurse when getting morning medication that he wished we could just discharge him. Review of Systems Review of Systems: All systems reviewed & are unremarkable except as noted in HPI and below Musculoskeletal: Comments: right wrist pain, back pain Psychiatric: Comments: reports shaking and mental cloudiness whenever he does get narcotic pain medication [facility] Past Medical History Medical History (Updated 11/26/23 @ 09:38 by Justin Ellington APRN) Adenomatous colon polyp Arthritis Atherosclerosis Extensive atherosclerosis noted on abdominal CT taken 11/17/2023. Diverticulosis Gastroesophageal reflux disease Generalized weakness Hyperlipidemia Hypertension Hypothyroidism Pancreatic insufficiency Pancreatitis Prostate cancer Skin cancer Surgical History Surgical History (Updated 11/17/23 @ 22:43 by Barb Casiano PA-C) History of appendectomy History of colonoscopy with polypectomy History of open reduction and internal fixation (ORIF) procedure Left 8 rib fracture. History of plastic surgery Multiple surgeries of the face and scalp including resection of both basal and squamous cell carcinomas with reconstruction. History of tonsillectomy Family History Family History Father Lung cancer Social History Social History Social History: Surrogate medical decision maker: Er
[2023-11-26 08:00] VITALS: BP 138/75; PULSE 81; RESP 17; TEMP 36.4; O2SAT 96
--- NOTE | 2023-11-26 08:30 | PC.NURSE ---
Discussed therapy bed with patient, advised to alert nurse manager utilities if concerns regarding nursing care, advised that due to loud TV so close to his room we will move him after breakfast, advised that diet changed to regular diet and pain medication changed back to 5mg oxycodone every 4 hours as needed as he was getting at [facility], patient calm, cooperative and agreeable
[2023-11-26 09:36] VITALS: PULSE 81
[2023-11-26] MEDS: THIAMINE HCL 100 MG TABLET PO (09:36)
[2023-11-26] MEDS: GABAPENTIN 300 MG CAPSULE PO ×3 (09:36→17:52)
[2023-11-26] MEDS: oxyBUTYnin CHLORIDE XL 5 MG TAB.ER.24 10 MG PO (09:36)
[2023-11-26] MEDS: PANTOPRAZOLE 40 MG TABLET PO (09:36)
[2023-11-26] MEDS: METOPROLOL SUCCINATE EXT REL 50 MG TABCR PO (09:36)
[2023-11-26] MEDS: oxyCODONE HCL (*CRX) 5 MG TAB IR PO ×4 (09:37→22:33)
[2023-11-26] MEDS: SUCRALFATE 1 GM TABLET PO ×2 (11:35→16:37)
[2023-11-26] MEDS: LIPASE/AMYLASE/PROTEASE 12,000 UNITS CAP 6 CAP PO ×2 (13:30→17:52)
[2023-11-26 16:00] VITALS: BP 132/74; PULSE 81; RESP 16; TEMP 36.2; O2SAT 95
[2023-11-26] MEDS: ATORVASTATIN 10 MG TABLET 20 MG PO (20:51)
[2023-11-26] MEDS: FERROUS SULFATE 325 MG TABLET DR PO (20:52)
[2023-11-26] MEDS: amLODIPine BESYLATE 5 MG TABLET 10 MG PO (20:52)
[2023-11-26] MEDS: FOLIC ACID 1 MG TABLET PO (20:52)
[2023-11-26] MEDS: MIRABEGRON 25 MG ER TABLET 50 MG PO (20:52)
[2023-11-26] MEDS: TAMSULOSIN HCL 0.4 MG CAPSULE PO (20:52)
[2023-11-27] VITALS: BP 140/70; PULSE 65; RESP 16; TEMP 36.4; O2SAT 96
[2023-11-27] MEDS: oxyCODONE HCL (*CRX) 5 MG TAB IR PO ×4 (04:07→20:28)
[2023-11-27] MEDS: SUCRALFATE 1 GM TABLET PO ×3 (07:45→16:48)
--- NOTE | 2023-11-27 07:55 | PC.NURSE ---
Pt was setup with water to wash face and brush teeth while in the bed. Pt refused to sit at bedside. Pt had multiple complaints including I won't use baby soap, I need real soap . Also upset that dietary insists on him having his tray set up when he is in the room. It was explained to him that baby soap was wheat we had to offer and that dietary wanted him to eat because he was adamant that his food be served very hot. Pt was left to address his hygiene needs independently. A few minutes later upon returning to room, patient had pushed the bedside table across the room approximately 4 feet. His water jug was laying on floor with ice and water covering the floor. Pt denied pushing the table across the room. Charge nurse was outside room while conversation occurred. Pt gave multiple excuses of how the mess happened. Charge nurse entered the room and assisted with cleanup. Pt was set up with breakfast tray.
[2023-11-27 08:00] VITALS: BP 129/42; PULSE 86; RESP 17; TEMP 37.2; O2SAT 95
[2023-11-27] MEDS: LIPASE/AMYLASE/PROTEASE 12,000 UNITS CAP 6 CAP PO ×3 (08:49→16:48)
[2023-11-27 08:50] VITALS: PULSE 86
[2023-11-27] MEDS: METOPROLOL SUCCINATE EXT REL 50 MG TABCR PO (08:50)
[2023-11-27] MEDS: oxyBUTYnin CHLORIDE XL 5 MG TAB.ER.24 10 MG PO (08:50)
[2023-11-27] MEDS: GABAPENTIN 300 MG CAPSULE PO ×3 (08:50→16:48)
[2023-11-27] MEDS: PANTOPRAZOLE 40 MG TABLET PO (08:50)
[2023-11-27] MEDS: THIAMINE HCL 100 MG TABLET PO (08:50)
--- NOTE | 2023-11-27 09:17 | PM.EVENT ---
Event Note Event Note Event Note: Discussed with Patient about the medication he wants to take patient wants to take hctz, Lisinapril, niacinamide, hydrocortisone ointment, doxy. I discussed with stefani as to why he was sent from the other hosptial without these medication. patient informed me because it affected his kidney function. I then discussed well your blood pressure is doing well so I am not sure that I would be willing to restart the medication when we know it affects your kidney . Patient informs me why would i go against his primary care provider. I explained that his primary care provider does not know it is affecting his kidney . Patient would like to try his blood pressure medication . Patient would like to be put on his medication . I informed patient i would try 1 but not both and at this time he is ok with this but not happy. We will recheck labs in the morning.
[2023-11-27] MEDS: lisinopriL 10 MG TABLET PO (11:49)
[2023-11-27] MEDS: DOXYCYCLINE HYCLATE 100 MG TABLET PO ×2 (11:49→20:26)
[2023-11-27] MEDS: TRIAMCINOLONE ACET 0.1% OINT 80 GM TUBE 1 APPLIC TOPICAL ×3 (11:50→20:30)
--- NOTE | 2023-11-27 14:20 | PC.NURSE ---
OT at the desk reports to nurse that pt is sitting on bedside and has been setup with bathing supplies. She stated she has washed his back already, but he had called out with the call light requesting someone to wash his back. Upon entering the room, pt had complaints about not getting his back washed. It was explained that OT reported that it had been done. PT demanded razors and some rinse water. Pt had multiple complaints and demands while in the room. Pt was given all supplies he needed to complete hygiene.
[2023-11-27 16:00] VITALS: BP 133/72; PULSE 66; RESP 16; TEMP 36.4; O2SAT 95
[2023-11-27 20:00] VITALS: PULSE 62; RESP 18; O2SAT 95
[2023-11-27] MEDS: MIRABEGRON 25 MG ER TABLET 50 MG PO (20:26)
[2023-11-27] MEDS: FOLIC ACID 1 MG TABLET PO (20:27)
[2023-11-27] MEDS: TAMSULOSIN HCL 0.4 MG CAPSULE PO (20:27)
[2023-11-27] MEDS: FERROUS SULFATE 325 MG TABLET DR PO (20:27)
[2023-11-27] MEDS: ATORVASTATIN 10 MG TABLET 20 MG PO (20:27)
[2023-11-27] MEDS: amLODIPine BESYLATE 5 MG TABLET 10 MG PO (20:28)
[2023-11-28] VITALS: BP 130/69; PULSE 62; RESP 18; TEMP 36.6; O2SAT 95
--- NOTE | 2023-11-28 00:30 | PC.NURSE ---
Pt awake and calling for ice cream to eat c his cake. Pt given orange sherbet per request. Pt watching TV at this time and has some c/o pain in his wrist again. Noted wrist splint is removed, another bag of cold ice given to pt. Call alas at side.
[2023-11-28] MEDS: oxyCODONE HCL (*CRX) 5 MG TAB IR PO ×5 (01:08→23:30)
[2023-11-28 05:17] LABS: Hematocrit 34.8 % (37.0-46.0); Hemoglobin 11.6 g/dL (12.4-15.3); Mean Corpuscular HGB Conc 33.3 g/dL (32-36); Mean Corpuscular Volume 89.9 fL (78.0-102.0); Mean Platelet Volume 9.1 fl (8.7-11.0); Platelet Count Result 403 K/mm3 (150-420); Red Blood Count 3.87 M/mm3 (4.70-6.10); Red Cell Distribution Width 13.1 % (11.6-14.4); White Blood Count 6.7 K/mm3 (4.8-10.8)
[2023-11-28 05:27] LABS: Anion Gap 9 mmol/L (4-12); Blood Urea Nitrogen 30 mg/dL (7-18); Calcium 9.4 mg/dL (8.5-10.1); Carbon Dioxide 28 mmol/L (21-32); Chloride 99 mmol/L (98-108); Estimated CRCL calculation 38 ml/min; Estimated Glomerular Filt Rate 38; Glucose 118 mg/dL (70-99); Osmolality Calculated 289 mOsm/kg (285-295); Potassium 4.4 mmol/L (3.5-5.1); Sodium 136 mmol/L (136-145)
[2023-11-28] MEDS: SUCRALFATE 1 GM TABLET PO ×3 (07:42→16:43)
[2023-11-28 08:00] VITALS: BP 126/63; PULSE 97; RESP 16; TEMP 36.8; O2SAT 97
--- NOTE | 2023-11-28 09:04 | PM.EVENT ---
Event Note Event Note Event Note: Patient is complaining that we are not ordering his hydrocortisone ointment as yesterday I had a long conversation to inform him we only had the cream he did not want it. I informed him we had the tricinamolone ointment and that is what he wanted. He also continue to inform me he does not feel like he needs to be here and that he is strong enough and we are having him use the bedside commode and not walking to the bathroom and he has been washed up but he is wanting a shower. I did explain to patient once he get stronger and able to tolerate we would be more than happy. if he was to leave it would be ama
[2023-11-28] MEDS: LIPASE/AMYLASE/PROTEASE 12,000 UNITS CAP 6 CAP PO ×3 (09:59→16:43)
[2023-11-28 10:00] VITALS: PULSE 59
[2023-11-28] MEDS: PANTOPRAZOLE 40 MG TABLET PO (10:00)
[2023-11-28] MEDS: THIAMINE HCL 100 MG TABLET PO (10:00)
[2023-11-28] MEDS: METOPROLOL SUCCINATE EXT REL 50 MG TABCR PO (10:00)
[2023-11-28] MEDS: DOXYCYCLINE HYCLATE 100 MG TABLET PO ×2 (10:00→20:33)
[2023-11-28] MEDS: GABAPENTIN 300 MG CAPSULE PO ×3 (10:00→16:43)
[2023-11-28] MEDS: lisinopriL 10 MG TABLET PO (10:00)
[2023-11-28] MEDS: oxyBUTYnin CHLORIDE XL 5 MG TAB.ER.24 10 MG PO (10:00)
[2023-11-28 16:00] VITALS: BP 120/60; PULSE 60; RESP 16; TEMP 36.9; O2SAT 93
[2023-11-28] MEDS: TRIAMCINOLONE ACET 0.1% OINT 80 GM TUBE 1 APPLIC TOPICAL (17:05)
[2023-11-28] MEDS: ATORVASTATIN 10 MG TABLET 20 MG PO (20:33)
[2023-11-28] MEDS: FOLIC ACID 1 MG TABLET PO (20:33)
[2023-11-28] MEDS: MIRABEGRON 25 MG ER TABLET 50 MG PO (20:33)
[2023-11-28] MEDS: amLODIPine BESYLATE 5 MG TABLET 10 MG PO (20:33)
[2023-11-28] MEDS: FERROUS SULFATE 325 MG TABLET DR PO (20:33)
[2023-11-28] MEDS: TAMSULOSIN HCL 0.4 MG CAPSULE PO (20:33)
[2023-11-29] VITALS: BP 133/73; PULSE 76; RESP 16; TEMP 36.8; O2SAT 96
[2023-11-29] MEDS: oxyCODONE HCL (*CRX) 5 MG TAB IR PO ×4 (06:06→20:55)
[2023-11-29] MEDS: SUCRALFATE 1 GM TABLET PO ×3 (07:38→17:02)
[2023-11-29 07:44] VITALS: BP 132/72; PULSE 62; RESP 20; TEMP 36.6; O2SAT 97
[2023-11-29 08:00] VITALS: PULSE 72; RESP 20; O2SAT 97
[2023-11-29] MEDS: oxyBUTYnin CHLORIDE XL 5 MG TAB.ER.24 10 MG PO (08:57)
[2023-11-29] MEDS: PSYLLIUM POWDER PACKET 1 PACKET PO ×2 (08:57→20:54)
[2023-11-29] MEDS: LIPASE/AMYLASE/PROTEASE 12,000 UNITS CAP 6 CAP PO ×3 (08:57→17:02)
[2023-11-29 08:58] VITALS: PULSE 75
[2023-11-29] MEDS: THIAMINE HCL 100 MG TABLET PO (08:58)
[2023-11-29] MEDS: lisinopriL 10 MG TABLET PO (08:58)
[2023-11-29] MEDS: DOXYCYCLINE HYCLATE 100 MG TABLET PO ×2 (08:58→20:55)
[2023-11-29] MEDS: TRIAMCINOLONE ACET 0.1% OINT 80 GM TUBE 1 APPLIC TOPICAL ×2 (08:58→17:02)
[2023-11-29] MEDS: PANTOPRAZOLE 40 MG TABLET PO (08:58)
[2023-11-29] MEDS: GABAPENTIN 300 MG CAPSULE PO ×3 (08:58→17:02)
[2023-11-29] MEDS: METOPROLOL SUCCINATE EXT REL 50 MG TABCR PO (08:58)
--- NOTE | 2023-11-29 10:15 | PC.NURSE ---
Took pt for long walk in hallway, pt tolerated well and back to bed. SBA walk in hallway c gait and pts cane. He c/o some pain increasing in his Rt wrist upon arrival back to room. Pt given pain med as per order.
[2023-11-29 15:39] VITALS: BP 126/64; PULSE 68; RESP 18; TEMP 36.6; O2SAT 95
[2023-11-29] MEDS: TAMSULOSIN HCL 0.4 MG CAPSULE PO (20:54)
[2023-11-29] MEDS: ATORVASTATIN 10 MG TABLET 20 MG PO (20:54)
[2023-11-29] MEDS: MIRABEGRON 25 MG ER TABLET 50 MG PO (20:54)
[2023-11-29] MEDS: amLODIPine BESYLATE 5 MG TABLET 10 MG PO (20:55)
[2023-11-29] MEDS: FERROUS SULFATE 325 MG TABLET DR PO (20:55)
[2023-11-29] MEDS: FOLIC ACID 1 MG TABLET PO (20:55)
[2023-11-30] VITALS: BP 122/64; PULSE 64; RESP 16; TEMP 36.6; O2SAT 94
[2023-11-30] MEDS: oxyCODONE HCL (*CRX) 5 MG TAB IR PO ×4 (04:07→19:00)
[2023-11-30] MEDS: SUCRALFATE 1 GM TABLET PO ×3 (07:41→16:31)
[2023-11-30 08:00] VITALS: BP 122/62; PULSE 63; RESP 20; TEMP 36.5; O2SAT 96
[2023-11-30] MEDS: LIPASE/AMYLASE/PROTEASE 12,000 UNITS CAP 6 CAP PO ×3 (08:47→17:59)
[2023-11-30] MEDS: PSYLLIUM POWDER PACKET 1 PACKET PO ×2 (08:47→20:26)
[2023-11-30 08:48] VITALS: PULSE 83
[2023-11-30] MEDS: PANTOPRAZOLE 40 MG TABLET PO (08:48)
[2023-11-30] MEDS: lisinopriL 10 MG TABLET PO (08:48)
[2023-11-30] MEDS: DOXYCYCLINE HYCLATE 100 MG TABLET PO ×2 (08:48→20:28)
[2023-11-30] MEDS: oxyBUTYnin CHLORIDE XL 5 MG TAB.ER.24 10 MG PO (08:48)
[2023-11-30] MEDS: THIAMINE HCL 100 MG TABLET PO (08:48)
[2023-11-30] MEDS: GABAPENTIN 300 MG CAPSULE PO ×3 (08:48→17:59)
[2023-11-30] MEDS: METOPROLOL SUCCINATE EXT REL 50 MG TABCR PO (08:48)
[2023-11-30] MEDS: TRIAMCINOLONE ACET 0.1% OINT 80 GM TUBE 1 APPLIC TOPICAL ×2 (08:51→17:59)
[2023-11-30 16:00] VITALS: BP 128/63; PULSE 67; RESP 18; TEMP 36.6; O2SAT 94
[2023-11-30] MEDS: amLODIPine BESYLATE 5 MG TABLET 10 MG PO (20:26)
[2023-11-30] MEDS: TAMSULOSIN HCL 0.4 MG CAPSULE PO (20:27)
[2023-11-30] MEDS: ATORVASTATIN 10 MG TABLET 20 MG PO (20:27)
[2023-11-30] MEDS: MIRABEGRON 25 MG ER TABLET 50 MG PO (20:27)
[2023-11-30] MEDS: FOLIC ACID 1 MG TABLET PO (20:28)
[2023-11-30] MEDS: FERROUS SULFATE 325 MG TABLET DR PO (20:28)
[2023-11-30] MEDS: oxyCODONE HCL (*CRX) 5 MG TAB IR 10 MG PO (23:26)
[2023-12-01] VITALS: BP 138/72; PULSE 67; RESP 16; TEMP 36.6; O2SAT 95
[2023-12-01] MEDS: oxyCODONE HCL (*CRX) 5 MG TAB IR PO ×2 (07:28→09:27)
[2023-12-01] MEDS: SUCRALFATE 1 GM TABLET PO ×3 (07:28→17:03)
[2023-12-01 08:00] VITALS: BP 117/61; PULSE 73; RESP 17; TEMP 36.3; O2SAT 96
--- NOTE | 2023-12-01 08:26 | PM.EVENT ---
Event Note Event Note Event Note: Patient dose has been increased to 10mg oxycodone q6 hours prn at home he had it ordered Q4 hours prn .
[2023-12-01] MEDS: lisinopriL 10 MG TABLET PO (09:27)
[2023-12-01] MEDS: LIPASE/AMYLASE/PROTEASE 12,000 UNITS CAP 6 CAP PO ×3 (09:27→17:03)
[2023-12-01 09:28] VITALS: PULSE 73
[2023-12-01] MEDS: PANTOPRAZOLE 40 MG TABLET PO (09:28)
[2023-12-01] MEDS: DOXYCYCLINE HYCLATE 100 MG TABLET PO ×2 (09:28→20:46)
[2023-12-01] MEDS: oxyBUTYnin CHLORIDE XL 5 MG TAB.ER.24 10 MG PO (09:28)
[2023-12-01] MEDS: METOPROLOL SUCCINATE EXT REL 50 MG TABCR PO (09:28)
[2023-12-01] MEDS: THIAMINE HCL 100 MG TABLET PO (09:28)
[2023-12-01] MEDS: GABAPENTIN 300 MG CAPSULE PO ×3 (09:28→17:03)
[2023-12-01] MEDS: PSYLLIUM POWDER PACKET 1 PACKET PO ×2 (09:30→20:47)
[2023-12-01] MEDS: oxyCODONE HCL (*CRX) 5 MG TAB IR 10 MG PO ×2 (14:40→20:44)
[2023-12-01 16:00] VITALS: BP 138/61; PULSE 80; RESP 17; TEMP 36.3; O2SAT 96
[2023-12-01] MEDS: amLODIPine BESYLATE 5 MG TABLET 10 MG PO (20:46)
[2023-12-01] MEDS: ATORVASTATIN 10 MG TABLET 20 MG PO (20:46)
[2023-12-01] MEDS: FOLIC ACID 1 MG TABLET PO (20:47)
[2023-12-01] MEDS: MIRABEGRON 25 MG ER TABLET 50 MG PO (20:47)
[2023-12-01] MEDS: FERROUS SULFATE 325 MG TABLET DR PO (20:47)
[2023-12-01] MEDS: TAMSULOSIN HCL 0.4 MG CAPSULE PO (20:47)
[2023-12-02] VITALS: BP 128/74; PULSE 79; RESP 20; TEMP 36.2; O2SAT 91
[2023-12-02] MEDS: oxyCODONE HCL (*CRX) 5 MG TAB IR 10 MG PO ×4 (04:35→23:35)
[2023-12-02] MEDS: SUCRALFATE 1 GM TABLET PO ×3 (07:51→16:58)
[2023-12-02 08:00] VITALS: BP 135/74; PULSE 86; RESP 17; TEMP 36.1; O2SAT 94
[2023-12-02 10:13] VITALS: PULSE 84
[2023-12-02] MEDS: METOPROLOL SUCCINATE EXT REL 50 MG TABCR PO (10:13)
[2023-12-02] MEDS: PSYLLIUM POWDER PACKET 1 PACKET PO ×2 (10:13→21:35)
[2023-12-02] MEDS: DOXYCYCLINE HYCLATE 100 MG TABLET PO ×2 (10:13→21:40)
[2023-12-02] MEDS: LIPASE/AMYLASE/PROTEASE 12,000 UNITS CAP 6 CAP PO ×3 (10:13→16:58)
[2023-12-02] MEDS: GABAPENTIN 300 MG CAPSULE PO ×3 (10:13→16:58)
[2023-12-02] MEDS: PANTOPRAZOLE 40 MG TABLET PO (10:14)
[2023-12-02] MEDS: lisinopriL 10 MG TABLET PO (10:14)
[2023-12-02] MEDS: THIAMINE HCL 100 MG TABLET PO (10:14)
[2023-12-02] MEDS: oxyBUTYnin CHLORIDE XL 5 MG TAB.ER.24 10 MG PO (10:14)
[2023-12-02 16:00] VITALS: BP 129/80; PULSE 74; RESP 17; TEMP 35.7; O2SAT 98
[2023-12-02] MEDS: TAMSULOSIN HCL 0.4 MG CAPSULE PO (21:34)
[2023-12-02] MEDS: FOLIC ACID 1 MG TABLET PO (21:34)
[2023-12-02] MEDS: amLODIPine BESYLATE 5 MG TABLET 10 MG PO (21:34)
[2023-12-02] MEDS: FERROUS SULFATE 325 MG TABLET DR PO (21:34)
[2023-12-02] MEDS: ATORVASTATIN 10 MG TABLET 20 MG PO (21:35)
[2023-12-03] VITALS: BP 138/71; PULSE 60; RESP 16; TEMP 36.4; O2SAT 94
[2023-12-03] MEDS: oxyCODONE HCL (*CRX) 5 MG TAB IR 10 MG PO ×3 (06:02→19:10)
[2023-12-03 08:00] VITALS: BP 125/75; PULSE 85; RESP 18; TEMP 36.4; O2SAT 97
[2023-12-03] MEDS: PSYLLIUM POWDER PACKET 1 PACKET PO ×2 (09:03→21:16)
[2023-12-03] MEDS: LIPASE/AMYLASE/PROTEASE 12,000 UNITS CAP 6 CAP PO ×3 (09:05→16:55)
[2023-12-03] MEDS: THIAMINE HCL 100 MG TABLET PO (09:06)
[2023-12-03] MEDS: GABAPENTIN 300 MG CAPSULE PO ×3 (09:06→16:55)
[2023-12-03 09:07] VITALS: PULSE 85
[2023-12-03] MEDS: METOPROLOL SUCCINATE EXT REL 50 MG TABCR PO (09:07)
[2023-12-03] MEDS: oxyBUTYnin CHLORIDE XL 5 MG TAB.ER.24 10 MG PO (09:07)
[2023-12-03] MEDS: DOXYCYCLINE HYCLATE 100 MG TABLET PO ×2 (09:07→21:16)
[2023-12-03] MEDS: PANTOPRAZOLE 40 MG TABLET PO (09:08)
[2023-12-03] MEDS: lisinopriL 10 MG TABLET PO (09:08)
[2023-12-03] MEDS: SUCRALFATE 1 GM TABLET PO ×2 (11:25→16:31)
[2023-12-03 16:00] VITALS: BP 135/64; PULSE 60; RESP 16; TEMP 36.3; O2SAT 95
[2023-12-03] MEDS: amLODIPine BESYLATE 5 MG TABLET 10 MG PO (21:15)
[2023-12-03] MEDS: FOLIC ACID 1 MG TABLET PO (21:16)
[2023-12-03] MEDS: ATORVASTATIN 10 MG TABLET 20 MG PO (21:16)
[2023-12-03] MEDS: TAMSULOSIN HCL 0.4 MG CAPSULE PO (21:16)
[2023-12-03] MEDS: MIRABEGRON 25 MG ER TABLET 50 MG PO (21:16)
[2023-12-03] MEDS: FERROUS SULFATE 325 MG TABLET DR PO (21:16)
[2023-12-03 23:55] VITALS: BP 140/71; PULSE 65; RESP 18; TEMP 36.6; O2SAT 97
[2023-12-04] MEDS: oxyCODONE HCL (*CRX) 5 MG TAB IR 10 MG PO ×4 (02:00→21:50)
[2023-12-04 05:44] LABS: Hematocrit 34.8 % (37.0-46.0); Hemoglobin 12.1 g/dL (12.4-15.3); Mean Corpuscular HGB Conc 34.8 g/dL (32-36); Mean Corpuscular Hemoglobin 30.6 pg (27.0-31.0); Mean Corpuscular Volume 87.9 fL (78.0-102.0); Mean Platelet Volume 9.7 fl (8.7-11.0); Platelet Count Result 343 K/mm3 (150-420); Red Blood Count 3.96 M/mm3 (4.70-6.10); White Blood Count 6.7 K/mm3 (4.8-10.8)
[2023-12-04 05:58] LABS: Anion Gap 9 mmol/L (4-12); Blood Urea Nitrogen 33 mg/dL (7-18); Calcium 9.7 mg/dL (8.5-10.1); Carbon Dioxide 26 mmol/L (21-32); Chloride 101 mmol/L (98-108); Estimated CRCL calculation 45 ml/min; Estimated Glomerular Filt Rate 47; Glucose 116 mg/dL (70-99); Osmolality Calculated 290 mOsm/kg (285-295); Potassium 4.6 mmol/L (3.5-5.1); Sodium 136 mmol/L (136-145)
[2023-12-04] MEDS: SUCRALFATE 1 GM TABLET PO ×3 (07:38→16:37)
[2023-12-04 08:00] VITALS: BP 135/63; PULSE 60; RESP 16; TEMP 36.5; O2SAT 95
[2023-12-04] MEDS: LIPASE/AMYLASE/PROTEASE 12,000 UNITS CAP 6 CAP PO ×2 (09:10→12:48)
[2023-12-04] MEDS: oxyBUTYnin CHLORIDE XL 5 MG TAB.ER.24 10 MG PO (09:11)
[2023-12-04 09:12] VITALS: PULSE 60
[2023-12-04] MEDS: METOPROLOL SUCCINATE EXT REL 50 MG TABCR PO (09:12)
[2023-12-04] MEDS: GABAPENTIN 300 MG CAPSULE PO ×2 (09:13→12:49)
[2023-12-04] MEDS: DOXYCYCLINE HYCLATE 100 MG TABLET PO ×2 (09:13→20:48)
[2023-12-04] MEDS: PANTOPRAZOLE 40 MG TABLET PO (09:13)
[2023-12-04] MEDS: THIAMINE HCL 100 MG TABLET PO (09:13)
[2023-12-04] MEDS: lisinopriL 10 MG TABLET PO (09:13)
[2023-12-04] MEDS: TRIAMCINOLONE ACET 0.1% OINT 80 GM TUBE 1 APPLIC TOPICAL (09:14)
[2023-12-04] MEDS: PSYLLIUM POWDER PACKET 1 PACKET PO ×2 (09:14→20:47)
[2023-12-04 16:00] VITALS: BP 118/61; PULSE 62; RESP 16; TEMP 36.5; O2SAT 93
--- NOTE | 2023-12-04 17:39 | PC.NURSE ---
Patient refused his medication at 1700 med pass due to him suddenly deciding that medication administration was too close together. Chief Design Engineer attempted briefly to explain that medication administration was at appropriate intervals and patient interrupted and insisted that his doctor dictated that his medication could only be given 6 to 8 hours apart. Chief Design Engineer asked patient one last time if he wanted his medication and patient stated that he wanted it at bedtime. Nurse explained that it was not ordered at that time and we can not give medication out of the timeframe it is ordered. Patient stated that he didn't want it. Nurse left the room and returned unopened medication to pixis and discarded opened meds.
[2023-12-04] MEDS: amLODIPine BESYLATE 5 MG TABLET 10 MG PO (20:47)
[2023-12-04] MEDS: FERROUS SULFATE 325 MG TABLET DR PO (20:47)
[2023-12-04] MEDS: MIRABEGRON 25 MG ER TABLET 50 MG PO (20:47)
[2023-12-04] MEDS: ATORVASTATIN 10 MG TABLET 20 MG PO (20:48)
[2023-12-04] MEDS: FOLIC ACID 1 MG TABLET PO (20:48)
[2023-12-04] MEDS: TAMSULOSIN HCL 0.4 MG CAPSULE PO (20:48)
[2023-12-05] VITALS: BP 125/65; PULSE 64; RESP 16; TEMP 36.6; O2SAT 94
[2023-12-05] MEDS: oxyCODONE HCL (*CRX) 5 MG TAB IR 10 MG PO ×3 (04:12→14:40)
[2023-12-05] MEDS: SUCRALFATE 1 GM TABLET PO ×2 (07:48→12:01)
[2023-12-05 08:00] VITALS: BP 129/75; PULSE 66; RESP 17; TEMP 36.6; O2SAT 95
--- NOTE | 2023-12-05 08:49 | PM.DS ---
DS: Admitting Diagnosis Discharge Date 12/05/23 Admitting Diagnosis Metabolic acidosis Generalized weakness Pain in wrist Unable to ambulate DS: Discharge Diagnosis Discharge Diagnosis (1) Wrist pain: Code(s): M25.539 - Pain in unspecified wrist Status: Chronic DS: Summary Hospital Course Reason for hospitalization: Metabolic acidosis Generalized weakness Pain in wrist Unable to ambulate Hospital Course: This is a 68 year old male who presented to the [facility] bed program with inability to walk and generalized weakness. PT and OT were ordered for him as he was here for rehab needs. He recently was at [facility] with intractable nausea and vomiting and was treated for metabolic acidosis and dehydration. Patient did well with therapy and progressed while he was here. he is stable for discharge at this time. He will need to follow his primary care physician in 1 week. Upon discharge he plans on staying at a motel as a son is out of town. patient denies any fever, chills, nausea, vomiting, diarrhea, abdominal pain, chest pain, shortness a breath. He rates that his pain is 7/10 in his right wrist and he is unable to move or do anything with that hand. He does have a follow-up appointment with his orthopedic doctor on December 15. He is unable to take Tylenol due to pancreatitis that affected his liver and he currently has HAI so unable to take NSAIDS as well. We will go ahead and prescribe him oxycodone 5 mg for pain while he waits for his appointment with his orthopedic doctor. Transport is being made available for him today at 2:00 p.m.. final diagnosis: generalized weakness, pain and wrist Status at Discharge Cognitive/behavioral status at discharge: Alert and oriented x3 Functional status at discharge: independent ambulation Time Spent with Patient Time attestation: Total time spent providing and/or coordinating discharge services: Time spent: Greater than 30 minutes Exam Narrative: General: In no acute distress, well nourished Head: atraumatic, no encephalopathy Eyes: EOMI, PERRLA, sclera clear ENT: moist mucous membranes, nasal passages clear Neck: supple, no JVD, no adenopathy, trachea midline Cardiac: Normal S1 and S2. for, No murmur, gallops or friction rubs, peripheral pulses intact. Respiratory: Lungs clear to auscultation, no adventitious lung sounds, currently on room air Gastrointestinal: soft, non-distended, non-tender, normoactive bowel sounds. : voiding without difficulty. Extremities: limited range of motion and right wrist and hand, splint in place Skin: clean, dry, intact. No wounds or lesions. Neuro: Alert and oriented x4, cranial nerves intact, no neuro deficits. Psych: normal mood, normal affect, interactive DS: Data Data Completed and Pending Completed studies during hospitalization: alert and oriented x4 Pending studies at discharge: none Labs on day of discharge: none Procedures/Treatments: none Discharge Plan Discharge Attending physician on discharge: Leo Adams Discharging Clinician: Echo Pereyra Anticipated Discharge Date/Time: 12/05/23 08:27 Patient Disposition: Home, Self-Care Activity: as tolerated Diet: as tolerated Discharge Instructions: Follow up with your primary care doctor in 1 week. Get follow up labs before your appointment to recheck your creatinine level. Your Lisinopril has been cut down to 10 mg daily. Patient Instructions: Antibiotic Form, Lisinopril (By mouth), Oxycodone, Rapid Release (By mouth), Weakness (DC), Fall Prevention (DC) Patient Language: Bolivian Stand Alone Forms: General Discharge Information Follow-up/Referrals: UNKNOWN,DOCTOR [Primary Care Provider] - 1 week ( Keep and or Call and set up appt. within 1 week.) Discharge Medications: New lisinopril 10 mg Tablet 10 mg PO DAILY Qty: 30 0RF oxycodone 5 mg tablet 5 mg PO Q6H PRN (Reason: pain) Qty: 40 0RF Co
[2023-12-05 09:08] VITALS: PULSE 77
[2023-12-05] MEDS: DOXYCYCLINE HYCLATE 100 MG TABLET PO (09:08)
[2023-12-05] MEDS: LIPASE/AMYLASE/PROTEASE 12,000 UNITS CAP 6 CAP PO ×2 (09:08→13:30)
[2023-12-05] MEDS: METOPROLOL SUCCINATE EXT REL 50 MG TABCR PO (09:08)
[2023-12-05] MEDS: lisinopriL 10 MG TABLET PO (09:08)
[2023-12-05] MEDS: THIAMINE HCL 100 MG TABLET PO (09:08)
[2023-12-05] MEDS: PSYLLIUM POWDER PACKET 1 PACKET PO (09:08)
[2023-12-05] MEDS: PANTOPRAZOLE 40 MG TABLET PO (09:09)
[2023-12-05] MEDS: GABAPENTIN 300 MG CAPSULE PO ×2 (09:09→13:30)
[2023-12-05] MEDS: oxyBUTYnin CHLORIDE XL 5 MG TAB.ER.24 10 MG PO (09:09)
--- NOTE | 2023-12-05 15:00 | PC.NURSE ---
Discharge instructions reviewed with patient. All questions answered. Pt escorted via wheelchair to front hospital and assisted into transport vehicle.
--- NOTE | 2023-12-07 09:13 | PC.NURSE ---
Discharge call back attempted, no answer
--- NOTE | 2023-12-08 08:54 | PC.NURSE ---
Discharge call back attempted, no answer
--- NOTE | 2023-12-09 09:33 | PC.NURSE ---
Discharge call back attempted, no answer
== END 2023-12-05 15:00 | disposition home or self-care (01) | DRG 948 ==
PROVIDERS: Nurse Practitioner Family; Admitting Provider Internal Medicine; Visit Provider Internal Medicine
DX: R53.1 Weakness (principal); R26.2 Difficulty in walking, not elsewhere classified; I10 Essential (primary) hypertension; C61 Malignant neoplasm of prostate; E78.5 Hyperlipidemia, unspecified; E03.9 Hypothyroidism, unspecified; K86.89 Other specified diseases of pancreas; K57.30 Diverticulosis of large intestine without perforation or abscess without bleeding; K21.9 Gastro-esophageal reflux disease without esophagitis; M19.90 Unspecified osteoarthritis, unspecified site; M25.531 Pain in right wrist; Z86.010 Personal history of colon polyps; Z79.891 Long term (current) use of opiate analgesic
CPT/HCPCS: 36415; 80048; 85027; 97110; 97112; 97116; 97161; 97166; 97530; 97535; A9270